=== PATIENT | female | born 1975 | race Caucasian/White ===

== ENCOUNTER 2019-08-14 16:37 | Outpatient (RCR) | payer BC, SELFPAY ==
--- NOTE | 2019-08-20 15:39 | PTOPEVAL ---
Thank you for referring this patient to [facility]. Please review, sign, date and return this plan of care JHONATAN. I agree with and certify that the following plan of care is medically necessary. Referring Physician Date Admitting Provider: Attending Provider: Saul Yost, Referring Provider: *PT Outpatient Evaluation Start: 08/14/19 17:03 Freq: Status: Active Protocol: Document 08/14/19 17:00 [facility] (Rec: 08/14/19 17:23 [facility] [id number]) Therapy Assessment Status Assessment Status Assessment Status Evaluation Evaluation Information Problem Diagnosis L illiopsoas tendinopathy Onset 05/08/19 Subjective Information patient reports she has no Query Text:As Reported By Patient/ injury. she reports around Family thanksgiving of this year she was having pain and instability of the L LE. she reports she did have an MRI of the L hip. she reports she does have a labral tear and a tendonitis of the L hip. she reports she had an injection last monday for the tendonitis . she report no change in symptoms (was worse for a few days). she reports she has increased pain with lifting her LE up into her car and into bed. 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 Prior Level of Function Comments Additional Prior Level of Function prior to thanks, she Comments reports she was without any pain or symptoms of the L LE. she reports no change or increase in activity. Pain Assessment Timing of Pain Assessment Timing of Pain Assessment Assessment Pain Scale Pain Scale Used Numeric (1 - 10) Self Report Pain Assessment Left Hip(s) Reported Pain Level 6 Pain Description Aching,Sharp,Stabbing, Throbbing Current Pain Intensity 6 Lowest Pain Intensity 5 Greatest Pain Intensity 10 Pain Aggravating Factors Lifting,Walking,Weight Bearing /Standing Other Pain Aggravating Factors better in the mornings Pain Score Pain Score 6: Self Report Lower Extremity Range of Motion Hip Range of Motion Left Hip Flexion Range of Motion - Active 100
--- NOTE | 2019-08-22 17:09 | PCPTNOTE ---
08/22/19 - patient called and cancelled therapy visit this date. JTF
--- NOTE | 2019-10-29 11:15 | PCPTNOTE ---
Spoke to patient and she stated she will call us back if she gets an opportunity to come back to therapy. Because of her work schedule she does not have time now. LJ
== END 2019-08-20 08:13 | disposition home or self-care (01) ==
LOC: CHSPT 16:37
PROVIDERS: Visit Provider Orthopaedic Surgery
DX: M76.12 Psoas tendinitis, left hip (principal)
CPT/HCPCS: 97014; 97110; 97161; G0283

== ENCOUNTER 2019-08-28 09:37 | Outpatient (CLI) | payer BC, SELFPAY ==
--- NOTE | ~2019-08-28 | MM_ITS ---
EXAMINATION: MM screening [facility] BI w tunde HISTORY: Screening mammogram TECHNIQUE: Craniocaudal and mediolateral oblique 3-D tomosynthesis images were obtained and synthetic 2-D images were generated. CAD analysis was submitted and interpreted. COMPARISON: 07/10/2018, 07/11/2017, 04/08/2016 BREAST PARENCHYMAL COMPOSITION: The breasts are extremely dense, which lowers the sensitivity of mamm ography. FINDINGS: There are bilateral breast masses which are stable to decreased in size. There is no eviden ce of suspicious mass, calcification, or architectural distortion to suggest malignancy in either elbert ast. There has been no suspicious interval change. IMPRESSION: 1. No mammographic evidence of malignancy. 2. Recommend routine screening mammography in one year. BI-RADS Category 2: Benign finding(s). Reviewed, dictated and finalized at location A.
== END 2019-08-28 09:38 | disposition home or self-care (01) ==
LOC: ANHIMG 09:41
PROVIDERS: Visit Provider Obstetrics & Gynecology
DX: Z12.31 Encounter for screening mammogram for malignant neoplasm of breast (principal)
CPT/HCPCS: 77063; 77067

== ENCOUNTER 2020-10-21 07:44 | Outpatient (CLI) | payer BC, SELFPAY ==
--- NOTE | ~2020-10-21 | MM_ITS ---
EXAMINATION: MM screening [facility] BI w tunde HISTORY: Screening TECHNIQUE: Craniocaudal and mediolateral oblique 3-D tomosynthesis images were obtained and synthetic 2-D images were generated. CAD analysis was submitted and interpreted. COMPARISON: Comparison to multiple prior studies sequentially, with oldest reviewed study dated 03/20. BREAST PARENCHYMAL COMPOSITION: The breasts are extremely dense, which lowers the sensitivity of mamm ography. FINDINGS: There are bilateral breast masses which are obscured by dense fibroglandular tissue in the lower half of the right breast and lower central aspect of the left breast. There are benign right br east calcifications. No architectural distortion. IMPRESSION: 1. Bilateral breast masses. 2. Additional mammographic views and possible breast ultrasound are recommended. BI-RADS CATEGORY 0 - INCOMPLETE STUDY, NEED ADDITIONAL IMAGING EVALUATION. Reviewed, dictated and finalized at location A. IMPRESSION: 1. Bilateral breast masses. 2. Additional mammographic views and possible breast ultrasound are recommended . BI-RADS CATEGORY 0 - INCOMPLETE STUDY, NEED ADDITIONAL IMAGING EVALUATION.
== END 2020-10-21 07:45 | disposition home or self-care (01) ==
LOC: ANHIMG 07:50
PROVIDERS: Visit Provider Obstetrics & Gynecology
DX: Z12.31 Encounter for screening mammogram for malignant neoplasm of breast (principal); R92.8 Other abnormal and inconclusive findings on diagnostic imaging of breast
CPT/HCPCS: 77063; 77067

== ENCOUNTER 2020-10-28 16:44 | Emergency (ER) | payer BC, SELFPAY ==
--- NOTE | ~2020-10-28 | CT_ITS ---
EXAMINATION: CT lumbar spine w con EXAM DATE: 10/28/2020 20:31 INDICATION: Low back pain radiating down legs. Clinical concern for infection. TECHNIQUE: Spiral CT of the lumbar spine was performed following intravenous injection of 100 mL Omni paque 350 solution. Axial, coronal and sagittal images lumbar spine were reviewed. The dose-length product (DLP) for this examination was 732.06 mGy-cm. The exposure was tailored according to patien t size (auto mA exposure control), and iterative reconstruction (ASIR) was used as additional dose re duction technique. There is no prior study for comparison. FINDINGS: No endplate erosive change or evidence of paraspinal fluid collection or inflammation. Ther e are mild disc bulges at L3-4 and L4-5, with mild central canal stenosis at these 2 levels. Number t glynn mild lower lumbar neural foraminal stenosis. Mild to moderate facet arthropathy from L3 down. Sac rum, sacroiliac joints, sacral arcuate lines are intact. There are no acute fractures identified. Th ere are cholecystectomy clips. There are no areas of abnormal enhancement on the post contrast images . The kidneys were also imaged and there is no hydronephrosis or evidence of pyelonephritis. IMPRESSION: 1. No acute lumbar findings. 2. Mild to moderate lower lumbar facet arthropathy. 3. Mild disc disease. Reviewed, dictated and finalized at location A.
[2020-10-28 16:57] VITALS: BP 114/53; PULSE 102; RESP 16; TEMP 36.1; O2SAT 100
[2020-10-28 17:10] LABS: Basophils Percent Auto 0.4 % (0.2-1.2); Eosinophils Absolute Auto 0.1 K/mm3 (0-0.3); Eosinophils Percent Auto 1.6 % (0-4.4); Hematocrit 38.5 % (37.0-47.0); Hemoglobin 12.1 g/dL (12.0-15.0); Immature Granulocyte Absolute 0.05 K/mm3 (0.00-0.031); Immature Granulocyte Percent A 0.6 % (0-0.5); Lymphocytes Absolute Auto 2.83 K/mm3 (0.9-3.2); Lymphocytes Percent Auto 34.1 % (18.3-44.2); Mean Corpuscular HGB Conc 31.4 g/dl (32-36); Mean Corpuscular Hemoglobin 27.6 pg (26-34); Mean Corpuscular Volume 87.7 fl (80-100); Mean Platelet Volume 9.5 fl (7.4-10.4); Monocytes Absolute Auto 0.7 K/mm3 (0.1-0.6); Monocytes Percent Auto 8.3 % (2.6-8.5); Neutrophils Absolute Auto 4.6 K/mm3 (1.3-6.7); Platelet Count Result 261 k/mm3 (150-375); Red Blood Count 4.39 M/mm3 (4.2-5.4); Red Cell Distribution Width 13.2 % (11.5-14.5); White Blood Count 8.3 K/mm3 (4.5-10.0)
[2020-10-28 17:23] LABS: Alanine Aminotransferase 13 U/L (4-35); Albumin Level 4.4 g/dL (3.5-5.1); Alkaline Phosphatase 73 U/L (38-126); Anion Gap 4 mmol/L (8-16); Aspartate Amino Transferase 23 U/L (14-36); Bilirubin,Total < 0.1 mg/dL (0.2-1.3); Blood Urea Nitrogen 11 mg/dL (7-17); CRP 0.7 mg/dL (<1.0); Calcium 9.2 mg/dL (8.4-10.2); Carbon Dioxide 31 mmol/L (22-30); Chloride 104 mmol/L (98-107); Estimated CRCL calculation 92 ml/min; Estimated Glomerular Filt Rate > 60; Glucose 103 mg/dL (65-105); Potassium 3.9 mmol/L (3.4-5.0); Sodium 139 mmol/L (137-145)
[2020-10-28 17:32] LABS: Add Urine Microscopic? NO; Appearance Urine Clear (Clear); Bilirubin Urine Negative (Negative); Blood Urine Negative (Negative); Color Urine Yellow (Yellow); Glucose Urine UA Negative (Negative); Ketones Urine Negative (Negative); Leukocyte Esterase Ur Negative LEU/UL (Negative); Nitrate Urine Negative (Negative); Protein Urine Negative (Negative); Specific Grav Ur 1.012 (1.001-1.035); Urobilinogen Urine Negative mg/dL (<2.0)
[2020-10-28 17:57] LABS: Erythrocyte Sedimentation Rate 9 mm/hr (0-20)
[2020-10-28 18:27] LABS: Amphetamine Screen Urine Negative (Negative); Barbiturate Screen Urine Negative (Negative); Benzodiazepines Screen Urine Negative (Negative); Cannabinoid Screen Urine Negative (Negative); Cocaine Screen Urine Negative (Negative); Methadone Screen Urine Negative (Negative); Opiate Screen Urine Negative (Negative); Phencyclidine Screen Urine Negative (Negative)
--- NOTE | 2020-10-28 19:22 | ED.BACK ---
HPI - Back Pain/Injury General Chief Complaint: Back Pain/Injury Stated Complaint: back pain Time Seen by Provider: 10/28/20 18:49 History of Present Illness HPI Narrative: Patient is a 45-year-old female who presents ER with low back pain and fecal incontinence. Patient reports she has had some intermittent back pain over the last couple months. This is been related to a UTI that required multiple doses of antibiotics for treatment. She has been on 4 rounds of antibiotics most recently completed in last week. She reports her back pain came back yesterday. Its in the very low back and radiates typically into her low but. Now she is occasionally getting some radiation into her lower leg. Worse with walking. Reports she typically has bowel movements every 3 days and she consents her ability to defecate. Reports she woke up last night and had had a diarrhea event in her bed. She then had a second 1 later on. Today while at work she had a third event where she had liquid stool incontinence. Each bowel movement became progressively smaller in volume. She denies having crampy abdominal pain. She reports she continues to have sensation within her perineum. She has no physical weakness to her legs. She has no trauma to her back. No known injury. Related Data Home Medications Medication Instructions Recorded Confirmed bupropion HCl mg PO 10/28/20 famotidine [Pepcid] 20 mg PO PRN 10/28/20 Allergies Allergy/AdvReac Type Severity Reaction Status Date / Time latex Allergy Anaphylaxis Verified 10/28/20 19:00 Review of Systems Review of Systems: All systems reviewed & are unremarkable except as noted in HPI and below Constitutional: Constitutional: Denies chills, Denies fever(s) and Denies weakness Gastrointestinal: Gastrointestinal: Denies abdominal pain, Denies bloating, Reports diarrhea, Denies nausea and Denies vomiting Genitourinary: Genitourinary: Denies nocturia, Denies dysuria, Denies flank pain and Denies urinary incontinence Musculoskeletal: Musculoskeletal: Reports back pain, Denies joint swelling and Denies muscle cramps Neurologic: Denies focal weakness and Denies numbness PMF Past Medical History Medical History (Updated 10/28/20 @ 20:50 by Arpit Small MD) Depression Ulnar tunnel syndrome Surgical History Surgical History (Updated 10/28/20 @ 19:28 by Arpit Small MD) Fusion of toes History of cholecystectomy Social History Social History (Updated 10/28/20 @ 19:28 by Arpit Small MD) Smoking status: Never smoker Exam Narrative: Exam Narrative: GENERAL: Well-appearing, well-nourished, and in no acute distress. HEAD: Normocephalic, atraumatic. ENT: Mucous membranes moist. CHEST: Clear to auscultation. No respiratory distress. HEART: Regular rate and rhythm. Normal peripheral pulses. ABDOMEN: Soft, nontender, nondistended. Back: Mild tenderness bilateral SI region and midline at L5, no swelling/redness/bruising/spam. : Normal sensation around the vagina/perineum/rectum, normal rectal tone on SAMANTHA. EXTREMITIES: BLE with normal strength and sensation. SKIN: Warm, dry, no rash. NEURO: Alert and oriented x3. Course Course Emergency Course: Pain improving with Toradol. Informed results. Feels comfortable with discharge plan. Vital Signs Vital signs: Vital Signs Temperature 97.0 F L 10/28/20 16:57 Pulse Rate 102 H 10/28/20 16:57 Respiratory Rate 16 10/28/20 16:57 Blood Pressure 114/53 L 10/28/20 16:57 Pulse Oximetry 100 10/28/20 16:57 Temperature 97.0 F L 10/28/20 16:57 Pulse Rate 102 H 10/28/20 16:57 Respiratory Rate 16 10/28/20 16:57 Blood Pressure 114/53 L 10/28/20 16:57 Pulse Oximetry 100 10/28/20 16:57 MDM - Back Pain/Injury Lab Data Result diagrams: 10/28/20 17:05 10/28/20 17:05 Labs: Lab Results 10/28/20 10/28/20 10/28/20 Range/Units 17:05 17:05 17:15 WBC 8.3 (4.5-10.0) K/m
[2020-10-28] MEDS: KETOROLAC 30 MG/ML VIAL (*BKC) IV PUSH (20:17)
[2020-10-28 21:57] VITALS: BP 121/62; PULSE 89; RESP 16; O2SAT 99
== END 2020-10-28 21:56 | disposition home or self-care (01) ==
PROVIDERS: Emergency Medicine Emergency Medical Services; Emergency Provider Emergency Medicine
DX: M54.5 Low back pain (principal); F32.9 Major depressive disorder, single episode, unspecified
CPT/HCPCS: 36415; 72132; 80053; 80307; 81003; 81025; 85025; 85652; 86140; 96374; 99284; J1885; Q9967

== ENCOUNTER 2020-11-10 12:17 | Outpatient (CLI) | payer BC, SELFPAY ==
--- NOTE | ~2020-11-10 | MMUS_ITS ---
EXAMINATION: MM diagnostic mammo BI, US breast BI complete HISTORY: Bilateral breast masses reported on 10/21/2020 screening mammogram TECHNIQUE: Additional 3-D tomosynthesis images of both breasts were performed and synthetic 2-D image s were generated. CAD analysis was submitted and interpreted. High resolution bilateral complete saleem st ultrasound was performed. COMPARISON: 10/21/2020 bilateral digital screening mammogram FINDINGS: MAMMOGRAPHIC FINDINGS: Occasional bilateral punctate benign-appearing microcalcifications are noted. Bilateral circumscribed breast masses are suggested, measuring up to 2 cm in the central left breast, with halo sign, suggesting cyst. Given the presence of bilateral masses and the very dense stroma which may obscure masses, bilateral complete breast ultrasound examination was performed. ULTRASOUND: There are multiple bilateral sonolucent lesion with posterior enhancement consistent with simple cyst , measuring up to 2 cm maximal dimension on the right at 12:00 and 2 cm maximal dimension on the left at 12:00 position as well. There is one complicated cyst of the right breast at 2:00, measuring 5.9 x 8.3 x 11.4 mm, without int ernal vascularity, with through transmission. IMPRESSION: 1. Benign findings. Multiple bilateral breast cysts; no mammographic evidence of malignancy 2. Routine mammographic screening is recommended, with ultrasound supplementation as clinically appro priate BI-RADS Category 2: Benign finding(s). Reviewed, dictated and finalized at location A. IMPRESSION: 1. Benign findings. Multiple bilateral breast cysts; no mammographic evidence o f malignancy 2. Routine mammographic screening is recommended, with ultrasound supplementati on as clinically appropriate BI-RADS Category 2: Benign finding(s).
== END 2020-11-10 12:18 | disposition home or self-care (01) ==
PROVIDERS: Visit Provider Obstetrics & Gynecology
DX: N60.11 Diffuse cystic mastopathy of right breast (principal); N60.12 Diffuse cystic mastopathy of left breast
CPT/HCPCS: 76641; 77066

== ENCOUNTER 2021-12-21 07:33 | Outpatient (CLI) | payer OTHER, SELFPAY ==
--- NOTE | ~2021-12-21 | MM_ITS ---
EXAMINATION: MM screening [facility] BI w tunde HISTORY: Screening TECHNIQUE: Craniocaudal and mediolateral oblique 3-D tomosynthesis images were obtained and synthetic 2-D images were generated. CAD analysis was submitted and interpreted. COMPARISON: Comparison to multiple prior studies sequentially, with oldest reviewed study dated 07/11. BREAST PARENCHYMAL COMPOSITION: The breasts are extremely dense, which lowers the sensitivity of mamm ography FINDINGS: There is no evidence of suspicious mass, calcification, or architectural distortion to sugg est malignancy in either breast. There has been no suspicious interval change. IMPRESSION: 1. No mammographic evidence of malignancy. 2. Recommend routine screening mammography in one year. BI-RADS Category 1: Negative Reviewed, dictated and finalized at location A.
== END 2021-12-21 07:34 | disposition home or self-care (01) ==
PROVIDERS: Visit Provider Obstetrics & Gynecology
DX: Z12.31 Encounter for screening mammogram for malignant neoplasm of breast (principal)
CPT/HCPCS: 77063; 77067

== ENCOUNTER 2022-07-11 07:12 | Outpatient (CLI) | payer OTHER, SELFPAY ==
[2022-07-11 07:49] LABS: Hemoglobin A1C 5.4 % (<5.7)
[2022-07-11 08:23] LABS: Alanine Aminotransferase 21 U/L (14-59); Albumin Level 4.3 g/dL (3.4-5.0); Alkaline Phosphatase 103 U/L (46-116); Anion Gap 10 mmol/L (8-16); Aspartate Amino Transferase 17 U/L (15-37); Bilirubin,Total 0.3 mg/dL (0.00-1.00); Blood Urea Nitrogen 17 mg/dL (7-18); Carbon Dioxide 26 mmol/L (21-32); Chloride 105 mmol/L (98-108); Cholesterol 191 mg/dL (0-200); Estimated Glomerular Filt Rate > 60; Glucose 96 mg/dL (70-99); HDL Direct 32 mg/dL (40-60); LDL Cholesterol Calculated 111 mg/dL (<130); Osmolality Calculated 293 mOsm/kg (285-295); Potassium 4.4 mmol/L (3.5-5.1); Sodium 141 mmol/L (136-145); Total Protein 7.5 g/dL (6.4-8.2); Triglycerides 242 mg/dL (0-150)
[2022-07-11 08:25] LABS: Thyroid Stimulating Hormone Reflex 1.29 u/IU/mL (0.36-3.74)
[2022-07-16 20:20] LABS: CRP, High Sensitivity >10.0 mg/L (***)
== END 2022-07-11 07:13 | disposition home or self-care (01) ==
LOC: CHSLAB 07:18
PROVIDERS: PCP Family Medicine
DX: E66.3 Overweight (principal); Z13.1 Encounter for screening for diabetes mellitus; Z13.220 Encounter for screening for lipoid disorders; Z13.29 Encounter for screening for other suspected endocrine disorder
CPT/HCPCS: 36415; 80053; 80061; 83036; 83525; 84443; 86141

== ENCOUNTER 2022-07-25 09:24 | Observation (INO) | payer OTHER, SELFPAY ==
[2022-07-25] VITALS (33 sets, daily range): BP systolic 99–126; BP diastolic 50–86; PULSE 69–114; RESP 11–20; TEMP 35.8–36.6; O2SAT 97–100; BMI 29.2; BMI 31.2
--- NOTE | ~2022-07-25 | MR_ITS ---
EXAMINATION: MR brain/brain stem wo con DATE: 07/26/2022 11:51 INDICATION: Dizziness. Migraine headache. TECHNIQUE: Magnetic resonance imaging (MRI) of the brain and brainstem was performed without intraven ous contrast. COMPARISON: Head CT 07/25/2022 FINDINGS: There is no intracranial hemorrhage, acute infarction, or abnormal intracranial mass lesion . There are a few areas of nonspecific increased T2-weighted signal intensity in the cerebral white m atter, which is within normal limits for the patient's age. The ventricles are normal in size. There is mild mucosal thickening in the ethmoid sinuses. The orbits are normal. The mastoid air cells are n ormal. IMPRESSION: 1. Normal brain. Reviewed, dictated and finalized at location A. IFIED TUMOR REGISTRAR IMPRESSION: 1. Normal brain.
--- NOTE | ~2022-07-25 | CT_ITS ---
EXAMINATION: CTA chest PE protocol DATE: 07/25/2022 14:55 INDICATION: Chest pain. Dyspnea. TECHNIQUE: Computed tomography angiography (CTA) of the chest was performed with 100 mL Omnipaque-350 intravenous contrast timed to evaluate the pulmonary arteries. Coronal maximum intensity projection 3D-reconstructions were created by the technologist. Automated exposure control and iterative reconst ruction technique were employed. The dose-length product was 251.02 mGy-cm. COMPARISON: None. FINDINGS: The lungs demonstrate mild atelectasis. No pleural effusion. The heart size is normal. No p ericardial effusion. There is no pulmonary embolus. There are changes of cholecystectomy. There is mo derate thoracic spondylosis. There is thoracic dextroscoliosis. IMPRESSION: 1. No pulmonary embolus. Reviewed, dictated and finalized at location A. TEGIC PLANNING DIRECTOR IMPRESSION: 1. No pulmonary embolus.
--- NOTE | ~2022-07-25 | XR_ITS ---
Clinical Indication: Chest pain PA and lateral views of the chest: Comparison: None Findings: The lungs are clear, without evidence of focal consolidation or pleural effusion. Cardiome diastinal silhouette is within normal limits. Bones and soft tissues are unremarkable. Impression: Normal chest. Reviewed, dictated and finalized at [facility]. FOREMAN Impression: Normal chest.
--- NOTE | ~2022-07-25 | CT_ITS ---
EXAMINATION: CT brain wo con DATE: 07/25/2022 12:25 INDICATION: Dizziness. TECHNIQUE: Computed tomography (CT) of the head was performed without intravenous contrast. The mA wa s adjusted according to patient size. Iterative reconstruction technique was employed. The dose-lengt h product was 605.33 mGy-cm. COMPARISON: None FINDINGS: There is no intracranial hemorrhage, acute infarction, or abnormal intracranial mass lesion . The ventricles are normal in size. There is mild mucosal thickening in the ethmoid sinuses. The orb its are normal. The mastoid air cells are normal. IMPRESSION: 1. Normal brain. Reviewed, dictated and finalized at location A. AL ASSISTANT IMPRESSION: 1. Normal brain.
--- NOTE | 2022-07-25 09:30 | ECG_ITS ---
Measurements Intervals Cutler Rate: 113 P: 77 NM: 136 QRS: 41 QRSD: 84 T: 72 QT: 303 QTc: 416 Interpretive Statements SINUS TACHYCARDIA NONSPECIFIC ST & T-WAVE ABNORMALITY BORDERLINE ECG NO PREVIOUS ECG AVAILABLE FOR COMPARISON Electronically Signed On 07-25-2022 16:18:00 SAFETY INSTRUCTOR by David Flores M.D.
[2022-07-25 10:03] LABS: Basophils Percent Auto 0.2 % (0.2-1.2); Eosinophils Percent Auto 0.5 % (0-4.4); Hematocrit 46.5 % (37.0-47.0); Hemoglobin 14.9 g/dL (12.0-15.0); Immature Granulocyte Absolute 0.03 K/mm3 (0.00-0.031); Immature Granulocyte Percent A 0.4 % (0-0.5); Lymphocytes Absolute Auto 1.68 K/mm3 (0.9-3.2); Mean Corpuscular Hemoglobin 27.3 pg (26-34); Mean Corpuscular Volume 85.3 fl (80-100); Mean Platelet Volume 9.1 fl (7.4-10.4); Monocytes Absolute Auto 0.5 K/mm3 (0.1-0.6); Monocytes Percent Auto 5.8 % (2.6-8.5); Neutrophils Absolute Auto 6.1 K/mm3 (1.3-6.7); Neutrophils Percent Auto 73.1 % (45.5-73.1); Platelet Count Result 304 k/mm3 (150-375); Red Blood Count 5.45 M/mm3 (4.2-5.4); White Blood Count 8.4 K/mm3 (4.5-10.0)
[2022-07-25 10:15] LABS: Prothrombin Time 13.1 Seconds (11.1-14.7)
[2022-07-25 10:16] LABS: Partial Thromboplastin Time 32.4 SECONDS (22.3-36.8)
[2022-07-25 10:18] LABS: Alanine Aminotransferase 20 U/L (6-35); Albumin Level 4.7 g/dL (3.5-5.1); Alkaline Phosphatase 102 U/L (38-126); Anion Gap 9 mmol/L (8-16); Aspartate Amino Transferase 22 U/L (14-36); Bilirubin,Total 0.7 mg/dL (0.2-1.3); Blood Urea Nitrogen 17 mg/dL (7-17); Calcium 8.3 mg/dL (8.4-10.2); Carbon Dioxide 22 mmol/L (22-30); Chloride 102 mmol/L (98-107); Estimated Glomerular Filt Rate > 60; Glucose 98 mg/dL (65-110); Lipase 80 U/L (23-300); Potassium 3.4 mmol/L (3.4-5.0); Sodium 133 mmol/L (137-145)
[2022-07-25 10:29] LABS: Troponin I < 0.012 ng/mL (0.000-0.034)
--- NOTE | 2022-07-25 12:16 | ED.CHESTPAIN ---
HPI - Chest Pain General Chief Complaint: Chest Pain Stated Complaint: chest pain, sob, nausea, dizziness Time Seen by Provider: 07/25/22 12:03 Source: RN notes reviewed History of Present Illness HPI narrative: Patient presents emergency department from home for chest pain. Patient symptoms began approximately 5 PM last night. Pain is located over the left side of the chest and radiates around into the left shoulder blade as well as up into the left neck the pain is described as a pressure in nature. States that nothing makes his symptoms better or worse states that the pain has been constant since last night states it was initially associated with nausea but denies any nausea at this time but does note shortness of breath she states that she is also been dizzy since that time states dizziness is worse with moving her head as well as sitting upright and improved with laying down flat she denies any numbness or weakness to the extremities she denies any vision changes or any other focal deficits Related Data Home Medications Medication Instructions Recorded Confirmed famotidine 20 mg tablet (Pepcid) 20 mg PO PRN ind 10/28/20 12/29/21 Allergies Allergy/AdvReac Type Severity Reaction Status Date / Time latex Allergy Unknown Unknown Verified 07/25/22 12:02 Review of Systems Review of Systems: Gen.: Denies fevers or chills Eyes: Denies eye pain or visual change ENT: Denies congestion Respiratory: Reports shortness of breath CV: Reports chest pain GI: Reports nausea denies abdominal pain vomiting or diarrhea Musculoskeletal: Denies back pain or muscle pain Neuro: See HPI Skin: Denies rash Except as documented, all other systems reviewed and negative PMFSH Past Medical History Medical History Acid reflux Anemia Anxiety 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 Depression Depression Dyssynergia Migraines Ulnar tunnel syndrome Vaginal delivery Surgical History Surgical History Fusion of toes History of bilateral salpingectomy History of cholecystectomy History of hip replacement History of laparoscopic-assisted vaginal hysterectomy Hx of tonsillectomy Family History Family History Father Diabetes mellitus Family history of hypercholesterolemia Hypertension Malignant neoplasm of prostate Cerebrovascular accident Mother Diabetes mellitus Family history of hypercholesterolemia Hypertension Patient's mother is in good health Cerebrovascular accident Social History Social History Smoking status: Never smoker Alcohol intake: current Exam Narrative: APPEARANCE: No acute distress, nontoxic, resting in bed HEENT: Normocephalic, atraumatic, OMM, TMs clear bilaterally EYES: PERRL, EOMI RESPIRATORY: No respiratory distress, clear to auscultation bilaterally with no rhonchi wheezing or rales CARDIOVASCULAR: RRR s murmur ABDOMINAL: Soft, nontender, nondistended MUSCULOSKELETAL: Moves all extremities. No clubbing, cyanosis or edema. NEURO: A and O ?3, following commands, speech normal, cranial nerves II through XII grossly intact,muscle strength 5 out of 5 bilateral upper and lower extremities no pronator drift SKIN:: Warm, dry. Normal Color PSYCHIATRIC: Normal affect/mood Course Course Emergency Course: Patient continues to have dizziness following Antivert Valium given at that time with no change in dizziness Patient continues to still note chest pain Discussed with DAISY Gandara for Dr. Beth presentation work-up agrees with admission Discussed with patient and family results of workup and diagnosis. Discussed need for admission. Patient and family understand and agree to current treatment plan Vital Signs Vital signs: Vital Signs Temperature 97.1 F L 07/25/22 09:44 Pulse Rate 114 H
[2022-07-25] MEDS: MECLIZINE HCL 25 MG TABLET PO (12:18)
[2022-07-25] MEDS: SODIUM CHLORIDE 0.9% IV 1,000 ML 999 ML IV CONT (12:54)
[2022-07-25 13:04] LABS: Troponin I < 0.012 ng/mL (0.000-0.034)
[2022-07-25 13:29] LABS: D Dimer 0.42 ug/mL (<0.48)
[2022-07-25] MEDS: KETOROLAC 30 MG/ML VIAL (*BKC) IV PUSH (14:02)
[2022-07-25] MEDS: diazePAM (*CRX) 2 MG TABLET PO (15:09)
[2022-07-25 15:50] LABS: Troponin I < 0.012 ng/mL (0.000-0.034)
[2022-07-25 16:34] LABS: Influenza A QL RT-PCR Negative (Negative); Influenza B QL RT-PCR Negative (Negative); SARS-CoV-2 RNA PCR Negative
[2022-07-25] MEDS: SODIUM CHLORIDE 0.9% IV 1,000 ML 75 ML IV CONT (18:06)
--- NOTE | 2022-07-25 18:12 | ADMGEN ---
This patient, Kaykay Collins, was admitted to IMU Room 211-01. Patient/family oriented to hospital policies and general routines including ID bracelet, bed and alarms, visiting hours, pain management, procedures, bathroom and other care routines, personal items, smoking policy, room service/diet, and visiting hours. Information on how to activate the Rapid Response Team has been discussed. Patient/Family are encouraged to report perceived risks to care and to ask questions if they do not understand what they are told or what they should do.
[2022-07-25] MEDS: ACETAMINOPHEN/ASPIRIN/CAFFEINE 250-250-65 MG TABLET 1 TABLET PO (21:28)
--- NOTE | 2022-07-25 22:07 | PM.IMHP ---
H&P: HPI History of Present Illness Date/Time: 07/25/22 22:07 Chief Complaint: Chest pain Narrative: This is a 46-year-old female patient who came to the emergency room for complaints of chest pain. The symptoms started around 5:00 p.m. last night. Is open left-sided chest and radiates into her left shoulder blade and upper left neck. She stated that she is pressure in nature. The patient was complaining of pain that was pretty constant. She also complained some a migraine and feeling dizzy. Her dizziness is more positional but occasionally the room is spinning. She denies any numbness or weakness. She was slightly nauseated. No fever chills or diarrhea. No visual changes or focal weakness. Sodium is 133. Troponin negative x2. Patient is negative for influenza a B and COVID. EKG was read as sinus tachycardia. Heart rate 113. Chest CTA read as no pulmonary embolus. Head CT was read as normal brain. Chest x-ray read as normal chest. The patient was given aspirin, Antivert, IV fluids, Toradol, and Valium. The patient stated that she slept but she was still dizzy when she woke up. The patient is being admitted to observation status on the date of service of 07/25/2022. Review of Systems Review of Systems: See HPI All systems reviewed & are unremarkable except as noted in HPI and below Constitutional: Constitutional: Reports as per HPI and Reports no additional constitutional complaints Eyes: Eyes: Reports as per HPI and Reports no additional eye complaints ENT: Reports system reviewed and no additional complaints, except as documented and Reports Normal hearing present Cardiovascular: Cardiovascular: Reports no additional cardiovascular complaints Respiratory: Respiratory: Reports no additional respiratory complaints and Reports no additional respiratory complaints Gastrointestinal: Gastrointestinal: Reports as per HPI and Reports no additional gastrointestinal complaints Musculoskeletal: Musculoskeletal: Reports no additional musculoskeletal complaints Integumentary/Breasts: Skin/Breast: Reports system reviewed and no additional complaints, except as docu and Reports as per HPI Neurologic: Reports system reviewed and no additional complaints, except as documented, Reports as per HPI and Reports Normal hearing present Psychiatric: Psychiatric: Reports no additional psychiatric complaints and Reports as per HPI Endocrine: Endocrine: Reports no additional endocrine complaints Hematologic/Lymphatic: Hematologic/Lymphatic: Reports no additional hematologic/lymphatic complaints Allergic/Immunologic: Allergic/Immunologic: Reports no additional allergic/immunologic complaints [facility] Past Medical History Medical History Acid reflux Anemia Anxiety 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 Depression Depression Dyssynergia Migraines Ulnar tunnel syndrome Vaginal delivery Surgical History Surgical History Fusion of toes History of bilateral salpingectomy History of cholecystectomy History of hip replacement History of laparoscopic-assisted vaginal hysterectomy Hx of tonsillectomy Family History Family History Father Diabetes mellitus Family history of hypercholesterolemia Hypertension Malignant neoplasm of prostate Cerebrovascular accident Mother Diabetes mellitus Family history of hypercholesterolemia Hypertension Patient's mother is in good health Cerebrovascular accident Social History Social History (Updated 07/25/22 @ 23:39 by Nichol Medina NP) Social History: The patient is and she has 2 children. She occasionally drinks a glass a wine. 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 She occasionally drinks a glass of wine. Her is the power deputy attorney general for healthcare Code status full code Smoking status: Never smoker
[2022-07-26] VITALS (12 sets, daily range): BP systolic 108–123; BP diastolic 55–68; PULSE 70–100; RESP 18–20; TEMP 36.2–36.4; O2SAT 99–100
--- NOTE | 2022-07-26 | ECHO_ITS ---
Patient Info Name: Kaykay Collins Age: 46 years : 1975 Gender: Female Ht: 66 in Wt: 193 lbs BSA: 2.05 m2 HR: 83 bpm BP: 108 / 61 mmHg Heart Rhythm: Sinus Rhythm Exam Date: 07/26/2022 9:16 AM Exam Location: [facility] Pulmonary Patient Status: Inpatient Admit Date: 07/25/2022 Staff Ordering Physician: Nichol Medina NP Stencil Sprayer: Kermit Machado, BARRY, RT Attending Provider: Milli Beth MD Referring Physician: Carol HYMAN; Exam Type: CA echo dop color flow w con Study Info Indications R00.0 - Tachycardia, unspecified R42 - Dizziness and giddiness Complete two-dimensional, color flow and Doppler transthoracic echocardiogram is performed with contrast to opacify the left ventricle and to improve the deliniation of the left ventricle endocardial borders. Summary 1. Left ventricular chamber dimension is normal. 2. Left ventricular systolic function is normal, estimated at 65-70%. 3. The left ventricular diastolic function is normal. 4. Right ventricular systolic function is normal. 5. There is trace mitral valve regurgitation. 6. There is mild tricuspid valve regurgitation. Left Ventricle Left ventricular chamber dimension is normal. Left ventricular systolic function is normal, estimated at 65-70%. There is no increased left ventricular wall thickness. The left ventricular diastolic function is normal. Right Ventricle Right ventricular chamber dimension is normal. Right ventricular systolic function is normal. Left Atria Left atrial chamber dimension is normal. Right Atria Right atrial chamber dimension is normal. Atrial Septum Intact interatrial septum visualized by color flow imaging. Aortic Valve The aortic valve is probable trileaflet. There is no aortic valve stenosis. There is no aortic valve regurgitation. Pulmonic Valve The pulmonic valve is not well visualized. Mitral Valve The mitral valve has normal leaflets. There is no mitral valve stenosis. There is trace mitral valve regurgitation. Tricuspid Valve There is mild tricuspid valve regurgitation. Pericardium/Pleural There is no pericardial effusion. Inferior Vena Cava Normal inferior vena cava with >50% collapse upon inspiration consistent with normal right atrial pressure, 3 mmHg. Aorta The aortic root size at the sinus of Valsalva is normal. Left Ventricular Outflow Tract Name Value Normal LVOT 2D LVOT Diameter 1.96 cm LVOT Doppler LVOT Peak Gradient 4 mmHg LVOT Mean Gradient 2 mmHg LVOT VTI 18.67 cm LVOT VTI/AV VTI Ratio 0.79 LVOT Stroke Volume 56.48 ml LVOT CO 4.88 l/min LVOT CI 2.38 L/min/m2 Mitral Valve Name Value Normal MV Doppler
[2022-07-26] MEDS: ACETAMINOPHEN/ASPIRIN/CAFFEINE 250-250-65 MG TABLET 1 TABLET PO ×2 (03:52→13:22)
[2022-07-26] MEDS: MECLIZINE HCL 12.5 MG TABLET PO ×2 (03:53→13:22)
[2022-07-26 05:16] LABS: Basophils Percent Auto 0.2 % (0.2-1.2); Eosinophils Absolute Auto 0.1 K/mm3 (0-0.3); Hematocrit 38.2 % (37.0-47.0); Hemoglobin 11.8 g/dL (12.0-15.0); Immature Granulocyte Absolute 0.01 K/mm3 (0.00-0.031); Immature Granulocyte Percent A 0.2 % (0-0.5); Lymphocytes Absolute Auto 2.13 K/mm3 (0.9-3.2); Lymphocytes Percent Auto 42.5 % (18.3-44.2); Mean Corpuscular HGB Conc 30.9 g/dl (32-36); Mean Corpuscular Hemoglobin 26.6 pg (26-34); Mean Platelet Volume 9.5 fl (7.4-10.4); Monocytes Absolute Auto 0.5 K/mm3 (0.1-0.6); Monocytes Percent Auto 9.2 % (2.6-8.5); Neutrophils Absolute Auto 2.3 K/mm3 (1.3-6.7); Neutrophils Percent Auto 45.9 % (45.5-73.1); Platelet Count Result 259 k/mm3 (150-375); Red Blood Count 4.44 M/mm3 (4.2-5.4); Red Cell Distribution Width 12.9 % (11.5-14.5)
[2022-07-26 05:30] LABS: Magnesium 2.1 mg/dL (1.6-2.3)
[2022-07-26 05:32] LABS: Alanine Aminotransferase 17 U/L (6-35); Albumin Level 3.5 g/dL (3.5-5.1); Alkaline Phosphatase 82 U/L (38-126); Anion Gap 4 mmol/L (8-16); Aspartate Amino Transferase 25 U/L (14-36); Bilirubin,Total 0.4 mg/dL (0.2-1.3); Blood Urea Nitrogen 12 mg/dL (7-17); Calcium 7.6 mg/dL (8.4-10.2); Carbon Dioxide 25 mmol/L (22-30); Chloride 107 mmol/L (98-107); Estimated CRCL calculation 109 ml/min; Estimated Glomerular Filt Rate > 60; Glucose 98 mg/dL (65-110); Potassium 3.5 mmol/L (3.4-5.0); Sodium 136 mmol/L (137-145)
[2022-07-26] MEDS: SODIUM CHLORIDE 0.9% IV 1,000 ML 75 ML IV CONT (08:01)
[2022-07-26] MEDS: ENOXAPARIN 40 MG/0.4 ML SYRINGE SUB-Q (08:29)
[2022-07-26] MEDS: FAMOTIDINE 20 MG/2 ML VIAL IV PUSH (08:29)
[2022-07-26] MEDS: PERFLUTREN LIPID MICROSPHERES 1.5 ML VIAL DILUTED TO 10 ML TOTAL VOLUME IV PUSH (09:32)
--- NOTE | 2022-07-26 09:33 | IVDEFINITY ---
Prior to administration of IV Definity the patient was educated on the risks and benefits of the imaging enhancing agent including potential adverse side effects. The patient verbalized understanding. Allergies were verified. No exclusion criteria were identified and at least one of the following inclusion criteria were met: 1) physician request, 2) patient technically difficult to image (per the [place] [employer] guidelines of two or more segments not discernable within the apical view), or 3) questionable left ventricular function. ?
--- NOTE | 2022-07-26 11:25 | PC.NURSE ---
Pt to MRI via wheelchair. IV fluids paused. Family at bedside
--- NOTE | 2022-07-26 11:58 | PC.NURSE ---
Pt returned from MRI. IV fluids resumed
--- NOTE | 2022-07-26 14:17 | PM.DS ---
DS: Admitting Diagnosis Discharge Date 07/26/22 Admitting Diagnosis Dizziness and chest pain DS: Discharge Diagnosis Discharge Diagnosis (1) Chest pain: Code(s): R07.9 - Chest pain, unspecified Status: Acute (2) Dizziness: Code(s): R42 - Dizziness and giddiness Status: Acute (3) Headache: Code(s): R51.9 - Headache, unspecified Status: Acute DS: Summary Hospital Course Reason for hospitalization: 46yo female with chronic neck pain and migraines here for dizziness and chest pain. Please see H&P for details. Hospital Course: Patient presents with complaints of dizziness and chest pain. Chest pain was constant with severity increasing and decreasing. Pain was in the left upper chest occasionally radiated to the neck. Was also occasionally associated with shortness of breath and nausea. She also developed dizziness it was severe enough that she had difficulty standing. The dizziness was initially room spinning sensation specially when she was recumbent but when she was standing felt more lightheaded. She is on a keto diet the past week. No diarrhea. No vomiting. She also has neck pain that she thinks this is causing her posterior headache. The neck pain is chronic. She also has chronic headaches. Symptoms started about 2 days ago and did improve on the day of admission. She had a negative stress test that was 4-5 years ago. On presentation to the emergency room, her pulse rate was 114 otherwise her vital signs were normal. Pulse rate improved on recheck. She was not hypoxic. EKG showed sinus tachycardia at a rate of [address]-T wave changes. Echocardiogram showed normal LV size and function with EF of 65-70% and mild valvular disease. Chest x-ray was clear. Head CT showed no acute findings. CTA of the chest showed no pulmonary emboli or infiltrative lung process. MRI of the brain was normal. CBC, PT/PTT and d-dimer were normal. CMP normal. Trop negative x3. COVID and influenza negative as well. Chest pain resolved. She continued to have headache but felt this was more chronic. Patient felt comfortable with plan for discharge home. Patient overall did well and was able be discharged home on 07/26/2022. Status at Discharge Cognitive/behavioral status at discharge: Stable Time Spent with Patient Time attestation: Total time spent providing and/or coordinating discharge services: 32 minutes Time spent: Greater than 30 minutes Exam Narrative: AF 123/58 82 18 100% ra Gen - NARD Chest - CTA bilaterally, nml RR CV - RRR S1/S2. Telemetry showing no significant dysrhythmias. Abd - Soft, NT/ND, Positive BS Ext - No pedal edema Neuro - Alert and oriented. Nonfocal exam. Psych - Nml mood and affect Skin - Warm and dry DS: Data Data Completed and Pending Labs on day of discharge: Labs from last 24 hours 07/26/22 07/26/22 07/26/22 04:59 04:59 04:59 WBC RBC Hgb Hct MCV MCH MCHC RDW Plt Count MPV Immature Gran % (Auto) Neut % (Auto) Lymph % (Auto) Darke % (Auto) Eos % (Auto) Baso % (Auto) Lymph # (Auto) Darke # (Auto) Eos # (Auto) Baso # (Auto) Abs Immat Gran (auto) Absolute Neuts (auto) Absolute Nucleated RBC Nucleated RBC % Sodium 136 L Potassium 3.5 Chloride 107 Carbon Dioxide 25 Anion Gap 4 L BUN 12 D Creatinine 0.60 L Estim Creat Clear Calc 109 Estimated GFR > 60 Glucose 98 Calcium 7.6 L Magnesium 2.1 Total Bilirubin 0.4 AST 25 ALT 17 Alkaline Phosphatase 82 Troponin I Total Protein 6.0 L Albumin 3.5 TSH (Reflex) 2.550 Influenza A (RT-PCR) Influenza B (RT-PCR) SARS-CoV-2 RNA (RT-PCR) 07/26/22 07/25/22 07/25/22 04:59 15:55 15:21 WBC 5.0 RBC 4.44 Hgb 11.8 L D Hct 38.2 MCV 86.0 MCH 26.6 MCHC 30.9 L RDW 12.9 Plt Count 259 MPV 9.5
== END 2022-07-26 15:15 | disposition home or self-care (01) ==
LOC: ANHED 12:21 → ANHIMU 17:20
PROVIDERS: General Practice; Nurse Practitioner; Admitting Provider Family Medicine; Emergency Provider Emergency Medicine; PCP Family Medicine; Visit Provider Internal Medicine
DX: R07.9 Chest pain, unspecified (principal); R42 Dizziness and giddiness; R51.9 Headache, unspecified; G89.29 Other chronic pain; M54.2 Cervicalgia; R06.02 Shortness of breath; I07.1 Rheumatic tricuspid insufficiency; K21.9 Gastro-esophageal reflux disease without esophagitis; R00.0 Tachycardia, unspecified; R11.0 Nausea; Z20.822 Contact with and (suspected) exposure to COVID-19; D64.9 Anemia, unspecified; R41.9 Unspecified symptoms and signs involving cognitive functions and awareness; F32.A Depression, unspecified; F10.90 Alcohol use, unspecified, uncomplicated; Z79.899 Other long term (current) drug therapy
CPT/HCPCS: 36415; 70450; 70551; 71046; 71275; 80053; 83690; 83735; 84443; 84484; 85025; 85380; 85610; 85730; 87636; 93005; 93306; 96361; 96372; 96374; 96375; 99285; A9270; C8929; G0378; J1650; J1885; J7030; Q9957; Q9967

== ENCOUNTER 2023-01-26 16:59 | Outpatient (RCR) | payer OTHER, SELFPAY ==
--- NOTE | 2023-01-26 17:50 | PTOPEVAL1 ---
Assessment and note entered by Thais Camacho, PT Evaluation Information Assessment Status Evaluation Diagnosis R shoulder pain Subjective Information Kaykay Collins reports in July 2018 she had a pop in her right shoulder that started intermittent pain. She had an injection and PT following the original injury which did help symptoms. She has had flare ups in pain over the years and usually rest helps it go away. She started have pain again about 1.5 months ago and it is not improving. She went to an printing specialist on 01/23/23 and underwent a x-ray that was normal. She is scheduled to have a MRI on 02/03. She was referred to PT as well. She is having pain from the right side of the neck that radiates to the shoulder blade and then down to the elbow. She is noting worse pain after typing all day, reaching her right arm out, washing her back, pulling on her shoes, and vacuuming. Reported Pain Level Pain Score 5: Self Report Assessment PT Clinical Summary Kaykay Collins presents with right shoulder pain. 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 She objectively demonstrates decreased and painful right shoulder flexion AROM, decreased right shoulder strength, and positive special tests consistent with impingement and rotator cuff tendon irritation. She will benefit from skilled PT to address these limitations. Plan of Care Interventions Electrical Stimulation,Hot Pack/Cold Pack,Manual Therapy,Neuro Re-education,Patient/Caregiver Educati,Therapeutic Activities,Therapeutic Exercise PT Services Indicated Yes Treatment Frequency and 2 times a week for 12 visits Duration These treatments will address the objective and functional deficits as defined above. The patient will be advanced safely and appropriately in order for the patient to progress towards his/her prior level of function. Additional exercises will be introduced and as well as a comprehensive home exercise program upon discharge, if needed, ?to ensure carryover of functional gains achieved in the clinic. This treatment plan has been reviewed and agreement upon by the patient.
--- NOTE | 2023-01-26 17:50 | OPREHPOC ---
Outpatient Therapy Plan of Care This is a Multidisciplinary Plan of Care that may contain components documented by all disciplines (PT, OT, and ST.) PT Problem 1 PT Problem #1 Knowledge Deficit PT Goal 1 Goal The patient will be independent in a home exercise program to continue after discharge from formal PT. Target Visit 12 PT Problem 2 PT Problem #2 Pain PT Goal 1 Goal The patient will report no greater than 1/10 right shoulder pain with work and household activities. Target Visit 12 PT Problem 3 PT Problem #3 Impaired Range of Motion PT Goal 1 Goal The patient will demonstrate improved right shoulder flexion AROM to 150 degrees to improve overhead reaching. Target Visit 12 PT Problem 4 PT Problem #4 Impaired Strength PT Goal 1 Goal The patient will demonstrate at least 4+/5 strength in the right shoulder flexors, internal rotators, and external rotators to improve lifting and pulling ability. Target Visit 12 PT Problem 5 PT Problem #5 Impaired Functional Mobil PT Goal 1 Goal The patient will score <20% self perceived disability per the Quick DASH questionnaire. Target Visit 12
--- NOTE | 2023-03-20 09:47 | PTOPREEVAL ---
Assessment and note entered by Agatha Vickers DPT Evaluation Information Assessment Status Re-evaluation Diagnosis R shoulder pain Onset 03/14/23 Subjective Information Patient reports shoulder injury in 2019. She was able to manage pain with cortisone and exercises until December 2022 when she started a leaf blower and felt a pop. She underwent surgery on 03/14/23 for R RTC and labral repair. She is in a abduction sling and returns to MD on 03/31/23. She reports difficulty with sleeping, dressing and bathing at this time. 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 Reported Pain Level Pain Score 4: Self Report Assessment PT Clinical Summary Patient presents this date with R shoulder pain s/ p R RTC repair on 03/14/23. Patient demonstrates decreased R shoulder ROM, decreased R shoulder strength and increased R shouder pain impairing her ability to dress, bathe, perform house hold tasks and type for work duties. Patient would benefit from skilled PT to address impairments and return to PLOF. Plan of Care Interventions Electrical Stimulation,Hot Pack/Cold Pack,Manual Therapy,Neuro Re-education,Patient/Caregiver Educati,Therapeutic Activities,Therapeutic Exercise PT Services Indicated Yes Treatment Frequency and 3 times a week for 12 visits Duration These treatments will address the objective and functional deficits as defined above. The patient will be advanced safely and appropriately in order for the patient to progress towards his/her prior level of function. Additional exercises will be introduced and as well as a comprehensive home exercise program upon discharge, if needed, ?to ensure carryover of functional gains achieved in the clinic. This treatment plan has been reviewed and agreement upon by the patient.
[2023-03-30 16:50] VITALS: BP_SYST 80
--- NOTE | 2023-03-30 17:29 | OPREHPOC ---
Outpatient Therapy Plan of Care This is a Multidisciplinary Plan of Care that may contain components documented by all disciplines (PT, OT, and ST.) PT Problem 1 PT Problem #1 Knowledge Deficit PT Goal 1 Goal The patient will be independent in a home exercise program to continue after discharge from formal PT. Target Visit 12 Progress Met PT Problem 2 PT Problem #2 Pain PT Goal 1 Goal The patient will report no greater than 1/10 right shoulder pain with work and household activities. Target Visit 12 PT Problem 3 PT Problem #3 Impaired Range of Motion PT Goal 1 Goal The patient will demonstrate improved right shoulder flexion AROM to 150 degrees to improve overhead reaching. Target Visit 12 PT Problem 4 PT Problem #4 Impaired Strength PT Goal 1 Goal The patient will demonstrate at least 4+/5 strength in the right shoulder flexors, internal rotators, and external rotators to improve lifting and pulling ability. Target Visit 12 PT Problem 5 PT Problem #5 Impaired Functional Mobil PT Goal 1 Goal The patient will score <20% self perceived disability per the Quick DASH questionnaire. Target Visit 12
--- NOTE | 2023-03-30 17:30 | PTOPPROGNS ---
Assessment and note entered by JT File, PT Evaluation Information Assessment Status Progress Diagnosis R shoulder pain Onset 03/14/23 Subjective Information patient reports hse feels good today. she reports she is still not comfortably sleeping due to having to sleep in a recliner, but reports the shoulder seems to be getting better every day. she follows up with the surgeon on 03/31/23. 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 lee presents to skilled PT for her 6th skilled therapy visit since surgery. she has met all rom goals for post op weeks 1-6 without pain. she will continue to focus on maintaining rom until week 6 when she is allowed to progress per her post operative protocol. Plan of Care Interventions Electrical Stimulation,Hot Pack/Cold Pack,Manual Therapy,Neuro Re-education,Patient/Caregiver Educati,Therapeutic Activities,Therapeutic Exercise PT Services Indicated Yes Treatment Frequency and continue skilled PT 3x weekly for 6 more visits Duration per her last re-evaluation. These treatments will address the objective and functional deficits as defined above. The patient will be advanced safely and appropriately in order for the patient to progress towards his/her prior level of function. Additional exercises will be introduced and as well as a comprehensive home exercise program upon discharge, if needed, ?to ensure carryover of functional gains achieved in the clinic. This treatment plan has been reviewed and agreement upon by the patient.
[2023-04-25 15:30] VITALS: BP_SYST 120
--- NOTE | 2023-04-25 17:21 | OPREHPOC ---
Outpatient Therapy Plan of Care This is a Multidisciplinary Plan of Care that may contain components documented by all disciplines (PT, OT, and ST.) PT Problem 1 PT Problem #1 Knowledge Deficit PT Goal 1 Goal The patient will be independent in a home exercise program to continue after discharge from formal PT. Target Visit 24 Progress Met Comment met to date, continue to progress PT Problem 2 PT Problem #2 Pain PT Goal 1 Goal The patient will report no greater than 1/10 right shoulder pain with work and household activities. Target Visit 36 Progress Not Met Comment continue PT Problem 3 PT Problem #3 Impaired Range of Motion PT Goal 1 Goal The patient will demonstrate improved right shoulder flexion AROM to 150 degrees to improve overhead reaching. Target Visit 36 Progress Not Met Comment continue PT Problem 4 PT Problem #4 Impaired Strength PT Goal 1 Goal The patient will demonstrate at least 4+/5 strength in the right shoulder flexors, internal rotators, and external rotators to improve lifting and pulling ability. Target Visit 36 Progress Not Met Comment continue PT Problem 5 PT Problem #5 Impaired Functional Mobil PT Goal 1 Goal The patient will score <20% self perceived disability per the Quick DASH questionnaire. Target Visit 36 Progress Not Met Comment continue
--- NOTE | 2023-04-25 17:21 | PTOPPROG ---
Assessment and note entered by Thais Camacho, PT Evaluation Information Assessment Status Progress Diagnosis s/p R RCR Onset 03/14/23 Subjective Information Kaykay Collins reports she started having an increase in right shoulder pain on 04/22/23. She denies an incident that led to increased pain but did ride in a car for a few hours for the first time since surgery to visit her daughter at [facility] . She also was up and doing more while visiting her daughter. She has noted more difficulty sleeping since the increase in pain the last few days. She describes the pain as achy and throbbing . She is still on antibiotics for the recent cellulitis she had in the right upper arm. She will have her white blood cell count taken again on 04/28/23 and will hopefully be able to discharge the antibiotics. Assessment PT Clinical Summary Kaykay Collins is 6 weeks s/p R rotator cuff repair performed on 03/14/23. She is reporting a recent increase in pain and difficulty sleeping after taking a long car ride to and from [facility] to visit her daughter. She objectively demonstrates steady progress in right shoulder PROM. She has not been receiving moist heat or soft tissue massage due the cellulitis infection she has been fighting. She has been PROM only for therapeutic exercise thus far but was progresssed to AAROM this date. She continues to demonstrate decreased right shoulder passive and active ROM as well as decreased right shoulder and scapular strength. She will continue to benefit from skilled PT to address these limitations within her post op protocol. Plan of Care Interventions Hot Pack/Cold Pack,Patient/Caregiver Educati, Therapeutic Exercise PT Services Indicated Yes Treatment Frequency and continue 3 times a week for 12 visits Duration These treatments will address the objective and functional deficits as defined above. The patient will be advanced safely and appropriately in order for the patient to progress towards his/her prior level of function. Additional exercises will be introduced and as well as a comprehensive home exercise program upon discharge, if needed, ?to ensure carryover of functional gains achieved in the clinic. This treatment plan has been reviewed and agreement upon by the patient.
--- NOTE | 2023-08-30 09:16 | PCPTNOTE ---
08/30/23: Called patient to follow up and see how she is doing. She reports she had an irrigation and debridement of her right shoulder on 07/24/23 and the surgeon removed all of her previous anchors and sutures. He collected 5 samples during this and had the cultured. The cultures all came back negative. She has not had any cellulitis since have the procedure on 07/24/23. She will have a revision of her right RCR with a shoulder specialist from [facility] on 09/18/23 and will not be able to have PT, even PROM, for 6 weeks.
== END 2023-06-06 20:00 | disposition home or self-care (01) ==
LOC: CHSPT 16:59
PROVIDERS: Visit Provider Orthopaedic Surgery
DX: M25.511 Pain in right shoulder (principal); G89.29 Other chronic pain; M75.21 Bicipital tendinitis, right shoulder; M25.311 Other instability, right shoulder; M62.838 Other muscle spasm; M89.8X1 Other specified disorders of bone, shoulder
CPT/HCPCS: 97014; 97110; 97140; 97150; 97161; 97164; G0283

== ENCOUNTER 2023-02-06 06:44 | Outpatient (CLI) | payer OTHER, SELFPAY ==
--- NOTE | ~2023-02-06 | MR_ITS ---
EXAMINATION: MR shoulder RT wo con DATE: 02/06/2023 07:34 INDICATION: Chronic right shoulder pain. TECHNIQUE: Magnetic resonance imaging (MRI) of the right shoulder was performed without intravenous c ontrast. Sequences included axial PD-weighted FS FSE, coronal oblique PD-weighted FS FSE and T2-weigh tessa FS FSE, and sagittal oblique T2-weighted FS FSE and T1-weighted FSE. COMPARISON: None. FINDINGS: Coracoacromial arch: The acromion undersurface is flat in morphology (type I). There is mild acromioclavicular joint osteo arthritis. There is mild subacromial/subdeltoid bursitis. Rotator cuff: There is a bursal-sided, partial-thickness tear of supraspinatus tendon at its distal attachment juan uring 5 mm anterior to posterior by 3 mm proximal to distal by 70% tendon thickness. There is moderat e supraspinatus tendinopathy and mild infraspinatus tendinopathy. Teres minor tendon is normal. Subsc apularis tendon is normal. There is no fatty atrophy of the rotator cuff muscle bellies. Biceps tendon and glenoid labrum: Biceps tendon is in bicipital groove. Intra-articular biceps tendon is normal. The glenoid labrum is normal. Fluid: There is no glenohumeral joint effusion. Bones/cartilage: Glenoid cartilage is normal. Humeral head cartilage is normal. IMPRESSION: 1. Bursal-sided, partial-thickness tear of supraspinatus tendon. Reviewed, dictated and finalized at location A.
[2023-02-06 08:04] LABS: Basophils Percent Auto 0.4 % (0.2-1.2); Eosinophils Absolute Auto 0.1 K/mm3 (0-0.3); Eosinophils Percent Auto 1.3 % (0-4.4); Hematocrit 43.1 % (37.0-47.0); Hemoglobin 13.5 g/dL (12.0-15.0); Immature Granulocyte Absolute 0.02 K/mm3 (0.00-0.031); Immature Granulocyte Percent A 0.3 % (0-0.5); Lymphocytes Absolute Auto 2.89 K/mm3 (0.9-3.2); Lymphocytes Percent Auto 40.9 % (18.3-44.2); Mean Corpuscular HGB Conc 31.3 g/dl (32-36); Mean Corpuscular Hemoglobin 26.3 pg (26-34); Mean Platelet Volume 9.6 fl (7.4-10.4); Monocytes Absolute Auto 0.6 K/mm3 (0.1-0.6); Monocytes Percent Auto 8.1 % (2.6-8.5); Neutrophils Absolute Auto 3.5 K/mm3 (1.3-6.7); Platelet Count Result 302 k/mm3 (150-375); Red Blood Count 5.13 M/mm3 (4.2-5.4); Red Cell Distribution Width 13.2 % (11.5-14.5); White Blood Count 7.1 K/mm3 (4.5-10.0)
[2023-02-06 08:12] LABS: Alanine Aminotransferase 22 U/L (6-35); Albumin Level 4.6 g/dL (3.5-5.1); Alkaline Phosphatase 76 U/L (38-126); Anion Gap 10 mmol/L (8-16); Aspartate Amino Transferase 27 U/L (14-36); Bilirubin,Total 0.8 mg/dL (0.2-1.3); Blood Urea Nitrogen 15 mg/dL (7-17); Carbon Dioxide 25 mmol/L (22-30); Chloride 105 mmol/L (98-107); Estimated Glomerular Filt Rate > 60; Glucose 98 mg/dL (65-110); Potassium 3.8 mmol/L (3.4-5.0); Sodium 140 mmol/L (137-145)
[2023-02-06 08:13] LABS: Rheumatoid Factor < 12.0 IU/ML (<12)
[2023-02-06 09:09] LABS: Erythrocyte Sedimentation Rate 1 mm/hr (0-20)
== END 2023-02-06 06:45 | disposition home or self-care (01) ==
PROVIDERS: PCP Nurse Practitioner Family; Referring Provider Nurse Practitioner Family; Visit Provider Physician Assistant
DX: G89.29 Other chronic pain (principal); M25.50 Pain in unspecified joint; M75.101 Unspecified rotator cuff tear or rupture of right shoulder, not specified as traumatic
CPT/HCPCS: 36415; 73221; 80053; 85025; 85652; 86038; 86430

== ENCOUNTER 2023-02-09 07:14 | Outpatient (CLI) | payer OTHER, SELFPAY ==
--- NOTE | ~2023-02-09 | MM_ITS ---
EXAMINATION: MM screening danyel BI w tunde HISTORY: Screening mammogram TECHNIQUE: Craniocaudal and mediolateral oblique 3-D tomosynthesis images were obtained and synthetic 2-D images were generated. CAD analysis was submitted and interpreted. COMPARISON: 12/21/2021 bilateral screening mammogram 11/10/2020 bilateral diagnostic mammogram and bilateral complete breast ultrasound examination 10/21/2020 bilateral screening mammogram 08/28/2019 bilateral screening mammogram BREAST PARENCHYMAL COMPOSITION: The breasts are extremely dense, which lowers the sensitivity of mamm ography. FINDINGS: Occasional bilateral punctate benign-appearing microcalcifications. Approximately 1.3 cm circumscribed low-density mass is noted in the posterior central right breast (C C Tomosynthesis image 28/59), with halo sign, consistent with benign process, most likely a benign cy st. Multiple bilateral breast cysts were documented on previous bilateral ultrasound examination of . There is no evidence of suspicious mass, calcification, or architectural distortion to suggest malign ghada in either breast. There has been no suspicious interval change. IMPRESSION: 1. No mammographic evidence of malignancy. 2. Recommend routine screening mammography in one year. BI-RADS Category 2: Benign Reviewed, dictated and finalized at location A.
== END 2023-02-09 07:15 | disposition home or self-care (01) ==
LOC: CHSIMG 07:15
PROVIDERS: PCP Nurse Practitioner Family; Visit Provider Obstetrics & Gynecology
DX: Z12.31 Encounter for screening mammogram for malignant neoplasm of breast (principal)
CPT/HCPCS: 77063; 77067

== ENCOUNTER 2023-03-09 09:34 | Outpatient (CLI) | payer OTHER, SELFPAY ==
--- NOTE | ~2023-03-09 | XR_ITS ---
Clinical Indication: Preprocedural evaluation/clearance PA and lateral views of the chest: Comparison: 07/25/2022 Findings: The lungs are clear, without evidence of focal consolidation or pleural effusion. Cardiome diastinal silhouette is within normal limits. Bones and soft tissues are unremarkable. Impression: Normal chest. Reviewed, dictated and finalized at [facility]. Impression: Normal chest.
[2023-03-09 09:48] LABS: Basophils Absolute Auto 0.04 K/mm3 (0.00-0.10); Basophils Percent Auto 0.5 % (0.0-1.0); Eosinophils Absolute Auto 0.07 K/mm3 (0.02-0.50); Eosinophils Percent Auto 0.9 % (1.0-6.0); Hematocrit 45.4 % (35.0-49.0); Hemoglobin 14.3 g/dL (12.0-15.0); Immature Granulocyte Absolute 0.02 K/mm3 (0.00-0.00); Immature Granulocyte Percent A 0.3 % (0.0-0.0); Lymphocytes Absolute Auto 2.77 K/mm3 (1.10-4.50); Lymphocytes Percent Auto 36.4 % (18.0-42.0); Mean Corpuscular HGB Conc 31.5 g/dL (32.0-36.0); Mean Corpuscular Hemoglobin 26.7 pg (27.0-31.0); Mean Corpuscular Volume 84.9 fL (78.0-102.0); Mean Platelet Volume 9.4 fl (9.2-11.8); Monocytes Absolute Auto 0.46 K/mm3 (0.10-0.90); Neutrophils Absolute Auto 4.3 K/mm3 (1.7-7.2); Neutrophils Percent Auto 55.9 % (50.0-70.0); Platelet Count Result 337 K/mm3 (150-420); Red Blood Count 5.35 M/mm3 (4.20-5.40); White Blood Count 7.6 K/mm3 (4.8-10.8)
--- NOTE | 2023-03-09 09:49 | ECG_ITS ---
Measurements Intervals [place] Rate: 94 P: 68 [place]: 147 QRS: 64 QRSD: 80 T: 63 QT: 328 QTc: 412 Interpretive Statements SINUS RHYTHM BORDERLINE ST ABNORMALITY- INF/LAT LEADS BASELINE ARTIFACT- V4 BORDERLINE ECG COMPARED TO ECG 07/25/2022 09:36:[address] PRESENT [address] (T WAVE) DEVIATION NOW PRESENT Electronically Signed On 03-09-2023 10:16:46 CDT by Lauri Enriquez D.O.
[2023-03-09 09:51] LABS: Appearance Urine Clear (Clear); Bilirubin Urine Negative (Negative); Blood Urine 2+ (Negative); Color Urine Light Yellow (Yellow); Glucose Urine UA Negative (Negative); Ketones Urine Negative (Negative); Leukocyte Esterase Ur Negative LEU/UL (Negative); Nitrate Urine Negative (Negative); Protein Urine Negative (Negative); Specific Grav Ur 1.015 (1.010-1.020)
[2023-03-09 09:57] LABS: Add Urine Microscopic? YES; Bacteria Urine 2+ /hpf; Squamous Epithelial Cell Urine Moderate /hpf (Few); WBC Urine None seen /hpf (0-3)
[2023-03-09 10:18] LABS: Alanine Aminotransferase 20 U/L (14-59); Albumin Level 4.6 g/dL (3.4-5.0); Alkaline Phosphatase 91 U/L (46-116); Anion Gap 11 mmol/L (8-16); Aspartate Amino Transferase 10 U/L (15-37); Bilirubin,Total 0.4 mg/dL (0.00-1.00); Blood Urea Nitrogen 16 mg/dL (7-18); Calcium 9.7 mg/dL (8.5-10.1); Carbon Dioxide 27 mmol/L (21-32); Chloride 104 mmol/L (98-108); Estimated Glomerular Filt Rate > 60; Glucose 91 mg/dL (70-99); Osmolality Calculated 295 mOsm/kg (285-295); Potassium 4.2 mmol/L (3.5-5.1); Sodium 142 mmol/L (136-145); Total Protein 7.4 g/dL (6.4-8.2)
== END 2023-03-09 09:35 | disposition home or self-care (01) ==
LOC: CHSLAB 09:35
PROVIDERS: PCP Nurse Practitioner Family; Visit Provider Nurse Practitioner Family
DX: Z01.818 Encounter for other preprocedural examination (principal)
CPT/HCPCS: 36415; 71046; 80053; 81001; 85025; 93005

== ENCOUNTER 2023-03-31 11:33 | Outpatient (CLI) | payer OTHER, SELFPAY ==
[2023-03-31 12:00] LABS: Add Urine Microscopic? NO; Appearance Urine Clear (Clear); Bilirubin Urine Negative (Negative); Blood Urine Negative (Negative); Color Urine Light Yellow (Yellow); Glucose Urine UA Negative (Negative); Ketones Urine Negative (Negative); Leukocyte Esterase Ur Negative LEU/UL (Negative); Nitrate Urine Negative (Negative); Protein Urine Negative (Negative); Urobilinogen Urine 0.2 mg/dL (0.2-1.0); pH Urine 5.5 (5.0-8.0)
== END 2023-03-31 11:34 | disposition home or self-care (01) ==
LOC: CHSLAB 11:34
PROVIDERS: PCP Nurse Practitioner Family; Visit Provider Nurse Practitioner Family
DX: R31.9 Hematuria, unspecified (principal)
CPT/HCPCS: 81003

== ENCOUNTER 2023-04-04 16:27 | Outpatient (CLI) | payer OTHER, SELFPAY ==
[2023-04-04 16:45] LABS: Basophils Absolute Auto 0.08 K/mm3 (0.00-0.10); Basophils Percent Auto 0.7 % (0.0-1.0); Eosinophils Absolute Auto 0.06 K/mm3 (0.02-0.50); Eosinophils Percent Auto 0.5 % (1.0-6.0); Hematocrit 44.9 % (35.0-49.0); Hemoglobin 14.2 g/dL (12.0-15.0); Immature Granulocyte Absolute 0.06 K/mm3 (0.00-0.00); Immature Granulocyte Percent A 0.5 % (0.0-0.0); Lymphocytes Absolute Auto 4.28 K/mm3 (1.10-4.50); Lymphocytes Percent Auto 36.9 % (18.0-42.0); Mean Corpuscular HGB Conc 31.6 g/dL (32.0-36.0); Mean Corpuscular Hemoglobin 26.9 pg (27.0-31.0); Mean Platelet Volume 9.2 fl (9.2-11.8); Monocytes Absolute Auto 0.92 K/mm3 (0.10-0.90); Monocytes Percent Auto 7.9 % (2.0-11.0); Neutrophils Absolute Auto 6.2 K/mm3 (1.7-7.2); Neutrophils Percent Auto 53.5 % (50.0-70.0); Platelet Count Result 414 K/mm3 (150-420); Red Blood Count 5.28 M/mm3 (4.20-5.40); Red Cell Distribution Width 13.5 % (11.6-14.4); White Blood Count 11.6 K/mm3 (4.8-10.8)
[2023-04-04 17:20] LABS: Alanine Aminotransferase 18 U/L (14-59); Albumin Level 4.4 g/dL (3.4-5.0); Alkaline Phosphatase 96 U/L (46-116); Anion Gap 13 mmol/L (8-16); Aspartate Amino Transferase 18 U/L (15-37); Bilirubin,Total 0.4 mg/dL (0.00-1.00); Blood Urea Nitrogen 18 mg/dL (7-18); Calcium 9.5 mg/dL (8.5-10.1); Carbon Dioxide 27 mmol/L (21-32); Chloride 102 mmol/L (98-108); Estimated Glomerular Filt Rate > 60; Glucose 91 mg/dL (70-99); Osmolality Calculated 295 mOsm/kg (285-295); Sodium 142 mmol/L (136-145); Total Protein 7.2 g/dL (6.4-8.2)
[2023-04-04 17:44] LABS: Erythrocyte Sedimentation Rate 4 mm/hr (0-15)
[2023-04-05 11:22] LABS: CRP < 0.5 mg/dL (0.0-0.9)
== END 2023-04-04 16:28 | disposition home or self-care (01) ==
LOC: CHSLAB 16:32
PROVIDERS: PCP Nurse Practitioner Family; Visit Provider Physician Assistant
DX: Z47.89 Encounter for other orthopedic aftercare (principal); Z98.890 Other specified postprocedural states
CPT/HCPCS: 36415; 80053; 85025; 85652; 86140

== ENCOUNTER 2023-04-18 09:36 | Outpatient (CLI) | payer OTHER, SELFPAY ==
--- NOTE | ~2023-04-18 | XR_ITS ---
EXAMINATION: XR abdomen/kub 1V DATE: 04/18/2023 10:06 INDICATION: Low pelvic pain. TECHNIQUE: A supine view of the abdomen on 2 radiographs was obtained. COMPARISON: None. FINDINGS: There is a large volume of stool in the colon with mild distention of the transverse and de scending colon. The small bowel is normal in caliber. Surgical clips in the right upper quadrant are likely from cholecystectomy. There is a total left hip arthroplasty. IMPRESSION: 1. Large volume of stool in the colon with mild distention of the transverse and descending colon. Reviewed, dictated and finalized at location E. IMPRESSION: 1. Large volume of stool in the colon with mild distention of the transverse an d descending colon.
== END 2023-04-18 09:37 | disposition home or self-care (01) ==
LOC: CHSIMG 09:37
PROVIDERS: PCP Nurse Practitioner Family; Visit Provider Nurse Practitioner Family
DX: R10.84 Generalized abdominal pain (principal)
CPT/HCPCS: 74018

== ENCOUNTER 2023-04-27 16:30 | Outpatient (RCR) | payer OTHER, SELFPAY ==
[2023-05-09 13:00] VITALS: BP_SYST 106
--- NOTE | 2023-05-09 13:52 | OPREHPOC ---
Outpatient Therapy Plan of Care This is a Multidisciplinary Plan of Care that may contain components documented by all disciplines (PT, OT, and ST.)
--- NOTE | 2023-05-09 13:52 | PTOPPROG ---
Assessment and note entered by JT File, PT Evaluation Information Assessment Status Progress Diagnosis R RTC repair Onset 03/14/23 Subjective Information patient reports she continues to have redness and pain around the shoulder. she reports she has not been able to see infectious disease yet due to still being on antibiotics. she reports they have done and MRI and found an infection in a muscle around the shoulder. she reports she has a follow up with the surgeon tomorrow. she is anxious to get back to rehab progression and get back to work [employer]. she reports she has been doing exercises at home when she is able, but at times the pain from infection is too high. 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 she presents with only mild tightening of the R shoulder flexion and abduction after not being in skilled PT for a week. however, she is most limited today by pain and end feel of the shoulder still feels empty/soft. she would benefit from continued skilled PT with progression in rom and strength as allowed per her post operative protocol. she was educated in light shoulder isometrics and supine/semi-reclined/sitting active shoulder flexion today. Plan of Care Interventions Manual Therapy,Neuro Re-education,Patient/ Caregiver Educati,Therapeutic Activities, Therapeutic Exercise PT Services Indicated Yes Treatment Frequency and continue skilled PT 3x weekly for 9 more visits Duration per current POC. These treatments will address the objective and functional deficits as defined above. The patient will be advanced safely and appropriately in order for the patient to progress towards his/her prior level of function. Additional exercises will be introduced and as well as a comprehensive home exercise program upon discharge, if needed, ?to ensure carryover of functional gains achieved in the clinic. This treatment plan has been reviewed and agreement upon by the patient.
--- NOTE | 2023-06-06 16:15 | OPREHPOC ---
Outpatient Therapy Plan of Care This is a Multidisciplinary Plan of Care that may contain components documented by all disciplines (PT, OT, and ST.)
--- NOTE | 2023-06-06 16:15 | PTOPREEVAL ---
Assessment and note entered by JT File, PT Evaluation Information Assessment Status Re-evaluation Diagnosis R RTC repair Onset 03/14/23 Subjective Information patient reports aside from the possible allergic reactions to the anchors, her shoulder feels good. she reports she is ready to return to work, and hopeful to get cleared to return next week. Reported Pain Level Pain Score 3: Self Report Assessment PT Clinical Summary mrs. lee presents to skilled PT for her 24th skilled PT visit after R RTC repair. she has been complicated by issues with possible allergic reaction to the anchors used in surgery, but overall has made great progress in shoulder rom/ strength. she has full R shoulder flexion and ER rom today, and good strength of the R shoulder to continue exercise progression on her own. she will hold therapy at this time to await instruction on plan of care regarding her possible allergy to the anchors. Plan of Care Interventions Manual Therapy,Neuro Re-education,Patient/ Caregiver Educati,Therapeutic Activities, Therapeutic Exercise PT Services Indicated Yes Treatment Frequency and hold therapy at this time. follow up with MD and Duration report back with plans for possible allergy to anchors. These treatments will address the objective and functional deficits as defined above. The patient will be advanced safely and appropriately in order for the patient to progress towards his/her prior level of function. Additional exercises will be introduced and as well as a comprehensive home exercise program upon discharge, if needed, ?to ensure carryover of functional gains achieved in the clinic. This treatment plan has been reviewed and agreement upon by the patient.
== END 2023-07-26 23:59 | disposition home or self-care (01) ==
LOC: CHSPT 16:30
PROVIDERS: Visit Provider Physician Assistant
DX: M25.511 Pain in right shoulder (principal)
CPT/HCPCS: 97110

== ENCOUNTER 2023-05-09 09:34 | Outpatient (CLI) | payer OTHER, SELFPAY ==
--- NOTE | ~2023-05-09 | MMUS_ITS ---
EXAMINATION: MM diagnostic danyel RT w tunde, US breast RT complete HISTORY: Reported incidental right breast finding on outside MRI shoulder examination TECHNIQUE: Full field and spot ML, MLO and CC 3-D tomosynthesis images of the right breast were perfo rmed and synthetic 2-D images were generated. CAD analysis was submitted and interpreted. High resolu tion complete right breast ultrasound examination including all 4 quadrants and subareolar area was p erformed. COMPARISON: 02/05/2023, 12/21/2021 bilateral screening mammogram BREAST PARENCHYMAL COMPOSITION: The right breast is extremely dense, which lowers the sensitivity of mammography. FINDINGS: MAMMOGRAPHIC FINDINGS: Circumscribed rounded 9 mm opacity is noted in the inner mid to upper right breast posteriorly (MLO T omosynthesis image 58/77). Additional masses may be obscured by the extremely dense stroma. For this reason, complete breast ultrasound examination was performed. No suspicious mass, architectural distortion, malignant calcification, skin thickening or retraction is evident. ULTRASOUND: Multiple simple and complicated cysts are noted, circumscribed, with through transmission posterior e nhancement, the largest measuring up to 14.6 mm, situated at 1:00 7 cm from the nipple. No suspicious mass or shadowing of the right breast is detected. IMPRESSION: 1. Multiple benign cysts; no mammographic or sonographic evidence of malignancy 2. Routine annual mammographic screening is recommended, with supplemental ultrasound as clinically a ppropriate BI-RADS Category 2: Benign finding(s). Reviewed, dictated and finalized at location A. ADMINISTRATIVE ASSISTANT IMPRESSION: 1. Multiple benign cysts; no mammographic or sonographic evidence of malignancy 2. Routine annual mammographic screening is recommended, with supplemental ultr asound as clinically appropriate BI-RADS Category 2: Benign finding(s).
== END 2023-05-09 09:35 | disposition home or self-care (01) ==
LOC: CHSIMG 09:35
PROVIDERS: PCP Nurse Practitioner Family; Visit Provider Obstetrics & Gynecology
DX: N64.9 Disorder of breast, unspecified (principal); R92.8 Other abnormal and inconclusive findings on diagnostic imaging of breast
CPT/HCPCS: 76641; 77061; 77065; G0279

== ENCOUNTER 2023-06-22 10:12 | Outpatient (NON) | payer OTHER, SELFPAY ==
[2023-06-22 10:19] LABS: Bilirubin Urine 1+ (Negative); Blood Urine Trace-Intact (Negative); Glucose Urine UA 1+ (Negative); Ketones Urine Negative (Negative); Leukocyte Esterase Ur 2+ LEU/UL (Negative); Nitrate Urine Positive (Negative); Protein Urine 1+ (Negative); Specific Grav Ur 1.015 (1.010-1.020); Urobilinogen Urine >=8.0 mg/dL (0.2-1.0)
[2023-06-22 10:24] LABS: Add Urine Microscopic? YES; Color Urine Dark Orange (Yellow)
[2023-06-22 10:25] LABS: Appearance Urine Slightly Cloudy (Clear); Bacteria Urine 1+ /hpf; RBC Urine 0-2 /hpf (0-2); Squamous Epithelial Cell Urine Few /hpf (Few); WBC Urine 21-30 /hpf (0-3)
== END 2023-06-22 10:13 | disposition home or self-care (01) ==
LOC: CHSLAB 10:13
PROVIDERS: Visit Provider Nurse Practitioner Family
DX: R31.9 Hematuria, unspecified (principal)
CPT/HCPCS: 81001; 87077; 87086; 87088; 87186

== ENCOUNTER 2023-08-10 09:56 | Outpatient (CLI) | payer OTHER, SELFPAY ==
[2023-08-10 10:16] LABS: Basophils Absolute Auto 0.07 K/mm3 (0.00-0.10); Basophils Percent Auto 0.7 % (0.0-1.0); Eosinophils Absolute Auto 0.21 K/mm3 (0.02-0.50); Eosinophils Percent Auto 2.1 % (1.0-6.0); Hematocrit 44.7 % (35.0-49.0); Hemoglobin 14.3 g/dL (12.0-15.0); Immature Granulocyte Absolute 0.03 K/mm3 (0.00-0.00); Immature Granulocyte Percent A 0.3 % (0.0-0.0); Lymphocytes Absolute Auto 3.43 K/mm3 (1.10-4.50); Lymphocytes Percent Auto 34.1 % (18.0-42.0); Mean Corpuscular Hemoglobin 26.1 pg (27.0-31.0); Mean Corpuscular Volume 81.6 fL (78.0-102.0); Mean Platelet Volume 9.2 fl (9.2-11.8); Monocytes Absolute Auto 0.61 K/mm3 (0.10-0.90); Monocytes Percent Auto 6.1 % (2.0-11.0); Neutrophils Absolute Auto 5.7 K/mm3 (1.7-7.2); Neutrophils Percent Auto 56.7 % (50.0-70.0); Platelet Count Result 349 K/mm3 (150-420); Red Blood Count 5.48 M/mm3 (4.20-5.40); Red Cell Distribution Width 12.5 % (11.6-14.4); White Blood Count 10.1 K/mm3 (4.8-10.8)
[2023-08-10 11:22] LABS: Alanine Aminotransferase 25 U/L (14-59); Albumin Level 4.5 g/dL (3.4-5.0); Alkaline Phosphatase 87 U/L (46-116); Amylase 24 U/L (25-115); Anion Gap 13 mmol/L (8-16); Aspartate Amino Transferase 16 U/L (15-37); Bilirubin,Total 0.6 mg/dL (0.00-1.00); Blood Urea Nitrogen 12 mg/dL (7-18); Carbon Dioxide 25 mmol/L (21-32); Chloride 102 mmol/L (98-108); Estimated Glomerular Filt Rate > 60; Glucose 82 mg/dL (70-99); Lipase 31 U/L (16-77); Osmolality Calculated 288 mOsm/kg (285-295); Potassium 4.2 mmol/L (3.5-5.1); Sodium 140 mmol/L (136-145); Total Protein 7.4 g/dL (6.4-8.2)
== END 2023-08-10 09:57 | disposition home or self-care (01) ==
LOC: CHSLAB 09:58
PROVIDERS: PCP Nurse Practitioner Family; Visit Provider Nurse Practitioner Family
DX: R11.2 Nausea with vomiting, unspecified (principal)
CPT/HCPCS: 36415; 80053; 82150; 83690; 85025

== ENCOUNTER 2023-08-11 10:20 | Outpatient (CLI) | payer OTHER, SELFPAY ==
[2023-08-11 15:30] LABS: Toxigenic C. Diff NEGATIVE (NEGATIVE)
[2023-08-18 22:18] LABS: Calprotectin, Stool 234 mcg/g; Pancreatic Elastase, Stool >500 mcg/g
== END 2023-08-11 10:21 | disposition home or self-care (01) ==
LOC: CHSLAB 10:22
PROVIDERS: PCP Nurse Practitioner Family; Visit Provider Nurse Practitioner Family
DX: R11.2 Nausea with vomiting, unspecified (principal)
CPT/HCPCS: 82653; 83993; 87045; 87177; 87209; 87269; 87427; 87449; 87493

== ENCOUNTER 2023-09-06 09:35 | Outpatient (CLI) | payer OTHER, SELFPAY ==
[2023-09-06 09:48] LABS: Appearance Urine Clear (Clear); Bilirubin Urine Negative (Negative); Blood Urine Negative (Negative); Glucose Urine UA Negative (Negative); Ketones Urine Negative (Negative); Leukocyte Esterase Ur Negative LEU/UL (Negative); Nitrate Urine Negative (Negative); Protein Urine Negative (Negative); pH Urine 6.5 (5.0-8.0)
[2023-09-06 10:03] LABS: Add Urine Microscopic? NO; Color Urine Dark Yellow (Yellow)
== END 2023-09-06 09:36 | disposition home or self-care (01) ==
LOC: CHSLAB 09:36
PROVIDERS: PCP Nurse Practitioner Family; Visit Provider Nurse Practitioner Family
DX: R31.9 Hematuria, unspecified (principal)
CPT/HCPCS: 81003

== ENCOUNTER 2023-10-02 11:20 | Outpatient (CLI) | payer OTHER, SELFPAY ==
--- NOTE | ~2023-10-02 | XR_ITS ---
XR abdomen/kub 1V 10/02/2023 11:30 INDICATION: Constipation TECHNIQUE: KUB COMPARISON: None FINDINGS: Bowel gas pattern is normal. There is no evidence of free air, mass, organomegaly, ascites or obstruction. No abnormal calculi are seen. The bones appear intact. There is a left total hip a rthroplasty. There are cholecystectomy clips. IMPRESSION: 1: No acute abdominal abnormality identified. Reviewed, dictated and finalized at location B.
== END 2023-10-02 11:21 | disposition home or self-care (01) ==
LOC: ANHIMG 11:22
PROVIDERS: PCP Nurse Practitioner Family; Visit Provider Nurse Practitioner
DX: K59.00 Constipation, unspecified (principal); R39.198 Other difficulties with micturition
CPT/HCPCS: 74018

== ENCOUNTER 2023-10-25 07:09 | Day surgery (SDC) | payer OTHER, SELFPAY ==
[2023-10-12 09:51] VITALS: BMI 24.5
[2023-10-12 13:47] VITALS: BMI 23.8
--- NOTE | 2023-10-25 08:19 | WPDANESEPPF ---
Anes - Initial Pre Proc Eval Procedure: Operation Date: 10/25/23 09:30 Proposed Procedures p Esophagogastroduodenoscopy - Braydon Sequeira MD s Diagnostic Colonoscopy - Braydon Sequeira MD Date/Time: 10/25/23 08:19 Surgeon: Braydon Sequeira MD Pre Op Diagnosis: Nausea, ABN Weight Loss, ABD Pain Patient Data Age: 48 Gender: F Height: 1.68 m Weight: 67 kg Allergies Allergy/AdvReac Type Severity Reaction Status Date / Time latex Allergy Unknown Dyspnea / Verified 10/25/23 08:18 SOB Home Medications Medication Instructions Recorded Confirmed Type famotidine 40 mg tablet 40 mg PO QHS 04/10/23 10/25/23 History ondansetron 4 mg disintegrating 4 mg PO Q8H PRN nausea and 08/10/23 10/25/23 Rx tablet vomiting #14 tabs hyoscyamine sulfate 0.125 mg tablet 0.125 mg PO QID PRN dyspepsia #60 09/21/23 10/25/23 Rx tabs pantoprazole 40 mg tablet,delayed 40 mg PO BID #30 tabs 10/02/23 10/25/23 Rx release atomoxetine 25 mg capsule 25 mg PO DAILY 10/12/23 10/25/23 History cyclobenzaprine 10 mg tablet 10 mg PO TID PRN muscle spasms 10/12/23 10/25/23 History quetiapine 25 mg tablet 25 mg PO HS PRN Insomnia 10/12/23 10/25/23 History Patient hx anesthesia problems: none Family hx anesthesia problems: none Results Review: All pre-operative results and documents have been reviewed as part of the pre-operative evaluation. 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 Depression Depression Dyssynergia Generalized abdominal pain Migraines Ulnar tunnel syndrome Vaginal delivery Surgical History Surgical History Fusion of toes History of bilateral salpingectomy History of cholecystectomy History of hip replacement History of laparoscopic-assisted vaginal hysterectomy Hx of tonsillectomy Family History Family History Father Diabetes mellitus Family history of hypercholesterolemia Hypertension Malignant neoplasm of prostate Cerebrovascular accident Mother Diabetes mellitus Family history of hypercholesterolemia Hypertension Patient's mother is in good health Cerebrovascular accident Social History Social History Social History: The patient is and she has 2 children. She occasionally drinks a glass a wine. 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 She occasionally drinks a glass of wine. Her is the power family law attorney for healthcare Code status full code Smoking status: Never smoker Alcohol intake: current Alcohol use details: rarely Substance use: never Substance use type: does not use Lack of Transportation: No Lack of Food: Never True Current Housing: I Have Housing Concerned About Future Housing: No Difficulty Paying Gas/Electric Bills: No Difficulty Paying for Meds: No Currently Unemployed: No Education: Associate Degree Difficulty w/ Childcare or Family Care: No Living arrangements: with family Occupation/Education: occupation Gender identity (if verbalized by the patient): Female Sexual Orientation (if Verbalized by the Patient): Straight or Heterosexual Spiritual care concerns: No Anes - Eval Final PreProcedure Day of Procedure 10/25/23 08:19 Patient weight: normal Heart: regular rate and rhythm Lungs: clear to auscultation Airway: Mallampati scale class II Neurological: alert and oriented Last oral intake: >/= 8 hours ASA classification: II Emergent: no Anesthetic plan: proceed Anesthesia type and monitoring: general GIVS and standard monitoring Results Review: All pre-operative results and documents have been reviewed as part of the pre-operative evaluation. Informed Consent: The patient's anesthetic plan and its attendant risk
[2023-10-25 08:23] VITALS: BMI 24.3
[2023-10-25 08:34] VITALS: BP 111/63; PULSE 95; RESP 18; TEMP 36.7; O2SAT 100
--- NOTE | 2023-10-25 08:42 | WPDHPUPDATE1 ---
History and Physical Update Update Date/Time: 10/25/23 08:42 History and Physical has been reviewed, including an updated exam of the patient. There are NO changes in the patient's condition. Risks, benefits, and alternatives have been discussed and questions answered. Patient agrees to proceed with procedure.
[2023-10-25] MEDS: LACTATED RINGERS 1,000 ML 150 ML IV CONT (09:01)
[2023-10-25 10:02] VITALS: BP 99/71; PULSE 90; RESP 16; O2SAT 100
[2023-10-25 10:12] VITALS: BP 100/56; PULSE 87; RESP 16; O2SAT 100
--- NOTE | 2023-10-25 10:16 | WPDANESPN ---
Anes - Prog Note Post-Op Date/Time: 10/25/23 10:16 Cardiovascular status: normal Respiratory status: normal Airway patency: baseline Mental status: baseline Post-Op hydration status: normal Vital Signs: Last Vital Signs Temp 36.7 C 10/25/23 08:34 Pulse 87 10/25/23 10:12 Resp 16 10/25/23 10:12 BP 100/56 L 10/25/23 10:12 Pulse Ox 100 10/25/23 10:12 O2 Del Method Room Air 10/25/23 10:12 Pain Score (VAS): 0/10 I/O: Intake & Output 10/24/23 10/25/23 10/25/23 23:59 07:59 15:59 Intake Total 750 Balance 750 Patient Feedback: Patient satisfied with anesthetic care.
[2023-10-25 10:21] VITALS: BP 100/70; PULSE 73; RESP 16; O2SAT 100
== END 2023-10-25 10:34 | disposition home or self-care (01) ==
PROVIDERS: PCP Nurse Practitioner Family; Visit Provider Internal Medicine Gastroenterology
PROC: 0DJ08ZZ Inspection of Upper Intestinal Tract, Via Natural or Artificial Opening Endoscopic (ICD-10-PCS; CPT 43235; principal; 2023-10-25 09:30)
PROC: 0DJD8ZZ Inspection of Lower Intestinal Tract, Via Natural or Artificial Opening Endoscopic (ICD-10-PCS; CPT 45378; 2023-10-25 09:30)
DX: Z12.11 Encounter for screening for malignant neoplasm of colon (principal); K64.8 Other hemorrhoids; R11.0 Nausea; R63.4 Abnormal weight loss
CPT/HCPCS: 45378; 43239

== ENCOUNTER 2023-11-06 16:35 | Outpatient (RCR) | payer OTHER, SELFPAY ==
--- NOTE | 2023-11-06 17:16 | PTOPEVAL1 ---
Assessment and note entered by Payam Mayo Evaluation Information Assessment Status Evaluation Diagnosis s/p right rotator cuff revision Onset 09/18/23 Subjective Information Pt. reports she underwent right rotator cuff revision on 09/18/23. She reports that she had an anchor that became loose and developed an infection. She reports she was in a sling until last week. She is not to lift anything bigger than a soda can and no reaching overhead. Pt. reports that is minimal, and it does come and go. She reports she seems to be improving everyday. She states that her goal is to regain normal strength and mobility. Reported Pain Level Pain Score 3: Self Report Assessment PT Clinical Summary Pt. is a 48 year old female who enters the clinic s/p right rotator cuff revision. She is currently limited to passive and active assisted movements of the right shoulder joint. She currently presents with right shoulder weakness and impaired ROM. Continued skilled PT is indicated in order to improve these areas to allow the pt. to be able to complete all IADL's without limitation at the right shoulder. Plan of Care Interventions Electrical Stimulation,Hot Pack/Cold Pack,Manual Therapy,Neuro Re-education,Patient/Caregiver Educati,Therapeutic Activities,Therapeutic Exercise PT Services Indicated Yes Treatment Frequency and 2x/week x 10 visits Duration These treatments will address the objective and functional deficits as defined above. The patient will be advanced safely and appropriately in order for the patient to progress towards his/her prior level of function. Additional exercises will be introduced and as well as a comprehensive home exercise program upon discharge, if needed, ?to ensure carryover of functional gains achieved in the clinic. This treatment plan has been reviewed and agreement upon by the patient.
--- NOTE | 2023-11-06 17:19 | OPREHPOC ---
Outpatient Therapy Plan of Care This is a Multidisciplinary Plan of Care that may contain components documented by all disciplines (PT, OT, and ST.) PT Problem 1 PT Problem #1 Knowledge Deficit PT Goal 1 Goal Pt. will be independent with a HEP addressing mobility per protocol. Target Visit 2 PT Problem 2 PT Problem #2 Impaired Range of Motion PT Goal 1 Goal -Pt. will achieve 160 degrees passive right shoulder flexion and 90 degrees passive right shoulder ER -Pt. will be appropriate to advance to active ROM activities above shoulder height. Target Visit 10
--- NOTE | 2023-11-27 17:21 | PCPTNOTE ---
On 11/27/23, the student, JOE Marie, provided care and completed [facility] documentation on this patient. I have reviewed the student's documentation and agree with the findings. Payam Mayo, MPT
[2023-12-14 07:30] VITALS: BP_SYST 170
--- NOTE | 2023-12-14 08:48 | OPREHPOC ---
Outpatient Therapy Plan of Care This is a Multidisciplinary Plan of Care that may contain components documented by all disciplines (PT, OT, and ST.) PT Problem 1 PT Problem #1 Knowledge Deficit PT Goal 1 Goal Pt. will be independent with a HEP addressing mobility per protocol. Target Visit 2 Progress Met PT Goal 2 Goal New Goal: Patient will be independent in a HEP for right shoulder strength. Target Visit 12 PT Problem 2 PT Problem #2 Impaired Range of Motion PT Goal 1 Goal -Pt. will achieve 160 degrees passive right shoulder flexion and 90 degrees passive right shoulder ER -met for flexion, not met for ER -Pt. will be appropriate to advance to active ROM activities above shoulder height. -met Target Visit 12 Progress Partially Met Comment Continue PT Goal 2 Goal New Goal: 1. Pt to demonstrate 160 degrees active right shoulder flexion to improve overhead reaching. 2. Pt to demonstrate functional ER to T1 to improve bathing/grooming ability. 3. Pt to demonstrate functional IR to T12 to improve bathing/dressing ability. Target Visit 18 PT Problem 3 PT Problem #3 Impaired Strength PT Goal 1 Goal The patient will demonstrate at least 4/5 right shoulder strength to improve ability to lift and carry for daily tasks. Target Visit 24 PT Problem 4 PT Problem #4 Impaired Functional Mobil PT Goal 1 Goal 1. The patient will demonstrate 25% or less self perceived disability per the Quick DASH questionnaire. 2. Patient will be able to lift 5# overhead for 10 repetitions to return to putting away dishes in overhead cabinets. Target Visit 24
--- NOTE | 2023-12-14 08:48 | PTOPPROG ---
Assessment and note entered by Thais Camacho, PT Evaluation Information Assessment Status Evaluation Diagnosis s/p right rotator cuff revision Onset 09/18/23 Subjective Information Kaykay Collins reports overall her right shoulder is progressing and it feels much better than it did after her first surgery. She is still having pain at rest and increased with more activity like typing and writing. She is still sleeping in a recliner due to difficulty getting comfortable. She saw her surgeon on 12/13/23 and was released to start light strengthening working up to 5lbs over the next 8 weeks. She notes she has been using her right arm to wash her hair and brush her teeth but has not been lifting any weight with it. She reports she feels weak in the right arm. Assessment PT Clinical Summary Kaykay Colilns has completed 9 skilled PT visits since undergoing a right rotator cuff revision on 09/18/23. She is reporting her right shoulder is getting better overall but she continues to have pain at rest and increased with use. She has difficulty getting comfortable at night as well. She went to her surgeon on 12/13/23 and was released to begin strengthening with a limit of 5# . She objectively demonstrates improved right shoulder passive and active ROM. She continues to demonstrate decreased right shoulder AROM, decreased right shoulder strength, and decreased functional abilities. She will continue to benefit from skilled PT to further address these ongoing limitations and improve her function. Plan of Care Interventions Electrical Stimulation,Hot Pack/Cold Pack,Manual Therapy,Neuro Re-education,Patient/Caregiver Educati,Therapeutic Activities,Therapeutic Exercise PT Services Indicated Yes Treatment Frequency and 2 times a week for 16 visits Duration These treatments will address the objective and functional deficits as defined above. The patient will be advanced safely and appropriately in order for the patient to progress towards his/her prior level of function. Additional exercises will be introduced and as well as a comprehensive home exercise program upon discharge, if needed, ?to ensure carryover of functional gains achieved in the clinic. This treatment plan has been reviewed and agreement upon by the patient.
--- NOTE | 2024-01-05 15:36 | PCPTNOTE ---
Patient called & cancelled scheduled appointment this date due to [having to work ]
--- NOTE | 2024-01-08 07:23 | PCPTNOTE ---
Patient called & cancelled scheduled appointment this date due to [having to work ]
--- NOTE | 2024-01-15 17:23 | PCPTNOTE ---
I reviewed the License Pending Therapist's documentation and agree with the findings.
--- NOTE | 2024-01-19 14:45 | PCPTNOTE ---
On 01/19/24, the license pending PARTS RUNNER, [Brandee Worthy], provided care and completed [facility] documentation on this patient. I have reviewed the license pending PARTS RUNNER's documentation and agree with the findings.
--- NOTE | 2024-01-22 17:47 | PCPTNOTE ---
I reviewed the License Pending Therapist's documentation and agree with the findings.
--- NOTE | 2024-02-02 16:31 | PCPTNOTE ---
Patient called & cancelled scheduled appointment this date due to [having to work ]
== END 2024-01-29 13:42 | disposition still patient (30) ==
LOC: CHSPT 16:35
DX: M75.101 Unspecified rotator cuff tear or rupture of right shoulder, not specified as traumatic (principal)
CPT/HCPCS: 97014; 97110; 97150; 97161; G0283

== ENCOUNTER 2024-02-05 13:45 | Outpatient (RCR) | payer OTHER, SELFPAY ==
[2024-02-05 13:43] VITALS: BP_SYST 170
--- NOTE | 2024-02-05 14:29 | PTOPPROG ---
Assessment and note entered by Payam Mayo Evaluation Information Assessment Status Progress Diagnosis s/p right rotator cuff revision Onset 09/18/23 Subjective Information Pt. reports that she has been progressing well as of recently. She states that she still has pain following treatment, but it is less intense. Her biggest complication is remaining weakness with described overhead movement and ER. She reports she is still restricted to lifting 5# and has not returned to her normal household activities, such as house cleaning. She reports that her goal remains to improve her strength and return to all normal activities that she did prior to injury. Assessment PT Clinical Summary Pt. continues to demonstrate improving strength and mobility in the right shoulder. She has not active or passive restrictions in regards to right shoulder ROM. 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 At this time continued treatment is indicated further progressing patient strength to assist her in being able to return to all normal IADL's without limitation. Plan of Care Interventions Electrical Stimulation,Hot Pack/Cold Pack,Manual Therapy,Neuro Re-education,Patient/Caregiver Educati,Therapeutic Activities,Therapeutic Exercise PT Services Indicated Yes Treatment Frequency and 1x/week x 4 visits Duration These treatments will address the objective and functional deficits as defined above. The patient will be advanced safely and appropriately in order for the patient to progress towards his/her prior level of function. Additional exercises will be introduced and as well as a comprehensive home exercise program upon discharge, if needed, ?to ensure carryover of functional gains achieved in the clinic. This treatment plan has been reviewed and agreement upon by the patient.
--- NOTE | 2024-02-23 16:26 | PCPTNOTE ---
Patient called & cancelled scheduled appointment this date due to [illness ]
--- NOTE | 2024-03-29 09:57 | PCPTNOTE ---
Cancelled session. Busy at work and can't make it in.
== END 2024-03-18 09:12 | disposition home or self-care (01) ==
LOC: CHSPT 13:45
DX: M75.101 Unspecified rotator cuff tear or rupture of right shoulder, not specified as traumatic (principal)
CPT/HCPCS: 97110

== ENCOUNTER 2024-02-20 12:58 | Outpatient (CLI) | payer OTHER, SELFPAY ==
[2024-02-22 06:08] LABS: FSH 29.5 mIU/mL
[2024-02-24 17:32] LABS: Estrogen 414 pg/mL
[2024-02-24 22:18] LABS: Testosterone Free 1.4 pg/mL (0.1-6.4); Testosterone Total 14 ng/dL (2-45)
== END 2024-02-20 12:59 | disposition home or self-care (01) ==
PROVIDERS: PCP Nurse Practitioner Family; Visit Provider Obstetrics & Gynecology
DX: N95.1 Menopausal and female climacteric states (principal)
CPT/HCPCS: 36415; 82672; 83001; 84402; 84403

== ENCOUNTER 2024-02-26 07:48 | Outpatient (CLI) | payer OTHER, SELFPAY ==
--- NOTE | ~2024-02-26 | MM_ITS ---
EXAMINATION: MM screening danyel BI w tunde HISTORY: Screening mammogram TECHNIQUE: Craniocaudal and mediolateral oblique 3-D tomosynthesis images were obtained and synthetic 2-D images were generated. CAD analysis was submitted and interpreted. COMPARISON: 05/09/2023, 02/09/2023, 12/21/2021, 10/21/2020 BREAST PARENCHYMAL COMPOSITION:Dense: The breasts are extremely dense, which lowers the sensitivity o f mammography. FINDINGS: No suspicious mass, calcification, or architectural distortion are identified in either elbert ast to suggest malignancy. There has been no suspicious interval change. IMPRESSION: No mammographic evidence of malignancy. Recommend routine screening mammography in one year. BI-RADS Category 1: Negative Reviewed, dictated and finalized at location .
== END 2024-02-26 07:49 | disposition home or self-care (01) ==
LOC: CHSIMG 07:49
PROVIDERS: PCP Nurse Practitioner Family; Visit Provider Obstetrics & Gynecology
DX: Z12.31 Encounter for screening mammogram for malignant neoplasm of breast (principal)
CPT/HCPCS: 77063; 77067

== ENCOUNTER 2024-08-08 14:45 | Outpatient (CLI) | payer OTHER, SELFPAY ==
--- NOTE | ~2024-08-08 | CT_ITS ---
EXAMINATION: CT abdomen pelvis w con DATE: 08/08/2024 15:20 INDICATION: Right mid abdominal pain. Nausea. Diarrhea. TECHNIQUE: Computed tomography (CT) of the abdomen and pelvis was performed with 100 mL Omnipaque 350 intravenous contrast. Automated exposure control and iterative reconstruction technique were employe d. The dose-length product was 567.81 mGy-cm. COMPARISON: None. FINDINGS: The visualized portions of the lung bases are clear without pneumonia or pleural effusion. There are small bilateral posterior diaphragmatic hernias containing fat. The heart size is normal. N o pericardial effusion. The liver is normal. There are changes of cholecystectomy. The spleen, pancre as, adrenal glands, and left kidney are normal. There are cysts in right kidney measuring up to 6 mm. There are no dilated loops of bowel. The appendix is normal. There are no pathologically enlarged ly mph nodes. There is no free intraperitoneal fluid. There is a total left hip arthroplasty. There is s evere lower lumbar spondylosis. IMPRESSION: 1. No etiology for the patient's symptoms. Reviewed, dictated and finalized at location A. MAKER
--- OUTSIDE RECORDS SUMMARY | 2024-08-08 14:50 | XMS_ITS | Clinical Summary ---
Author Organization [facility] Physician Office Building [address] [place] [address] Care Team Providers Care Cementing Machine Operator Name Role Phone Joanie Hinton Unavailable [phone] Sarita Gage NP Primary Care Provider [phone] Miguel Saucedo Unavailable [phone] Abraham Steinberg MD Unavailable [phone] Allergies Active Allergy Reactions Criticality Noted Date Comments Hydrocodone-Acetaminophen Itching,Nausea & Vomiting Medium 06/23/2004 Latex Anaphylaxis,Swelling ,Palpit ations,Rash High 01/17/2006 Zolpidem Anxiety,Mental statu s changes,Palpitations Low 01/22/2020 Medications famotidine (PEPCID) 20 mg tablet Take 2 tablets (40 mg total) by mouth nightly as needed for heartburn 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 8 Active cyclobenzaprine (FLEXERIL) 10 mg tablet Take 1 tablet (10 mg total) by mouth 2 (two) times a day as needed for muscle spasms 1 Active atomoxetine (STRATTERA) 25 mg capsuleIndications :Attention-Deficit Hyperactivity Disorder Take 1 capsule (25 mg total) by mouth every morning 3 Active QUEtiapine (SEROquel) 25 mg tabletIndications: sleep Take 1 tablet (25 mg total) by mouth nightly 3 Active ibuprofen 200 mg tab/capIndications :Anti-inflammatory Take 2 tablet/capsul e (400 mg total) by mouth every 6 (six) hours as needed for pain Active pantoprazole DR (PROTONIX) 40 mg EC tabletIndications: Treatment of Non-Bleeding Gastric Disorder Take 1 tablet (40 mg total) by mouth every morning Active acetaminophen (TYLENOL) 500 mg tablet Take 2 tablets (1,000 mg total) by mouth every 6 (six) hours 60 tablet 1 4 Active ondansetron ODT (ZOFRAN-ODT) 4 mg disintegrating tabletIndications: Prevention of Post-Operative Nausea and Vomiting Take 1 tablet (4 mg total) by mouth every 8 (eight) hours as needed for nausea or vomiting 20 tablet 4 Active Active Problems Problem Noted Date Diagnosed Date S/P right rotator cuff repair 06/29/2023 Pyogenic arthritis of right shoulder region 06/19 Cellulitis of right upper extremity 04/05/2023 Arthritis of right acromioclavicular joint 03/01 Biceps tendinitis on right 03/01/2023 Tear of right rotator cuff 03/01/2023 Impingement syndrome of right shoulder 3 Lumbar radiculopathy 03/08/2022 Insomnia secondary to chronic pain 03/08/2022 Sacroiliitis 03/08/2022 DDD (degenerative disc disease), lumbar 03/05/20 Degenerative lumbar spinal stenosis 03/05/2022 Trochanteric bursitis, left hip 08/11/2020 Aftercare following left hip joint replacement s urgery 08/10/2020 Non-intractable vomiting 04/12/2019 Overview (04/12/2019): Added automatically from request for surgery [id number] Other constipation 04/11/2019 Non-intractable vomiting with nausea 04/11/2019 Gastroesophageal reflux disease without esophagi tis 04/11/2019 Resolved Problems Problem Noted Date Diagnosed Date Resolved Date Primary osteoarthritis of left hip 04/12/2020 08/10/2020 Overview (04/12/2020): Added automatically from request for surgery [id number] Surgical History Surgery Date Site/Laterality Comments CHOLECYSTECTOMY 06/19/2004 - 06/18/2005 HYSTERECTOMY 06/19/2017 - 06/18/2018 partial TONSILLECTOMY 06/19/2002 - 06/18/2003 TOE FUSION 06/19/2012 - 06/18/2013 Left Left great toe fusion ULNAR NERVE TRANSPOSITION 06/19/2008 - 06/18/2009 Left FL FLUORO GUIDED INJECTION HIP LEFT 01/27/2020 Left TOTAL HIP ARTHROPLASTY 04/29/2020 Left ESOPHAGOGASTRODUODENOSCOPY 04/17/2019 ROTATOR CUFF REPAIR 03/14/2023 Right SHOULDER SURGERY 07/24/2023 Right debridement COLONOSCOPY Medical History Medical History Date Comments Constipation 02/22/2019 [facility] rect Admit 02/22/19-02/24/19 Anxiety Fatigue Headache Mood swing GERD (gastroesophageal reflux disease) Anemia 1976 Arthritis 2009 Brain concussion 1989 Dysmenorrhea 2017 Migraines 2011 Non-intractable vomiting with nausea 04/11/2019 Family History Medical History Relation Name Comments Alcohol abuse Brother Niranjan Depression Daughter Olya Alcohol abuse Father Uri COPD Father Uri Cancer Father Uri Depression Father Uri Diabetes Father Uri Heart attack Father Uri Heart disease Father Uri Hyperlipidemia Father Uri Hypertension Father Uri Prostate cancer Father Uri Stroke Father Uri Cancer Maternal Grandfather Juan Ramon Lung cancer Maternal Grandfather Juan Ramon Heart attack Maternal Grandmother Levels Heart disease Maternal Grandmother Levels Alcohol abuse Mother Marshal Sies Depression Mother Marshal Sies Diabetes Mother Marshal Sies Heart attack Mother Marshal Sies Heart disease Mother Marshal Sies Hyperlipidemia Mother Marshal Sies Hypertension Mother Marshal Sies Stroke Mother Marshal Sies Alcohol abuse Mother's Sister Merna Diabetes Paternal Grandmother [place] Depression Sister Pradeep Anesthesia problems Neg Hx Relation Name Status Comments Brother Niranjan Daughter Olya Father Uri Maternal Grandfather Juan Ramon Maternal Grandmother Levels Mother Marshal Sies Alive Mother's Sister Merna Paternal Grandmother [place] Sister Pradeep Social History Tobacco Use Types Packs/Day Years Used Date Smoking Tobacco: Never Smokeless Tobacco: Never Alcohol Use Standard Drinks/Week Comments Yes 0 (1 standard drink = 0.6 oz pur e alcohol) occasional C Utilities Answer Date Recorded In the past 12 months has th e electric, gas, oil, or water company threatened to shut off services in your home? No 04/06/2023 Humiliation, Afraid, Rape, and Kick questionnair e Answer Date Recorded Within the last year, have y ou been afraid of your partner or ex-partner? No 04/06/2023 Within the last year, have y ou been humiliated or emotionally abused in other ways by your partner or ex-partner? No Within the last year, have y ou been kicked, hit, slapped, or otherwise physically hurt by your partner or ex-partner? No 04/06/2023 Within the last year, have y ou been raped or forced to have any kind of sexual activity by your partner or ex-partner? No 04/06/2023 Social Connection and Isolat ion Panel [NHANES] Answer Date Recorded In a typical week, how many times do you talk on the phone with family, friends, or neighbors? More than three times a week 04/06/2023 How often do you get togethe r with friends or relatives? Once a week 04/06/2023 How often do you attend chur ch or baptist services? Never 04/06/2023 Do you belong to any clubs o r organizations such as mu-ism groups, unions, fraternal or athletic groups, or school groups? No 04/06/2023 How often do you attend meet ings of the clubs or organizations you belong to? Never 04/06/2023 Are you , , di vorced, , never , or living with a partner? 04/06/2023 AUDIT-C Answer Date Recorded Q1: How often do you have a drink containing alc ohol? Monthly or less 09/18/2023 Q2: How many drinks containi ng alcohol do you have on a typical day when you are drinking? 1 or 2 09/18/2023 Q3: How often do you have si x or more drinks on one occasion? Never 09/18/2023 Overall Financial Resource Strain (CARDIA) Answe r Date Recorded How hard is it for you to pa y for the very basics like food, housing, medical care, and heating? Not hard at all 04/06/2023 PHQ-2 Answer Date Recorded PHQ-2 Total Score (If total score is 3 or more points, staff should administer the PHQ-9) 3 04/06/2023 [facility] Occupational Stress Questionnaire Answer Date Recorded Do you feel stress - tense, restless, nervous, or anxious, or unable to sleep at night because your mind is troubled all the time - these days? Rather much 04/06/2023 Exercise Vital Sign Answer Date Recorde d On average, how many days pe r week do you engage in moderate to strenuous exercise (like a brisk walk)? 7 days 04/06/2023 On average, how many minutes do you engage in exercise at this level? 30 min 04/06/2023 Hunger Vital Sign Answer Date Recorded Within the past 12 months, y ou worried that your food would run out before you got the money to buy more. Never true 04/06/20 23 Within the past 12 months, t he food you bought just didn't last and you didn't have money to get more. Never true 04/06/2023 PRAPARE - Transportation Answer Date Re corded In the past 12 months, has l ack of transportation kept you from medical appointments or from getting medications? No 03/19 In the past 12 months, has l ack of transportation kept you from meetings, work, or from getting things needed for daily living? No 04/06/2023 Housing Stability Vital Sign Answer Pedro Luis e Recorded In the last 12 months, was t here a time when you were not able to pay the mortgage or rent on time? No 04/06/2023 In the last 12 months, how many places have you lived? 1 04/06/2023 In the last 12 months, was t here a time when you did not have a steady place to sleep or slept in a detention (including now)? No 04/06/2023 Personal Safety Answer Date Recorded Have you ever been in or are you currently in a harmful physical or emotional relationship or is someone making you feel afraid or unsafe? 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 Gender Identity Female 01/21/2020 9:55 AM CDT Sexual Orientation Straight 04/10/2019 9: 33 AM CDT Obstetrics History Last Filed Vital Signs Vital Sign Reading Time Taken Comments Blood Pressure 111/54 09/18/2023 1:21 PM CDT Pulse 84 09/18/2023 1:21 PM CDT Temperature 36.3 C (97.3 F) 09/18/2023 12:45 PM CDT Respiratory Rate 23 09/18/2023 1:21 PM CDT Oxygen Saturation 100% 09/18/2023 1:21 PM CDT Inhaled Oxygen Concentration - - Weight 71.7 kg (158 lb) 08/21/2023 3:55 PM STOCKROOM WORKER Height 167.6 cm (5' 6 ) 08/21/2023 3:55 PM STOCKROOM WORKER Body Mass Index 25.5 08/21/2023 3:55 PM STOCKROOM WORKER Plan of Treatment Health Maintenance Due Date Last Done Comments Breast Cancer Screening-Mammogram 1973 Colon Cancer Screening-Colonoscopy 1973 Hepatitis C Screening 1973 DTaP/Tdap/Td Vaccine (1 - Tdap) 1984 Hepatitis B Screening 09/14/1991 Regular Well Visit/Exam 18-64 09/14/1991 Zoster Vaccine (1 of 2) 09/14/2023 Influenza Vaccine (#1) 2024 03/28/2016, 2013 Depression Screening 04/06/2024 04/06/2023, 03/08/2022, 03/08/2022, Additional history exists Pneumococcal vaccine <65 Aged Out No longer eligible based on patient's age to complete this topic Medical Devices Implanted Type Area Cross Country/Track And Field Coach Device Identifier Shelf Expiration Date Model / Serial / Lot Depuy [employer] [id number] [place] 54mm 36mm Hip Neutral Liner Acetabular Altrx Sterile Latex Free - [id number] Implanted:Qty: 1 on 04/29/2020 by Juan Ramon Barriga MD at [facility] Left: Hip [employer] 01/16/2025 [id number] / / [id number] [employer] [id number] [place] 54mm Sector Hip Shell Acetabular Gription Sterile Latex Free - [id number] Implanted:Qty: 1 on 04/29/2020 by Juan Ramon Barriga MD at [facility] Left: Hip [employer] 03/18/2030 [id number] / / [id number] Depuy [employer] [id number] Actis 99mm Collar Hip 2 06/01 High Offset Taper Stem Femoral - [id number] Implanted:Qty: 1 on 04/29/2020 by Juan Ramon Barriga MD at [facility] Left: Hip [employer] 12/16/2029 [id number] / / [id number] [employer] [id number] Articul/[place] 36mm Cementless Hip +5mm 12/14 Taper Head Femoral Latex Free - [id number] Implanted:Qty: 1 on 04/29/2020 by Juan Ramon Barriga MD at [facility] Left: Hip [employer] 01/16/2025 [id number] / / [id number] [employer] Suture [place] Fiberwire Biocomp Fibertak 1.3x1.7mm Lf Ar-3652tsp - [id number] Implanted:Qty: 1 on 03/14/2023 by Marcelino Ernandez MD at [facility] Right: Shoulder [employer] 12/17/2027 AR-3652TSP / / [id number] [employer] Suture [place] Fiberwire Knotless Biocomp Fibertak Lf Ar-3652sp - [id number] Implanted:Qty: 1 on 03/14/2023 by Marcelino Ernandez MD at [facility] Right: Shoulder [employer] 12/17/2027 AR-3652SP / / [id number] [employer] Swivelock C 4.75mm 19.1mm Closed Eyelet Vent [place] Suture Ar-2324bcc - [id number] Implanted:Qty: 1 on 03/14/2023 by Marcelino Ernandez MD at [facility] Right: Shoulder [employer] 11/16/2026 AR-2324BCC / / [id number] [employer] Swivelock C 4.75mm 19.1mm Closed Eyelet Vent [place] Suture Ar-2324bcc - [id number] Implanted:Qty: 1 on 03/14/2023 by Marcelino Ernandez MD at [facility] Right: Shoulder [employer] 11/16/2026 AR-2324BCC / / [id number] [employer] Suture [place] Double Loaded Knotless Fibertak 2.6mm Ar-3632sp - [id number] Implanted:Qty: 1 on 09/18/2023 by Javan Villalobos MD at [facility] Right: Shoulder [employer] [id number] 03/18/2028 AR-3632SP / / [id number] [employer] Swivelock C 4.75mm 19.1mm Closed Eyelet Vent [place] Suture Ar-2324bcc - [id number] Implanted:Qty: 1 on 09/18/2023 by Javan Villalobos MD at [facility] Right: Shoulder [employer] [id number] 06/18/2027 AR-2324BCC / / [id number] [employer] Swivelock C 4.75mm 19.1mm Closed Eyelet Vent [place] Suture Ar-2324bcc - [id number] Implanted:Qty: 1 on 09/18/2023 by Javan Villalobos MD at [facility] Right: Shoulder [employer] [id number] 06/18/2027 AR-2324BCC / / [id number] [employer] Corkscrew Suturetape 5.5mm 14.7mm Bioabsorbable Full Thread 1.3mm Ar-1927bct - [id number] Implanted:Qty: 1 on 09/18/2023 by Javan Villalobos MD at [facility] Right: Shoulder [employer] [id number] 01/16/2025 AR-1927BCT / / [id number] [employer] Suture [place] Double Loaded Knotless Fibertak 2.6mm Ar-3632sp - [id number] Implanted:Qty: 1 on 09/18/2023 by Javan Villalobos MD at [facility] Right: Shoulder [employer] [id number] 03/18/2028 AR-3632SP / / [id number] Insurance [facility] CHOICE PLUS [facility] CHOICE PLUS [facility] CHOICE PLUS [place] [id number] Advance Directives For more information, please contact: [phone] * Full Code (Latest Code Status on File) Date Activated Date Inactivated Comments 04/05/2023 7:38 PM 04/08/2023 3:43 PM * Full Code Date Activated Date Inactivated Comments 04/29/2020 11:33 AM 04/30/2020 10:01 PM Care Teams Cementing Machine Operator Relationship Specialty Start Date End Date Sarita Gage NP [address] [place] [address] PCP - General Nurse Practitioner 02/24/23 Joanie Hinton PA Orthopedic Surgery 04/30/20 Miguel Saucedo PA [address] [place] [address] [address] [place] [address] Physician Information Coder Orthopedic Surgery 03/14/23 Abraham Steinberg MD [address] [place] [address] [address] [place] [address] Consulting Physician Infectious Diseases 04/08/23
--- OUTSIDE RECORDS SUMMARY | 2024-08-08 14:50 | XMS_ITS | Encounter Summary ---
Author Organization [facility] Healthcare Address [address] [place] [address] Care Team Providers Care Cargo Mate Name Role Phone Gutierrez Hernández MD Primary Care Provider [phone] Joanie Hinton Unavailable [phone] Sarita Gage NP Primary Care Provider [phone] Miguel Saucedo Unavailable [phone] Abraham Steinberg MD Unavailable [phone]- [phone] Encounter Details Date Type Department Care Team (Late st Contact Info) Description 01/24/2020 Telephone [facility] [address] [place] [id number] [address] Caban, [place] Social History Tobacco Use Types Packs/Day Years Used Date Smoking Tobacco: Never Smokeless Tobacco: Never Alcohol Use Standard Drinks/Week Comments Yes 0 (1 standard drink = 0.6 oz pur e alcohol) occasional PHQ-2 Answer Date Recorded PHQ-2 Score 0 04/11/2019 Comments Unknown Sex and Gender Information Value Date Recorded Sex Assigned at Not on file 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 Gender Identity Female 01/21/2020 9:55 AM CDT Sexual Orientation Straight 04/10/2019 9: 33 AM CDT documented as of this encounter Plan of Treatment Not on file documented as of this encounter Visit Diagnoses Not on filedocumented in this encounter Care Teams Cargo Mate Relationship Specialty Start Date End Date Gutierrez Hernández MD [address] [place] [address] PCP - General Family Medicine 03/18/19 02/23/23 Sarita Gage MANAGER SQL [address] [place] [address] PCP - General Nurse Practitioner 02/24/23 Jonaie Hinton PA [address] [place] [address] Orthopedic Surgery 04/30/20 Miguel Saucedo PA [address] [facility] [facility] [facility] [address] [place] [address] Physician Treasury Accountant Orthopedic Surgery 03/14/23 Abraham Steinberg MD [address] [facility] [facility] [place] [address] Consulting Physician Infectious Diseases 04/08/23 documented as of this encounter
--- OUTSIDE RECORDS SUMMARY | 2024-08-08 14:50 | XMS_ITS | Patient Health Summary ---
Author Organization [facility] Address [address] [place] [address] Care Team Providers Care Wrapper Sizer Name Role Phone Sarita Gage APRN-SECURITY SITE SUPERVISOR Primary Care Provid er Note from [facility],non-owned Affiliates and Associated Physician Practices is amultiple site organization consisting of ambulatory clinics and hospital sitesin [place], [place], [place] and [place]. This disclosure is being madepursuant to the Care Everywhere program and may not contain all information available regarding this patient. Last updated 18.[facility] Allergies * Ambien Cr(Nausea and/or Vomiting,Palpitations,Other) -Medium Criticality * Hydrocodone-Acetaminophen(Rash,Itching,Nausea and/or Vomiting,Swelling,Unknown ) -Medium Criticality * Latex(Anaphylaxis,Swelling,Palpitations,Unknown) -High Criticality * Zolpidem(Other,Psychiatric,Palpitations) -Medium Criticality Medications * Be aware that medications may not be up to date on this document. Alwaysverify current medications with the patient. * traMADol (Ultram) 50 MG tablet(Started 06/23/2023) Take 1 (one) tablet by mouth every 4 hours as needed * QUEtiapine (SEROquel) 25 MG tablet(Started 06/01/2023) Take 1 (one) tablet by mouth at bedtime * phenazopyridine (Pyridium) 200 MG tablet(Started 06/22/2023) Take 3 (three) tablets by mouth once daily * omeprazole (PriLOSEC) 20 MG capsule Take 2 (two) capsules by mouth once daily * naloxone HCl (Narcan) 4 MG/0.1ML nasal spray(Started 03/14/2023) * doxycycline hyclate (Vibramycin) 100 MG capsule(Started 06/11/2023) Take 1 (one) capsule by mouth 2 times daily * cyclobenzaprine (Flexeril) 10 MG tablet(Started 06/01/2023) Take 1 (one) tablet by mouth 3 times daily * Bacillus Coagulans-Inulin (Probiotic) 1-250 BILLION-MG CAPS Take 1 capsule by mouth once daily * atomoxetine (Strattera) 25 MG capsule(Started 06/01/2023) Take 1 (one) capsule by mouth once daily Active Problems Problem Noted Date Diagnosed Date Anxiety 06/26/2023 06/26/2023 Arthritis of right acromioclavicular joint 03/0106/26/2023 Biceps tendinitis on right 03/01/202306/26 Lumbar radiculopathy 03/08/2022 06/26/2023 DDD (degenerative disc disease), lumbar 03/05/2006/26/2023 Gastroesophageal reflux disease without esophagi tis 04/11/2019 06/26/2023 Social History Tobacco Use Types Packs/Day Years Used Date Smoking Tobacco: Never Smokeless Tobacco: Never Alcohol Use Standard Drinks/Week Comments Yes 0 (1 standard drink = 0.6 oz pur e alcohol) Sex and Gender Information Value Date Recorded Sex Assigned at Not on file Gender Identity Not on file Sexual Orientation Not on file Last Filed Vital Signs Vital Sign Reading Time Taken Comments Blood Pressure 124/64 06/26/2023 10:27 AM PATTERNMAKER Pulse 99 06/26/2023 10:27 AM PATTERNMAKER Temperature 36.1 C (97 F) 06/26/2023 10:27 AM PATTERNMAKER Respiratory Rate - - Oxygen Saturation 96% 06/26/2023 10:27 AM PATTERNMAKER Inhaled Oxygen Concentration - - Weight 81.8 kg (180 lb 6.4 oz) 06/26/2023 10:27 AM PATTERNMAKER Height 167.6 cm (5' 6 ) 06/26/2023 10:27 AM PATTERNMAKER Body Mass Index 29.12 06/26/2023 10:27 AM PATTERNMAKER Procedures * RHEUMATOID FACTOR BLOOD QUANTITATIVE(Performed 06/26/2023) Performed for Polyarthralgia * CYCLIC CITRULLINATED PEPTIDE(CCP) AB IGG(Performed 06/26/2023) Performed for Polyarthralgia * XR WRIST LEFT 3VW OR MORE(Performed 06/26/2023) Performed for Polyarthralgia * XR HAND RIGHT 3VW OR MORE(Performed 06/26/2023) Performed for Polyarthralgia * XR HAND LEFT 3VW OR MORE(Performed 06/26/2023) Performed for Polyarthralgia * XR WRIST RIGHT 3VW OR MORE(Performed 06/26/2023) Performed for Polyarthralgia Results * RHEUMATOID FACTOR BLOOD QUANTITATIVE (06/26/2023 11:51 AM PATTERNMAKER) Rheumatoid Factor <15 <30 IU/mL 06/26/2023 12:28 PM PATTERNMAKER [facility] Rheumatoid Factor Screen Negative Negative 06/26/2023 12:28 PM PATTERNMAKER [facility] Blood BLOOD SPECIMEN / Unknown Lab Venipuncture / Unknown 06/26/2023 11:51 AM PATTERNMAKER 06/26/2023 12:01 PM PATTERNMAKER Bhavya Horvath MD LAB - CHEMISTRY [facility] [address] [address], [facility] [phone] * CYCLIC CITRULLINATED PEPTIDE(CCP) AB IGG (06/26/2023 11:51 AM PATTERNMAKER) Pathologist [facility] CCP Antibody IgG 0.5 <5.0 U/mL 06/26/2023 12:59 PM PATTERNMAKER [facility] Blood BLOOD SPECIMEN / Unknown Lab Venipuncture / Unknown 06/26/2023 11:51 AM PATTERNMAKER 06/26/2023 12:01 PM PATTERNMAKER Bhavya Horvath MD LAB - CHEMISTRY [facility] [address] [address], [facility] [phone] * XR HAND RIGHT 3VW OR MORE (06/26/2023 11:24 AM PATTERNMAKER) Anatomical Region Laterality Modality Wrist / Hand Radiographic Roshni ging 06/26/2023 11:2 9 AM PATTERNMAKER Impressions 06/26/2023 11:30 AM PATTERNMAKER IMPRESSION: No significant arthritis. > Interpreting Provider: Ab Tapia MD on 06/26/2023 11:30 AM Narrative 06/26/2023 11:30 AM PATTERNMAKER PROCEDURE: XR HAND RIGHT 3VW OR MORE, XR WRIST LEFT 3VW OR MORE, XR HAND LEFT 3VW OR MORE, XR WRIST RIGHT 3VW OR MORE DATE/TIME OF EXAM: 06/26/2023 11:25 AM CLINICAL INFORMATION: None relevant/not provided if blank. Indication: M25.50: Polyarthralgia Additional History: COMPARISON: None. FINDINGS: Right hand: No fracture or dislocation is present. The joint spaces are normal. No erosions are seen. Bone density is normal. The soft tissues are normal. Left hand: No fracture or dislocation is present. The joint spaces are normal. A small subchondral cyst at the second metacarpophalangeal joint. No erosions are seen. Bone density is normal. The soft tissues are normal. Right wrist: No fracture or dislocation is present. The joint spaces are normal. No erosions are seen. Bone density is normal. The soft tissues are normal. Left wrist: No fracture or dislocation is present. The joint spaces are normal. No erosions are seen. Bone density is normal. The soft tissues are normal. Procedure Note Ab Tapia MD - 06/26/2023 PROCEDURE: XR HAND RIGHT 3VW OR MORE, XR WRIST LEFT 3VW OR MORE, XRHAND LEFT 3VW OR MORE, XR WRIST RIGHT 3VW OR MORE DATE/TIME OF EXAM: 06/26/2023 11:25 AM CLINICAL INFORMATION: None relevant/not provided if blank. Indication: M25.50: Polyarthralgia Additional History: COMPARISON: None. FINDINGS: Right hand: No fracture or dislocation is present. The joint spaces are normal. No erosions are seen. Bone density is normal. The soft tissues arenormal. Left hand: No fracture or dislocation is present. The joint spaces are normal. Asmall subchondral cyst at the second metacarpophalangeal joint. No erosionsare seen. Bone density is normal. The soft tissues are normal. Right wrist: No fracture or dislocation is present. The joint spaces are normal. No erosions are seen. Bone density is normal. The soft tissues arenormal. Left wrist: No fracture or dislocation is present. The joint spaces are normal. No erosions are seen. Bone density is normal. The soft tissues arenormal. IMPRESSION: No significant arthritis. > Interpreting Provider: Ab Tapia MD on 06/26/2023 11:30 AM Bhavya Horvath MD DIAGNOSTIC IMAGING O RDERABLES * XR HAND LEFT 3VW OR MORE (06/26/2023 11:24 AM PATTERNMAKER) Anatomical Region Laterality Modality Wrist / Hand Radiographic Roshni ging 06/26/2023 11:2 9 AM PATTERNMAKER Impressions 06/26/2023 11:30 AM PATTERNMAKER IMPRESSION: No significant arthritis. > Interpreting Provider: Ab Tapia MD on 06/26/2023 11:30 AM Narrative 06/26/2023 11:30 AM PATTERNMAKER PROCEDURE: XR HAND RIGHT 3VW OR MORE, XR WRIST LEFT 3VW OR MORE, XR HAND LEFT 3VW OR MORE, XR WRIST RIGHT 3VW OR MORE DATE/TIME OF EXAM: 06/26/2023 11:25 AM CLINICAL INFORMATION: None relevant/not provided if blank. Indication: M25.50: Polyarthralgia Additional History: COMPARISON: None. FINDINGS: Right hand: No fracture or dislocation is present. The joint spaces are normal. No erosions are seen. Bone density is normal. The soft tissues are normal. Left hand: No fracture or dislocation is present. The joint spaces are normal. A small subchondral cyst at the second metacarpophalangeal joint. No erosions are seen. Bone density is normal. The soft tissues are normal. Right wrist: No fracture or dislocation is present. The joint spaces are normal. No erosions are seen. Bone density is normal. The soft tissues are normal. Left wrist: No fracture or dislocation is present. The joint spaces are normal. No erosions are seen. Bone density is normal. The soft tissues are normal. Procedure Note Ab Tapia MD - 06/26/2023 PROCEDURE: XR HAND RIGHT 3VW OR MORE, XR WRIST LEFT 3VW OR MORE, XRHAND LEFT 3VW OR MORE, XR WRIST RIGHT 3VW OR MORE DATE/TIME OF EXAM: 06/26/2023 11:25 AM CLINICAL INFORMATION: None relevant/not provided if blank. Indication: M25.50: Polyarthralgia Additional History: COMPARISON: None. FINDINGS: Right hand: No fracture or dislocation is present. The joint spaces are normal. No erosions are seen. Bone density is normal. The soft tissues arenormal. Left hand: No fracture or dislocation is present. The joint spaces are normal. Asmall subchondral cyst at the second metacarpophalangeal joint. No erosionsare seen. Bone density is normal. The soft tissues are normal. Right wrist: No fracture or dislocation is present. The joint spaces are normal. No erosions are seen. Bone density is normal. The soft tissues arenormal. Left wrist: No fracture or dislocation is present. The joint spaces are normal. No erosions are seen. Bone density is normal. The soft tissues arenormal. IMPRESSION: No significant arthritis. > Interpreting Provider: Ab Tapia MD on 06/26/2023 11:30 AM Bhavya Horvath MD DIAGNOSTIC IMAGING O RDERABLES * XR WRIST RIGHT 3VW OR MORE (06/26/2023 11:24 AM PATTERNMAKER) Anatomical Region Laterality Modality Wrist / Hand Radiographic Roshni ging 06/26/2023 11:2 9 AM PATTERNMAKER Impressions 06/26/2023 11:30 AM PATTERNMAKER IMPRESSION: No significant arthritis. > Interpreting Provider: Ab Tapia MD on 06/26/2023 11:30 AM Narrative 06/26/2023 11:30 AM PATTERNMAKER PROCEDURE: XR HAND RIGHT 3VW OR MORE, XR WRIST LEFT 3VW OR MORE, XR HAND LEFT 3VW OR MORE, XR WRIST RIGHT 3VW OR MORE DATE/TIME OF EXAM: 06/26/2023 11:25 AM CLINICAL INFORMATION: None relevant/not provided if blank. Indication: M25.50: Polyarthralgia Additional History: COMPARISON: None. FINDINGS: Right hand: No fracture or dislocation is present. The joint spaces are normal. No erosions are seen. Bone density is normal. The soft tissues are normal. Left hand: No fracture or dislocation is present. The joint spaces are normal. A small subchondral cyst at the second metacarpophalangeal joint. No erosions are seen. Bone density is normal. The soft tissues are normal. Right wrist: No fracture or dislocation is present. The joint spaces are normal. No erosions are seen. Bone density is normal. The soft tissues are normal. Left wrist: No fracture or dislocation is present. The joint spaces are normal. No erosions are seen. Bone density is normal. The soft tissues are normal. Procedure Note Ab Tapia MD - 06/26/2023 PROCEDURE: XR HAND RIGHT 3VW OR MORE, XR WRIST LEFT 3VW OR MORE, XRHAND LEFT 3VW OR MORE, XR WRIST RIGHT 3VW OR MORE DATE/TIME OF EXAM: 06/26/2023 11:25 AM CLINICAL INFORMATION: None relevant/not provided if blank. Indication: M25.50: Polyarthralgia Additional History: COMPARISON: None. FINDINGS: Right hand: No fracture or dislocation is present. The joint spaces are normal. No erosions are seen. Bone density is normal. The soft tissues arenormal. Left hand: No fracture or dislocation is present. The joint spaces are normal. Asmall subchondral cyst at the second metacarpophalangeal joint. No erosionsare seen. Bone density is normal. The soft tissues are normal. Right wrist: No fracture or dislocation is present. The joint spaces are normal. No erosions are seen. Bone density is normal. The soft tissues arenormal. Left wrist: No fracture or dislocation is present. The joint spaces are normal. No erosions are seen. Bone density is normal. The soft tissues arenormal. IMPRESSION: No significant arthritis. > Interpreting Provider: Ab Tapia MD on 06/26/2023 11:30 AM Bhavya Horvath MD DIAGNOSTIC IMAGING O RDERABLES * XR WRIST LEFT 3VW OR MORE (06/26/2023 11:24 AM PATTERNMAKER) Anatomical Region Laterality Modality Wrist / Hand Radiographic Roshni ging 06/26/2023 11:2 9 AM PATTERNMAKER Impressions 06/26/2023 11:30 AM PATTERNMAKER IMPRESSION: No significant arthritis. > Interpreting Provider: Ab Tapia MD on 06/26/2023 11:30 AM Narrative 06/26/2023 11:30 AM PATTERNMAKER PROCEDURE: XR HAND RIGHT 3VW OR MORE, XR WRIST LEFT 3VW OR MORE, XR HAND LEFT 3VW OR MORE, XR WRIST RIGHT 3VW OR MORE DATE/TIME OF EXAM: 06/26/2023 11:25 AM CLINICAL INFORMATION: None relevant/not provided if blank. Indication: M25.50: Polyarthralgia Additional History: COMPARISON: None. FINDINGS: Right hand: No fracture or dislocation is present. The joint spaces are normal. No erosions are seen. Bone density is normal. The soft tissues are normal. Left hand: No fracture or dislocation is present. The joint spaces are normal. A small subchondral cyst at the second metacarpophalangeal joint. No erosions are seen. Bone density is normal. The soft tissues are normal. Right wrist: No fracture or dislocation is present. The joint spaces are normal. No erosions are seen. Bone density is normal. The soft tissues are normal. Left wrist: No fracture or dislocation is present. The joint spaces are normal. No erosions are seen. Bone density is normal. The soft tissues are normal. Procedure Note Ab Tapia MD - 06/26/2023 PROCEDURE: XR HAND RIGHT 3VW OR MORE, XR WRIST LEFT 3VW OR MORE, XRHAND LEFT 3VW OR MORE, XR WRIST RIGHT 3VW OR MORE DATE/TIME OF EXAM: 06/26/2023 11:25 AM CLINICAL INFORMATION: None relevant/not provided if blank. Indication: M25.50: Polyarthralgia Additional History: COMPARISON: None. FINDINGS: Right hand: No fracture or dislocation is present. The joint spaces are normal. No erosions are seen. Bone density is normal. The soft tissues arenormal. Left hand: No fracture or dislocation is present. The joint spaces are normal. Asmall subchondral cyst at the second metacarpophalangeal joint. No erosionsare seen. Bone density is normal. The soft tissues are normal. Right wrist: No fracture or dislocation is present. The joint spaces are normal. No erosions are seen. Bone density is normal. The soft tissues arenormal. Left wrist: No fracture or dislocation is present. The joint spaces are normal. No erosions are seen. Bone density is normal. The soft tissues arenormal. IMPRESSION: No significant arthritis. > Interpreting Provider: Ab Tapia MD on 06/26/2023 11:30 AM Bhavya Horvath MD DIAGNOSTIC IMAGING [facility] Care Teams Wrapper Sizer Relationship Specialty Start Date End Date Sarita Gage, CREATIVE INTERN-SECURITY SITE SUPERVISOR [address] [place] [address] PCP - General Nurse Practitioner Family 06/26/23
--- OUTSIDE RECORDS SUMMARY | 2024-08-08 14:50 | XMS_ITS | Clinical Summary ---
Author Organization [facility] Address [address] [place] [address] Care Team Providers Care Certified Pesticide Applicator Name Role Phone Sarita Gage APRN-VIDEOGAME DESIGNER Primary Care Provid er Source Comments [facility],non-owned Affiliates and Associated Physician Practices is amultiple site organization consisting of ambulatory clinics and hospital sitesin [place], [place], [place] and [place]. This disclosure is being madepursuant to the Care Everywhere program and may not contain all information available regarding this patient. Last updated 18.[facility] [employer] Allergies Active Allergy Reactions Criticality Noted Date Comments Ambien Cr Nausea and/or Vomiting,Palpitations,Othe r Medium 06/26/2023 Anxiety Hydrocodone-Acetaminophen Rash,Itching,N ausea and/or Vomiting,Swelling,Unknown Medium 06/23/2004 Latex Anaphylaxis,Swelling ,Palpi tations,Unknown High 01/17/2006 Zolpidem Other,Psychiatric,Pa lpitat ions Medium 01/22/2020 Medications * Be aware that medications may not be up to date on this document. Alwaysverify current medications with the patient. Medication Sig Dispensed Refills Start Date End Date Status traMADol (Ultram) 50 MG tablet Take 1 (one) tablet by mouth every 4 hours as needed 06/23/2023 Active QUEtiapine (SEROquel) 25 MG tablet Take 1 (one) tablet by mouth at bedtime 06/01/2023 Active phenazopyridine (Pyridium) 200 MG tablet Take 3 (three) tablets by mouth once daily 06/22/2023 Active omeprazole (PriLOSEC) 20 MG capsule Take 2 (two) capsules by mouth once daily Active naloxone HCl (Narcan) 4 MG/0.1ML nasal spray 03/14/2023 Active doxycycline hyclate (Vibramycin) 100 MG capsule Take 1 (one) capsule by mouth 2 times daily 06/11/2023 Active cyclobenzaprine (Flexeril) 10 MG tablet Take 1 (one) tablet by mouth 3 times daily 06/01/2023 Active Bacillus Coagulans-Inulin (Probiotic) 1-250 BILLION-MG CAPS Take 1 capsule by mouth once daily Active atomoxetine (Strattera) 25 MG capsule Take 1 (one) capsule by mouth once daily 06/01/2023 Active Active Problems Problem Noted Date Diagnosed Date Anxiety 06/26/2023 06/26/2023 Arthritis of right acromioclavicular joint 03/0106/26/2023 Biceps tendinitis on right 03/01/202306/26 Lumbar radiculopathy 03/08/2022 06/26/2023 DDD (degenerative disc disease), lumbar 03/05/20 22 06/26/2023 Gastroesophageal reflux disease without esophagi tis 04/11/2019 06/26/2023 Family History Medical History Relation Name Comments Diabetes - Type 2 Father Diabetes - Type 2 Mother Relation Name Status Comments Father Mother Social History Tobacco Use Types Packs/Day Years [...] Comments Blood Pressure 124/64 06/26/2023 10:27 AM RUBBER STAMP MAKER Pulse 99 06/26/2023 10:27 AM RUBBER STAMP MAKER Temperature 36.1 C (97 F) 06/26/2023 10:27 AM RUBBER STAMP MAKER Respiratory Rate - - Oxygen Saturation 96% 06/26/2023 10:27 AM RUBBER STAMP MAKER Inhaled Oxygen Concentration - - Weight 81.8 kg (180 lb 6.4 oz) 06/26/2023 10:27 AM RUBBER STAMP MAKER Height 167.6 cm (5' 6 ) 06/26/2023 10:27 AM RUBBER STAMP MAKER Body Mass Index 29.12 06/26/2023 10:27 AM RUBBER STAMP MAKER Plan of Treatment Health Maintenance Due Date Last Done Comments COLOGUARD (AGES 45-75) - COL ON CA SCREENING 1973 COLON MONITORING 1973 COLONOSCOPY - COLON CA SCREENING 1973 CT COLONOGRAPHY - COLON CA SCREENING 1973 Colorectal Cancer Screening 1973 FIT - COLON CA SCREENING 1973 FLEX SIG - COLON CA SCREENING 1973 LIPID TESTING 1973 MAMMOGRAM 1973 PAP SMEAR 1973 HIV SCREENING 1988 HEPATITIS C SCREENING 09/09/1991 DTAP/TDAP/TD VACCINES (1 - Tdap) 1992 HEPATITIS B VACCINE (1 of 3 - 19+ 3-dose series) 1992 SCREENING FOR DIABETES 06/26/2023 PNEUMOCOCCAL VACCINE 50+ (1 of 1 - PCV) 09/14/2023 ZOSTER VACCINE (1 of 2) 09/14/2023 COVID-19 VACCINE (1 - 2023-2 5 season) 2024 INFLUENZA VACCINE (#1) 2024 DEPRESSION SCREENING 06/19/2024 HIB VACCINE Aged Out No longer eligi ble based on patient's age to complete this topic HPV VACCINE Aged Out No longer eligi ble based on patient's age to complete this topic MENINGOCOCCAL (Group B) VACCINE Aged Out No longer eligible based on patient's age to complete this topic MENINGOCOCCAL VACCINE Aged Out No ari clayton eligible based on patient's age to complete this topic PNEUMOCOCCAL VACCINE Aged Out No long er eligible based on patient's age to complete this topic Care Teams Certified Pesticide Applicator Relationship Specialty Start Date End Date Sarita Gage, MICROBIOLOGY COORDINATOR-VIDEOGAME DESIGNER [address] [place] [address] PCP - General Nurse Practitioner Family 06/26/23
--- OUTSIDE RECORDS SUMMARY | 2024-08-08 14:50 | XMS_ITS | Referral Summary ---
Author Organization [facility] Address [address] [place] [address] Care Team Providers Care Turner In Name Role Phone Sarita Gage APRN-HOOKER LASTER Primary Care Provid er Source Comments [facility],non-owned Affiliates and Associated Physician Practices is amultiple site organization consisting of ambulatory clinics and hospital sitesin [place], [place], [place] and [place]. This disclosure is being madepursuant to the Care Everywhere program and may not contain all information available regarding this patient. Last updated 18.[facility] [employer] Allergies Active Allergy Reactions Criticality Noted Date [...] Comments Blood Pressure 124/64 06/26/2023 10:27 AM COOK HELPER FRUIT Pulse 99 06/26/2023 10:27 AM COOK HELPER FRUIT Temperature 36.1 C (97 F) 06/26/2023 10:27 AM COOK HELPER FRUIT Respiratory Rate - - Oxygen Saturation 96% 06/26/2023 10:27 AM COOK HELPER FRUIT Inhaled Oxygen Concentration - - Weight 81.8 kg (180 lb 6.4 oz) 06/26/2023 10:27 AM COOK HELPER FRUIT Height 167.6 cm (5' 6 ) 06/26/2023 10:27 AM COOK HELPER FRUIT Body Mass Index 29.12 06/26/2023 10:27 AM COOK HELPER FRUIT Plan of Treatment Not on file Care Teams Turner In Relationship Specialty Start Date End Date Sarita Gage, SVP [employer]-HOOKER LASTER [address] [place] [address] PCP - General Nurse Practitioner Family 06/26/23
--- OUTSIDE RECORDS SUMMARY | 2024-08-08 14:50 | XMS_ITS | Referral Summary ---
Author Organization [facility] Physician Office Building [address] [place] [address] Care Team Providers Care Soubrette Name Role Phone Joanie Hinton Unavailable [phone] Sarita Gage NP Primary Care Provider [phone] Miguel Saucedo Unavailable [phone] Abraham Steinberg MD Unavailable [phone] Allergies Active Allergy Reactions Criticality Noted Date Comments Hydrocodone-Acetaminophen Itching,Nausea & Vomiting Medium 06/23/2004 Latex Anaphylaxis,Swelling ,Palpit ations,Rash High 01/17/2006 Zolpidem Anxiety,Mental statu s changes,Palpitations Low 01/22/2020 Medications famotidine (PEPCID) 20 mg tablet Take 2 tablets (40 mg total) by mouth nightly as needed for heartburn 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/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 8 Active cyclobenzaprine (FLEXERIL) 10 mg tablet [...] (04/12/2019): Added automatically from request for surgery [id number] Other constipation 04/11/2019 Non-intractable vomiting with nausea 04/11/2019 Gastroesophageal reflux disease without esophagi tis 04/11/2019 Resolved Problems Problem Noted Date Diagnosed Date Resolved Date Primary osteoarthritis of left hip 04/12/2020 08/10/2020 Overview (04/12/2020): Added automatically from request for surgery [id number] Social History Tobacco Use Types Packs/Day Years Used Date Smoking Tobacco: Never Smokeless Tobacco: Never Alcohol Use Standard Drinks/Week Comments Yes 0 (1 standard drink = 0.6 oz pur e alcohol) occasional [facility] Utilities Answer Date Recorded In the past [...] often do you attend chur ch or quaker services? Never 04/06/2023 Do you belong to any clubs o r organizations such as orthodoxy groups, unions, fraternal or athletic groups, or [...] staff should administer the PHQ-9) 3 04/06/2023 [facility] - Occupational Stress Questionnaire Answer Date [...] place to sleep or slept in a assisted (including now)? No 04/06/2023 Personal Safety Answer Date Recorded Have you ever been in or are you currently in a harmful physical or emotional relationship or is someone making you feel afraid or unsafe? Denies 09/18/2023 Comments No Sex and Gender Information Value Date Recorded Sex Assigned at Not on file Legal Sex Female 3:58 AM .NET ARCHITECT Gender Identity Female 01/21/2020 9:55 AM CDT Sexual Orientation Straight 04/10/2019 9: 33 AM CDT Last Filed Vital Signs Vital Sign Reading Time Taken Comments Blood Pressure 111/54 09/18/2023 1:21 PM CDT Pulse 84 09/18/2023 1:21 PM CDT Temperature 36.3 C (97.3 F) 09/18/2023 12:45 PM CDT Respiratory Rate 23 09/18/2023 1:21 PM CDT Oxygen Saturation 100% 09/18/2023 1:21 PM CDT Inhaled Oxygen Concentration - - Weight 71.7 kg (158 lb) 08/21/2023 3:55 PM .NET ARCHITECT Height 167.6 cm (5' 6 ) 08/21/2023 3:55 PM .NET ARCHITECT Body Mass Index 25.5 08/21/2023 3:55 PM .NET ARCHITECT Plan of Treatment Not on file Medical Devices Implanted Type Area Healthcare Prof Device Identifier Shelf Expiration Date Model / Serial / Lot Depuy Orthopaedics Inc [id number] Stout 54mm 36mm Hip Neutral Liner Acetabular Altrx Sterile Latex Free - [id number] Implanted:Qty: 1 on 04/29/2020 by Juan Ramon Barriga MD at [facility] Left: Hip Depuy Orthopaedics Inc 01/16/2025 [id number] / / [id number] Depuy Orthopaedics Inc [id number] Stout 54mm Sector Hip Shell Acetabular Gription Sterile Latex Free - [id number] Implanted:Qty: 1 on 04/29/2020 by Juan Ramon Barriga MD at [facility] Left: Hip Depuy Orthopaed[employer] Inc 03/18/2030 [id number] / / [id number] Depuy Orthopaedics Inc [id number] Actis 99mm Collar Hip 2 12/14 High Offset Taper Stem Femoral - [id number] Implanted:Qty: 1 on 04/29/2020 by Juan Ramon Barriga MD at [facility] Left: Hip Depuy Orthopaed[employer] Inc 12/16/2029 [id number] / / [id number] Depuy Orthopaedics Inc [id number] Articul/[place] 36mm Cementless Hip +5mm 12/14 Taper Head Femoral Latex Free - [id number] Implanted:Qty: 1 on 04/29/2020 by Juan Ramon Barriga MD at [facility] Left: Hip Depuy Orthopaedics Inc 01/16/2025 [id number] / / [id number] Ar[employer]rex Inc Suture [place] Fiberwire Biocomp Fibertak 1.3x1.7mm Lf Ar-3652tsp - [id number] Implanted:Qty: 1 on 03/14/2023 by Marcelino Ernandez MD at [facility] Right: Shoulder [employer] 12/17/2027 AR-3652TSP / / [id number] Ar[employer] Suture [place] Fiberwire Knotless Biocomp Fibertak Lf Ar-3652sp - [id number] Implanted:Qty: 1 on 03/14/2023 by Marcelino Ernandez MD at [facility] Right: Shoulder [employer] 12/17/2027 AR-3652SP / / [id number] Ar[employer] Inc Swivelock C 4.75mm 19.1mm Closed Eyelet Vent [place] Suture Ar-2324bcc - [id number] Implanted:Qty: 1 on 03/14/2023 by Marcelino Ernandez MD at [facility] Right: Shoulder [employer] 11/16/2026 AR-2324BCC / / [id number] Ar[employer] Swivelock C 4.75mm 19.1mm Closed Eyelet Vent [place] Suture Ar-2324bcc - [id number] Implanted:Qty: 1 on 03/14/2023 by Marcelino Ernandez MD at [facility] Right: Shoulder [employer] 11/16/2026 AR-2324BCC / / [id number] [employer] Suture [place] Double Loaded Knotless Fibertak 2.6mm Ar-3632sp - [id number] Implanted:Qty: 1 on 09/18/2023 by Javan Villalobos MD at [facility][1] Right: Shoulder [employer] [id number] 03/18/2028 AR-3632SP / / [id number] Ar[employer] Inc Swivelock C 4.75mm 19.1mm Closed Eyelet Vent [place] Suture Ar-2324bcc - [id number] Implanted:Qty: 1 on 09/18/2023 by Javan Villalobos MD at [facility][1] Right: Shoulder [employer] [id number] 06/18/2027 AR-2324BCC / / [id number] Ar[employer] Inc Swivelock C 4.75mm 19.1mm Closed Eyelet Vent [place] Suture Ar-2324bcc - [id number] Implanted:Qty: 1 on 09/18/2023 by Javan Villalobos MD at [facility][1] Right: Shoulder [employer] [id number] 06/18/2027 AR-2324BCC / / [id number] Ar[employer] Inc Corkscrew Suturetape 5.5mm 14.7mm Bioabsorbable Full Thread 1.3mm Ar-1927bct - [id number] Implanted:Qty: 1 on 09/18/2023 by Javan Villalobos MD at [facility][1] Right: Shoulder [employer] [id number] 01/16/2025 AR-1927BCT / / [id number] [employer] Suture [place] Double Loaded Knotless Fibertak 2.6mm Ar-3632sp - [id number] Implanted:Qty: 1 on 09/18/2023 by Javan Villalobos MD at [facility][1] Right: Shoulder [employer] [id number] 03/18/2028 AR-3632SP / / [id number] Insurance [facility] CHOICE PLUS [facility] CHOICE PLUS [facility] CHOICE PLUS [place] [id number] Advance Directives For more information, please contact: [phone] * Full Code (Latest Code Status on File) Date Activated Date Inactivated Comments 04/05/2023 7:38 PM 04/08/2023 3:43 PM * Full Code Date Activated Date Inactivated Comments 04/29/2020 11:33 AM 04/30/2020 10:01 PM Care Teams Soubrette Relationship Specialty Start Date End Date Sarita Gage, DRESS DRAPER [address] [place] [address] PCP - General Nurse Practitioner 02/24/23 Joanie Hinton PA Orthopedic Surgery 04/30/20 Miguel Saucedo PA [address] [facility] [place] [address] Physician Combination Saw Operator Orthopedic Surgery 03/14/23 Abraham Steinberg MD [address] [facility] [facility] [address] [place] [address] Consulting Physician Infectious Diseases 04/08/23
[2024-08-08 14:59] LABS: Basophils Absolute Auto 0.03 K/mm3 (0.00-0.10); Basophils Percent Auto 0.5 % (0.0-1.0); Eosinophils Absolute Auto 0.07 K/mm3 (0.02-0.50); Eosinophils Percent Auto 1.1 % (1.0-6.0); Hematocrit 45.1 % (35.0-49.0); Hemoglobin 14.2 g/dL (12.0-15.0); Immature Granulocyte Absolute 0.01 K/mm3 (0.00-0.00); Immature Granulocyte Percent A 0.2 % (0.0-0.0); Lymphocytes Percent Auto 45.5 % (18.0-42.0); Mean Corpuscular HGB Conc 31.5 g/dL (32-36); Mean Corpuscular Hemoglobin 27.5 pg (27.0-31.0); Mean Corpuscular Volume 87.4 fL (78.0-102.0); Mean Platelet Volume 8.9 fl (9.2-11.8); Monocytes Absolute Auto 0.49 K/mm3 (0.10-0.90); Neutrophils Absolute Auto 2.75 K/mm3 (1.70-7.20); Neutrophils Percent Auto 44.7 % (50.0-70.0); Platelet Count Result 296 K/mm3 (150-420); Red Blood Count 5.16 M/mm3 (4.20-5.40); Red Cell Distribution Width 12.6 % (11.6-14.4); White Blood Count 6.2 K/mm3 (4.8-10.8)
[2024-08-08 16:40] LABS: Alanine Aminotransferase 29 U/L (14-59); Albumin Level 4.6 g/dL (3.4-5.0); Alkaline Phosphatase 78 U/L (46-116); Anion Gap 11 mmol/L (4-12); Aspartate Amino Transferase 15 U/L (15-37); Bilirubin,Total 0.6 mg/dL (0.00-1.00); Blood Urea Nitrogen 16 mg/dL (7-18); CRP < 0.5 mg/dL (0.0-0.9); Carbon Dioxide 28 mmol/L (21-32); Chloride 103 mmol/L (98-108); Estimated Glomerular Filt Rate > 60; Glucose 86 mg/dL (70-99); Lipase 33 U/L (16-77); Osmolality Calculated 294 mOsm/kg (285-295); Potassium 4.3 mmol/L (3.5-5.1); Sodium 142 mmol/L (136-145); Total Protein 7.4 g/dL (6.4-8.2)
== END 2024-08-08 14:46 | disposition home or self-care (01) ==
PROVIDERS: PCP Family Medicine; Visit Provider Family Medicine
DX: R10.9 Unspecified abdominal pain (principal)
CPT/HCPCS: 36415; 74177; 80053; 83690; 85025; 86140; Q9967

== ENCOUNTER 2024-10-15 16:47 | Outpatient (CLI) | payer OTHER, SELFPAY ==
--- NOTE | ~2024-10-15 | XR_ITS ---
EXAMINATION: XR chest 2V 10/15/2024 17:03 INDICATION: Shortness of breath and cough PROCEDURE: 2 view chest COMPARISON: 03/09/2023 FINDINGS: The lungs are clear. The cardiomediastinal silhouette is within normal limits. There are no pleural effusions. There is no pneumothorax suspected. IMPRESSION: 1: NO ACUTE CARDIOPULMONARY DISEASE. Reviewed, dictated and finalized at location A.
--- OUTSIDE RECORDS SUMMARY | 2024-10-15 17:37 | XMS_ITS | Encounter Summary ---
Author Organization [facility] Healthcare Address [address] [place] [address] Care Team Providers Care Portfolio Architect Name Role Phone Gutierrez Hernández MD Primary Care Provider [phone] Joanie Hinton Unavailable [phone] Sarita Gage NP Primary Care Provider [phone] Miguel Saucedo Unavailable [phone] Abraham Steinberg MD Unavailable [phone]- [phone] Encounter Details Date Type Department Care Team (Late st Contact Info) Description 01/24/2020 Telephone [facility] [address] [place] [id number] Destiny Caban, RT Social History Tobacco Use Types Packs/Day Years Used Date Smoking Tobacco: Never Smokeless Tobacco: Never Alcohol Use Standard Drinks/Week Comments Yes 0 (1 standard drink = 0.6 oz pur e alcohol) occasional PHQ-2 Answer Date Recorded PHQ-2 Score 0 04/11/2019 Comments Unknown Sex and Gender Information Value Date Recorded Sex Assigned at Not on file Legal Sex Female 3:58 AM GRADUATE RECRUITER Gender Identity Female 01/21/2020 9:55 AM CDT Sexual Orientation Straight 04/10/2019 9: 33 AM CDT documented as of this encounter Plan of Treatment Not on file documented as of this encounter Visit Diagnoses Not on filedocumented in this encounter Care Teams Portfolio Architect Relationship Specialty Start Date End Date Gutierrez Hernández MD [address] [place] [address] PCP - General Family Medicine 03/18/19 02/23/23 Sarita Gage RETAIL ADVERTISING EXECUTIVE [address] [place] [address] PCP - General Nurse Practitioner 02/24/23 Joanie Hinton PA [address] [facility] [place] [address] Orthopedic Surgery 04/30/20 Miguel Saucedo PA [address] [facility] [address] [place] [address] Physician Park Interpretive Specialist Orthopedic Surgery 03/14/23 Abraham Steinberg MD [address] [facility] [address] [place] [address] Consulting Physician Infectious Diseases 04/08/23 documented as of this encounter
--- OUTSIDE RECORDS SUMMARY | 2024-10-15 17:37 | XMS_ITS | Clinical Summary ---
Author Organization [facility] Physician Office Building [address] [place] [address] Care Team Providers Care Head Stock Transfer Clerk Name Role Phone Joanie Hinton Unavailable [phone] Sarita Gage NP Primary Care Provider [phone] Miguel Saucedo Unavailable [phone] Abraham Steinberg MD Unavailable [phone] Allergies Active Allergy Reactions Criticality Noted Date Comments Hydrocodone-Acetaminophen Itching,Nausea & Vomiting Medium 06/23/2004 Latex Anaphylaxis,Swelling ,Palpit ations,Rash High 01/17/2006 Zolpidem Anxiety,Mental statu s changes,Palpitations Low 01/22/2020 Medications famotidine (PEPCID) 20 mg tablet Take 2 tablets (40 mg total) by mouth nightly as needed for heartburn 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 8 Active cyclobenzaprine (FLEXERIL) 10 mg tablet [...] (04/12/2019): Added automatically from request for surgery [id number] Other constipation 04/11/2019 Non-intractable vomiting with nausea 04/11/2019 Gastroesophageal reflux disease without esophagi tis 04/11/2019 Resolved Problems Problem Noted Date Diagnosed Date Resolved Date Primary osteoarthritis of left hip 04/12/2020 08/10/2020 Overview (04/12/2020): Added automatically from request for surgery [id number] Surgical History Surgery Date Site/Laterality Comments CHOLECYSTECTOMY [...] Grandfather Juan Ramon Heart attack Maternal Grandmother [place] Heart disease Maternal Grandmother [place] Alcohol abuse Mother Marshal Sies Depression Mother Marshal Sies Diabetes Mother Marshal Sies Heart attack Mother Marshal Sies Heart disease Mother Marshal Sies Hyperlipidemia Mother Marshal Sies Hypertension Mother Marshal Sies Stroke Mother Marshal Sies Alcohol abuse Mother's Sister Merna Diabetes Paternal Grandmother [place] Depression Sister Pradeep Anesthesia problems Neg Hx Relation Name Status Comments Brother Niranjan Daughter Olya Father Uri Maternal Grandfather Juan Ramon Maternal Grandmother [place] Mother Marshal Sies Alive Mother's Sister Merna Paternal Grandmother [place] Sister Pradeep Social History Tobacco Use Types [...] often do you attend chur ch or confucianism services? Never 04/06/2023 Do you belong to any clubs o r organizations such as congregational groups, unions, fraternal or athletic groups, or [...] staff should administer the PHQ-9) 3 04/06/2023 [facility] Questionnaire Answer Date [...] place to sleep or slept in a longterm (including now)? No 04/06/2023 Personal Safety Answer Date Recorded Have you ever been in or are you currently in a harmful physical or emotional relationship or is someone making you feel afraid or unsafe? Denies 09/18/2023 Comments No Sex and Gender Information Value Date Recorded Sex Assigned at Not on file Legal Sex Female 3:58 AM SENIOR DENTIST Gender Identity Female 01/21/2020 9:55 AM CDT [...] 71.7 kg (158 lb) 08/21/2023 3:55 PM SENIOR DENTIST Height 167.6 cm (5' 6 ) 08/21/2023 3:55 PM SENIOR DENTIST Body Mass Index 25.5 08/21/2023 3:55 PM SENIOR DENTIST Plan of Treatment Health Maintenance Due Date Last Done Comments Breast Cancer Screening-Mammogram 1973 Colon Cancer Screening-Colonoscopy 1973 Hepatitis C Screening 1973 DTaP/Tdap/Td Vaccine (1 - Tdap) 1984 Hepatitis B Screening 09/14/1991 Regular Well Visit/Exam 18-64 09/14/1991 Zoster Vaccine (1 of 2) 09/14/2023 Depression Screening 04/06/2024 04/06/2023, 03/08/2022, 03/08/2022, Additional history exists Influenza Vaccine (Season Ended) 2025 03/28/2016, 04/01/2014 Pneumococcal vaccine <65 Aged Out No longer eligible based on patient's age to complete this topic Medical Devices Implanted Type Area Industrial Controls Technician Device Identifier Shelf Expiration Date Model / Serial / Lot Depuy Orthopaedics Inc [id number] [place] 54mm 36mm Hip Neutral Liner Acetabular Altrx Sterile Latex Free - [id number] Implanted:Qty: 1 on 04/29/2020 by Juan Ramon Barriga MD at [facility] Left: Hip Depuy Orth[employer]ed[employer] Inc 01/16/2025 [id number] / / [id number] Depuy Orthopaedics Inc [id number] [place] 54mm Sector Hip Shell Acetabular Gription Sterile Latex Free - [id number] Implanted:Qty: 1 on 04/29/2020 by Juan Ramon Barriga MD at [facility] Left: Hip Depuy Orthopaed[employer] Inc 03/18/2030 [id number] / / [id number] Depuy Orthopaedics Inc [id number] Actis 99mm Collar Hip 2 06/01 High Offset Taper Stem Femoral - [id number] Implanted:Qty: 1 on 04/29/2020 by Juan Ramon Barriga MD at [facility] Left: Hip Depuy Orthopaed[employer] Inc 12/16/2029 [id number] / / [id number] Depuy Orthopaedics Inc [id number] Articul/Rayshawn 36mm Cementless Hip +5mm 12/14 Taper Head Femoral Latex Free - [id number] Implanted:Qty: 1 on 04/29/2020 by Juan Ramon Barriga MD at [facility] Left: Hip Depuy Orthopaed[employer] Inc 01/16/2025 [id number] / / [id number] Ar[employer]rex Inc Suture [place] Fiberwire Biocomp Fibertak 1.3x1.7mm Lf Ar-3652tsp - [id number] Implanted:Qty: 1 on 03/14/2023 by Marcelino Ernandez MD at [facility] Right: Shoulder [employer] Inc 12/17/2027 AR-3652TSP / / [id number] Ar[employer] Suture [place] Fiberwire Knotless Biocomp Fibertak Lf Ar-3652sp - [id number] Implanted:Qty: 1 on 03/14/2023 by Marcelino Ernandez MD at [facility] Right: Shoulder [employer] 12/17/2027 AR-3652SP / / [id number] [employer] Swivelock C 4.75mm 19.1mm Closed Eyelet Vent [place] Suture Ar-2324bcc - [id number] Implanted:Qty: 1 on 03/14/2023 by Marcelino Ernandez MD at [facility] Right: Shoulder [employer] 11/16/2026 AR-2324BCC / / [id number] Ar[employer] Swivelock C 4.75mm 19.1mm Closed Eyelet Vent [place] Suture Ar-2324bcc - [id number] Implanted:Qty: 1 on 03/14/2023 by Marcelino Ernandez MD at [facility] Right: Shoulder [employer] 11/16/2026 AR-2324BCC / / [id number] Ar[employer] Suture [place] Double Loaded Knotless Fibertak 2.6mm Ar-3632sp - [id number] Implanted:Qty: 1 on 09/18/2023 by Javan Villalobos MD at [facility] Right: Shoulder [employer] [id number] 03/18/2028 AR-3632SP / / [id number] Ar[employer] Swivelock C 4.75mm 19.1mm Closed Eyelet Vent [place] Suture Ar-2324bcc - [id number] Implanted:Qty: 1 on 09/18/2023 by Javan Villalobos MD at [facility] Right: Shoulder [employer] [id number] 06/18/2027 AR-2324BCC / / [id number] Ar[employer] Swivelock C 4.75mm 19.1mm Closed Eyelet Vent [place] Suture Ar-2324bcc - [id number] Implanted:Qty: 1 on 09/18/2023 by Javan Villalobos MD at [facility] Right: Shoulder [employer] Inc [id number] 06/18/2027 AR-2324BCC / / [id number] Ar[employer] Inc Corkscrew Suturetape 5.5mm 14.7mm Bioabsorbable Full Thread 1.3mm Ar-1927bct - [id number] Implanted:Qty: 1 on 09/18/2023 by Javan Villalobos MD at [facility] Right: Shoulder [employer] [id number] 01/16/2025 AR-1927BCT / / [id number] Ar[employer] Inc Suture [place] Double Loaded Knotless Fibertak 2.6mm Ar-3632sp - [id number] Implanted:Qty: 1 on 09/18/2023 by Javan Villalobos MD at [facility] Right: Shoulder [employer] [id number] 03/18/2028 AR-3632SP / / [id number] Insurance [facility] CHOICE PLUS [facility] CHOICE PLUS [facility] CHOICE PLUS [place] [id number] Advance Directives For more information, please contact: [phone] * Full Code (Latest Code Status on File) Date Activated Date Inactivated Comments 04/05/2023 7:38 PM 04/08/2023 3:43 PM * Full Code Date Activated Date Inactivated Comments 04/29/2020 11:33 AM 04/30/2020 10:01 PM Care Teams Head Stock Transfer Clerk Relationship Specialty Start Date End Date Sarita Gage NP [address] [place] [address] PCP - General Nurse Practitioner 02/24/23 Joanie Hinton PA Orthopedic Surgery 04/30/20 Miguel Saucedo PA [address] [place] [address] [address] [place] [address] Physician Kardex Clerk Orthopedic Surgery 03/14/23 Abraham Steinberg MD [address] [place] [address] [address] [place] [address] Consulting Physician Infectious Diseases 04/08/23
--- OUTSIDE RECORDS SUMMARY | 2024-10-15 17:37 | XMS_ITS | Referral Summary ---
Author Organization [facility] Building [address] [place] [id number] Care Team Providers Care Radio Performer Name Role Phone Joanie Hinton Unavailable [phone] Sarita Gage NP Primary Care Provider [phone] Miguel Saucedo Unavailable [phone] Abraham Steinberg MD Unavailable [phone] Allergies Active Allergy Reactions Criticality Noted Date Comments Hydrocodone-Acetaminophen Itching,Nausea & Vomiting Medium 06/23/2004 Latex Anaphylaxis,Swelling ,Palpit ations,Rash High 01/17/2006 Zolpidem Anxiety,Mental statu s changes,Palpitations Low 01/22/2020 Medications famotidine (PEPCID) 20 mg tablet Take 2 tablets (40 mg total) by mouth nightly as needed for heartburn 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 8 Active cyclobenzaprine (FLEXERIL) 10 mg tablet [...] (04/12/2019): Added automatically from request for surgery [id number] Other constipation 04/11/2019 Non-intractable vomiting with nausea 04/11/2019 Gastroesophageal reflux disease without esophagi tis 04/11/2019 Resolved Problems Problem Noted Date Diagnosed Date Resolved Date Primary osteoarthritis of left hip 04/12/2020 08/10/2020 Overview (04/12/2020): Added automatically from request for surgery [id number] Social History Tobacco Use Types Packs/Day Years Used Date Smoking Tobacco: Never Smokeless Tobacco: Never Alcohol Use Standard Drinks/Week Comments Yes 0 (1 standard drink = 0.6 oz pur e alcohol) occasional [facility] Utilities Answer Date Recorded In the past [...] any clubs o r organizations such as buddhism groups, unions, fraternal or athletic groups, or [...] staff should administer the PHQ-9) 3 04/06/2023 [facility] - Occupational [...] place to sleep or slept in a fdc (including now)? No 04/06/2023 Personal Safety Answer Date Recorded Have you ever been in or are you currently in a harmful physical or emotional relationship or is someone making you feel afraid or unsafe? Denies 09/18/2023 Comments No Sex and Gender Information Value Date Recorded Sex Assigned at Not on file Legal Sex Female 3:58 AM DENTAL LABORATORY TECHNOLOGY TEACHER Gender Identity Female 01/21/2020 9:55 AM CDT [...] 71.7 kg (158 lb) 08/21/2023 3:55 PM DENTAL LABORATORY TECHNOLOGY TEACHER Height 167.6 cm (5' 6 ) 08/21/2023 3:55 PM DENTAL LABORATORY TECHNOLOGY TEACHER Body Mass Index 25.5 08/21/2023 3:55 PM DENTAL LABORATORY TECHNOLOGY TEACHER Plan of Treatment Not on file Medical Devices Implanted Type Area Director Video Device Identifier Shelf Expiration Date Model / Serial / Lot Depuy [employer] [id number] Dunnegan 54mm 36mm Hip Neutral Liner Acetabular Altrx Sterile Latex Free - [id number] Implanted:Qty: 1 on 04/29/2020 by Juan Ramon Barriga MD at [facility] Left: Hip [employer]uy [employer] 01/16/2025 [id number] / / [id number] Dep[employer] [id number] Dun[place]gan 54mm Sector Hip Shell Acetabular Gription Sterile Latex Free - [id number] Implanted:Qty: 1 on 04/29/2020 by Juan Ramon Barriga MD at [facility] Left: Hip [employer] 03/18/2030 [id number] / / [id number] Depuy [employer] [id number] Actis 99mm Collar Hip 2 12/14 High Offset Taper Stem Femoral - [id number] Implanted:Qty: 1 on 04/29/2020 by Juan Ramon Barriga MD at [facility] Left: Hip [employer] 12/16/2029 [id number] / / [id number] Depuy [employer] [id number] Articul/Rayshawn 36mm Cementless Hip +5mm 12/14 Taper Head Femoral Latex Free - [id number] Implanted:Qty: 1 on 04/29/2020 by Juan Ramon Barriga MD at [facility] Left: Hip [employer] 01/16/2025 [id number] / / [id number] [employer] Suture [place]ond[place] Fiberwire Biocomp Fibertak 1.3x1.7mm Lf Ar-3652tsp - [id number] Implanted:Qty: 1 on 03/14/2023 by Marcelino Ernandez MD at [facility] Right: Shoulder [employer] 12/17/2027 AR-3652TSP / / [id number] [employer] Suture [place] Fiberwire Knotless Biocomp Fibertak Lf Ar-3652sp - [id number] Implanted:Qty: 1 on 03/14/2023 by Marcelino Ernandez MD at [facility] Right: Shoulder [employer] 12/17/2027 AR-3652SP / / [id number] [employer] Swivelock C 4.75mm 19.1mm Closed Eyelet Vent Klondike Suture Ar-2324bcc - [id number] Implanted:Qty: 1 on 03/14/2023 by Marcelino Ernandez MD at [facility] Right: Shoulder [employer] 11/16/2026 AR-2324BCC / / [id number] [employer] Swivelock C 4.75mm 19.1mm Closed Eyelet Vent Klondike Suture Ar-2324bcc - [id number] Implanted:Qty: 1 on 03/14/2023 by Marcelino Ernandez MD at [facility] Right: Shoulder [employer] 11/16/2026 AR-2324BCC / / [id number] [employer] Suture [place]ond[place] Double Loaded Knotless Fibertak 2.6mm Ar-3632sp - [id number] Implanted:Qty: 1 on 09/18/2023 by Javan Villalobos MD at [facility] Right: Shoulder [employer] [id number] 03/18/2028 AR-3632SP / / [id number] [employer] Swivelock C 4.75mm 19.1mm Closed Eyelet Vent Klondike Suture Ar-2324bcc - [id number] Implanted:Qty: 1 on 09/18/2023 by Javan Villalobos MD at [facility] Right: Shoulder [employer] [id number] 06/18/2027 AR-2324BCC / / [id number] [employer] Swivelock C 4.75mm 19.1mm Closed Eyelet Vent Klondike Suture Ar-2324bcc - [id number] Implanted:Qty: 1 on 09/18/2023 by Javan Villalobos MD at [facility] Right: Shoulder [employer] [id number] 06/18/2027 AR-2324BCC / / [id number] [employer] Corkscrew Suturetape 5.5mm 14.7mm Bioabsorbable Full Thread 1.3mm Ar-1927bct - [id number] Implanted:Qty: 1 on 09/18/2023 by Javan Villalobos MD at [facility] Right: Shoulder [employer] [id number] 01/16/2025 AR-1927BCT / / [id number] [employer] Suture [place] Double Loaded Knotless Fibertak 2.6mm Ar-3632sp - [id number] Implanted:Qty: 1 on 09/18/2023 by Javan Villalobos MD at [facility] Right: Shoulder [employer] [id number] 03/18/2028 AR-3632SP / / [id number] Insurance [facility] PL[facility] PLUS [facility] PLUS [place] [id number] Advance Directives For more information, please contact: [phone] * Full Code (Latest Code Status on File) Date Activated Date Inactivated Comments 04/05/2023 7:38 PM 04/08/2023 3:43 PM * Full Code Date Activated Date Inactivated Comments 04/29/2020 11:33 AM 04/30/2020 10:01 PM Care Teams Radio Performer Relationship Specialty Start Date End Date Sarita Gage, COMPUTER SYSTEMS ENGINEER [address] [place] [address] PCP - General Nurse Practitioner 02/24/23 Joanie Hinton PA Orthopedic Surgery 04/30/20 Miguel Saucedo PA [address] [facility] [place] [address] Physician Systems Development Consultant Orthopedic Surgery 03/14/23 Abraham Steinberg MD [address] [facility] [address] [place] [address] Consulting Physician Infectious Diseases 04/08/23
--- OUTSIDE RECORDS SUMMARY | 2024-10-15 17:37 | XMS_ITS | Clinical Summary ---
Author Organization [facility] Address [address] [place] [address] Care Team Providers Care Fryer Line Helper Name Role Phone Sarita Gage APRN-RELIEF PHARMACIST Primary Care Provid er Source Comments [facility],non-owned Affiliates and Associated Physician Practices is amultiple site organization consisting of ambulatory clinics and hospital sitesin [place], [place], [place] and [place]. This disclosure is being madepursuant to the Care Everywhere program and may not contain all information available regarding this patient. Last updated 18.[facility] [employer] Allergies Active Allergy Reactions Criticality Noted Date Comments Ambien Cr Nausea and/or Vomiting,Palpitations,Othe r Medium 06/26/2023 Anxiety Hydrocodone-Acetaminophen Rash,Itching,N ausea and/or Vomiting,Swelling,Unknown Medium 06/23/2004 Latex Anaphylaxis,Swelling ,Palpi tations,Unknown High 01/17/2006 Zolpidem Other,Psychiatric,Pa lpitat ions Medium 01/22/2020 Medications * Be aware that medications may not be up to date on this document. Alwaysverify current medications with the patient. traMADol (Ultram) 50 MG tablet Take 1 [...] mouth 3 times daily 06/01/2023 Active Bacillus Coagulans-Inuli n (Probiotic) 1-250 BILLION-MG CAPS Take 1 capsule [...] drink = 0.6 oz pur e alcohol) Comments No Sex and Gender Information Value Date Recorded Sex Assigned at Not on file Legal Sex Female 12:48 PM CDT Gender Identity Not on file Sexual Orientation Not on file Last Filed Vital Signs Vital Sign Reading Time Taken Comments Blood Pressure 124/64 06/26/2023 10:27 AM CASE MANAGEMENT COORDINATOR Pulse 99 06/26/2023 10:27 AM CASE MANAGEMENT COORDINATOR Temperature 36.1 C (97 F) 06/26/2023 10:27 AM CASE MANAGEMENT COORDINATOR Respiratory Rate - - Oxygen Saturation 96% 06/26/2023 10:27 AM CASE MANAGEMENT COORDINATOR Inhaled Oxygen Concentration - - Weight 81.8 kg (180 lb 6.4 oz) 06/26/2023 10:27 AM CASE MANAGEMENT COORDINATOR Height 167.6 cm (5' 6 ) 06/26/2023 10:27 AM CASE MANAGEMENT COORDINATOR Body Mass Index 29.12 06/26/2023 10:27 AM CASE MANAGEMENT COORDINATOR Plan of Treatment Health Maintenance Due Date [...] VACCINE (1 - 2023-2 5 season) 2024 DEPRESSION SCREENING 06/19/2024 INFLUENZA VACCINE (Season Ended) 2025 HIB VACCINE Aged Out No longer eligi ble based on patient's age to complete this topic HPV VACCINE Aged Out No longer eligi ble based on patient's age to complete this topic MENINGOCOCCAL (Group B) VACC INE SHARED DECISION-MAKING Aged Out No longer eligibl e based on patient's age to complete this topic MENINGOCOCCAL GROUPS A/C/Y/W VACCINE Aged Out No longer eligible b ased on patient's age to complete this topic Insurance [facility] Care Teams Fryer Line Helper Relationship Specialty Start Date End Date Sarita Gage, SCREW MACHINE OPERATOR-RELIEF PHARMACIST [address] [place] [address] PCP - General Nurse Practitioner Family 06/26/23
[2024-10-16 03:49] LABS: Progesterone <0.5 ng/mL
== END 2024-10-15 16:48 | disposition home or self-care (01) ==
LOC: CHSLAB 16:48
PROVIDERS: PCP Nurse Practitioner Family; Visit Provider Obstetrics & Gynecology
DX: R06.02 Shortness of breath (principal); Z78.0 Asymptomatic menopausal state
CPT/HCPCS: 36415; 71046; 82672; 84144; 84403

== ENCOUNTER 2025-01-07 10:50 | Outpatient (CLI) | payer OTHER, SELFPAY ==
[2025-01-07 11:18] LABS: Hematocrit 47.1 % (35.0-49.0); Hemoglobin 15.0 g/dL (12.0-15.0); Immature Granulocyte Percent A 0.3 % (0.0-0.0); Lymphocytes Absolute Auto 3.26 K/mm3 (1.10-4.50); Mean Corpuscular HGB Conc 31.8 g/dL (32-36); Mean Corpuscular Hemoglobin 27.7 pg (27.0-31.0); Mean Corpuscular Volume 87.1 fL (78.0-102.0); Nucleated Red Blood Cells Absolute Auto 0.00 K/mm3 (0.00-0.00); Nucleated Red Blood Cells Perc 0.0 % (0-0.0); Platelet Count Result 310 K/mm3 (150-420); Red Blood Count 5.41 M/mm3 (4.20-5.40); White Blood Count 7.1 K/mm3 (4.8-10.8)
[2025-01-07 11:44] LABS: Iron 206 ug/dL (37-170)
[2025-01-07 11:47] LABS: Alanine Aminotransferase 32 U/L (6-35); Albumin Level 5.0 g/dL (3.5-5.1); Alkaline Phosphatase 82 U/L (38-126); Anion Gap 8 mmol/L (4-12); Aspartate Amino Transferase 31 U/L (14-36); Bilirubin,Total 0.7 mg/dL (0.2-1.3); Blood Urea Nitrogen 17 mg/dL (7-17); Calcium 9.1 mg/dL (8.4-10.2); Carbon Dioxide 26 mmol/L (22-30); Chloride 107 mmol/L (98-107); Estimated Glomerular Filt Rate > 60; Glucose 96 mg/dL (65-110); Magnesium 2.3 mg/dL (1.6-2.3); Osmolality Calculated 293 mOsm/kg (285-295); Potassium 4.6 mmol/L (3.4-5.0); Sodium 141 mmol/L (137-145); Total Protein 7.6 g/dL (6.3-8.2)
[2025-01-07 11:55] LABS: Percent Iron Saturation 45 % (20-50)
[2025-01-07 12:03] LABS: Free T4 Free Thyroxine 1.09 ng/dL (0.78-2.19)
[2025-01-07 12:16] LABS: Thyroid Stimulating Hormone 0.958 uIU/mL (0.465-4.680)
[2025-01-07 12:21] LABS: Ferritin 45.30 ng/mL (11.1-264)
[2025-01-07 12:36] LABS: Vitamin B12 > 1000.0 pg/mL (239-931)
== END 2025-01-07 10:51 | disposition home or self-care (01) ==
PROVIDERS: PCP Nurse Practitioner Family; Visit Provider Nurse Practitioner Family
DX: G47.00 Insomnia, unspecified (principal); Z79.899 Other long term (current) drug therapy; E53.8 Deficiency of other specified B group vitamins; D64.9 Anemia, unspecified
CPT/HCPCS: 36415; 80053; 82306; 82607; 82728; 83540; 83550; 83735; 84439; 84443; 84480; 85025

== ENCOUNTER 2025-01-16 07:00 | Outpatient (CLI) | payer OTHER, SELFPAY ==
--- NOTE | ~2025-01-16 | MR_ITS ---
EXAMINATION: MR brain/brain stem wo con DATE: 01/16/2025 07:45 INDICATION: Dizziness and giddiness TECHNIQUE: Magnetic resonance imaging (MRI) of the brain and brainstem was performed without intraven ous contrast. Sequences included sagittal and axial T1-weighted SE, axial diffusion-weighted FS SE, a xial T2*-weighted GRE, axial T2-weighted FLAIR, and axial T2-weighted FSE. Postcontrast axial and cor onal T1-weighted SE was obtained. Apparent diffusion coefficient (ADC) maps were created. COMPARISON: Brain MR dated 07/26/2022 FINDINGS: There are no areas of restricted diffusion to suggest acute infarction. No intracranial hemorrhage or abnormal intracranial mass lesion. There are a few small scattered foci of nonspecific increased T2- weighted signal intensity in the cerebral white matter which is within normal limits for age. There a re no intraparenchymal signal abnormalities seen on the other pulse sequences. The ventricles are sym metric and normal in size. There are no abnormal extra-axial fluid collections. There are low-lying b ilateral cerebellar tonsillar which extends up to 4 mm caudal to the level of the foramen magnum on t he right. Flow voids are seen in the cerebral arteries on the T2-weighted sequences consistent with t heir expected patency. Mild mucoperiosteal thickening the bilateral ethmoid sinuses. Visualized orbit s and soft tissues are unremarkable. There are no areas of abnormal enhancement on the post contrast images. IMPRESSION: 1. Bilateral low lying cerebellar tonsils extending up to 4 mm caudal to the level of the foramen mag num on the right. Otherwise normal brain. Reviewed, dictated and finalized at location A. IMPRESSION: 1. Bilateral low lying cerebellar tonsils extending up to 4 mm caudal to the le gauri of the foramen magnum on the right. Otherwise normal brain.
== END 2025-01-16 07:01 | disposition home or self-care (01) ==
LOC: CHSIMG 07:01
PROVIDERS: PCP Nurse Practitioner Family; Visit Provider Nurse Practitioner Family
DX: R42 Dizziness and giddiness (principal); G47.00 Insomnia, unspecified
CPT/HCPCS: 70551

== ENCOUNTER 2025-01-28 09:12 | Outpatient (CLI) | payer OTHER, SELFPAY ==
--- OUTSIDE RECORDS SUMMARY | 2025-01-28 09:40 | XMS_ITS | Clinical Summary ---
Author Organization [facility] [address] [place] [id number] Care Team Providers Care Tight Rope Walker Name Role Phone Joanie Hinton Unavailable [phone] Sarita aGge NP Primary Care Provider [phone] Miguel Saucedo Unavailable [phone] Abraham Steinberg MD Unavailable [phone] Allergies Active Allergy Reactions Criticality Noted Date Comments Hydrocodone-Acetaminophen Itching,Nausea & Vomiting Medium 06/23/2004 Latex Anaphylaxis,Swelling ,Palpit ations,Rash High 01/17/2006 Zolpidem Anxiety,Mental statu s changes,Palpitations Low 01/22/2020 Medications famotidine (PEPCID) 20 mg tablet Take 2 tablets (40 mg total) by mouth nightly as needed for heartburn 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 8 Active cyclobenzaprine (FLEXERIL) 10 mg tablet [...] (04/12/2019): Added automatically from request for surgery [id number] Other constipation 04/11/2019 Non-intractable vomiting with nausea 04/11/2019 Gastroesophageal reflux disease without esophagi tis 04/11/2019 Resolved Problems Problem Noted Date Diagnosed Date Resolved Date Primary osteoarthritis of left hip 04/12/2020 08/10/2020 Overview (04/12/2020): Added automatically from request for surgery [id number] Encounters Date Type Department Care Team Description 01/10/2025 1:57 PM CDT - 01/10/2025 4:24 PM CDT Emergency [facility] Emergency Department 1 [place] [address] Dylon Carrillo MD Primary insomnia (Primary Dx) Discharge Disposition: Discharge to home or self care from Last 3 Months Surgical History Surgery Date Site/Laterality Comments CHOLECYSTECTOMY [...] disease) Anemia 1976 Arthritis 2009 Brain concussion 1990 Dysmenorrhea 2018 Migraines 2011 Non-intractable vomiting with nausea 04/11/2019 [...] Grandfather Juan Ramon Heart attack Maternal Grandmother [place] Heart disease Maternal Grandmother [place] Alcohol abuse Mother Marshal Sies Depression Mother Marshal Sies Diabetes Mother Marshal Sies Heart attack Mother Marshal Sies Heart disease Mother Marshal Sies Hyperlipidemia Mother Marshal Sies Hypertension Mother Marshal Sies Stroke Mother Marshal Sies Alcohol abuse Mother's Sister Merna Diabetes Paternal Grandmother [place] Depression Sister Pradeep Anesthesia problems Neg Hx Relation Name Status Comments Brother Niranjan Daughter Olya Father Uri Maternal Grandfather Juan Ramon Maternal Grandmother [place] Mother Marshal Sies Alive Mother's Sister Merna Paternal Grandmother [place] Sister Pradeep Social History Tobacco Use Types Packs/Day Years Used Date Smoking Tobacco: Never Smokeless Tobacco: Never Alcohol Use Standard Drinks/Week Comments Yes 0 (1 standard drink = 0.6 oz pur e alcohol) occasional [facility] Utilities Answer Date Recorded In the past 12 months has e electric, gas, oil, or water company [...] or ex-partner? No 04/06/2023 Social Connection and Isolation Panel Answer Date Recorded In a typical week, how many times do you talk on the phone with family, friends, or neighbors? More than three times a week 04/06/2023 How often do you get togethe r with friends or relatives? Once a week 04/06/2023 How often do you attend chur ch or yazdanism services? Never 04/06/2023 Do you belong to any clubs o r organizations such as amish groups, unions, fraternal or athletic groups, or [...] staff should administer the PHQ-9) 3 04/06/2023 [facility] - Occupational Stress [...] place to sleep or slept in a alf (including now)? No 04/06/2023 Personal Safety Answer Date Recorded Have you ever been in or are you currently in a harmful physical or emotional relationship or is someone making you feel afraid or unsafe? 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 Gender Identity Female 01/21/2020 9:55 AM CDT Sexual Orientation Straight 04/10/2019 9: 33 AM CDT Obstetrics History Last Filed Vital Signs Vital Sign Reading Time Taken Comments Blood Pressure 149/86 01/10/2025 12:05 PM CDT Pulse 96 01/10/2025 12:05 PM CDT Temperature 36.7 C (98.1 F) 01/10/2025 12:05 PM CDT Respiratory Rate 18 01/10/2025 12:05 PM CDT Oxygen Saturation 100% 01/10/2025 12:05 PM CDT Inhaled Oxygen Concentration - - Weight 79.4 kg (175 lb) 01/10/2025 12:05 PM CDT Height 165.1 cm (5' 5) 01/10/2025 12:05 PM CDT Body Mass Index 29.12 01/10/2025 12:05 PM CDT Plan of Treatment Health Maintenance Due Date Last Done Comments Breast Cancer Screening-Mammogram 1973 Colon Cancer Screening-Colonoscopy 1973 Hepatitis C Screening 1973 DTaP/Tdap/Td Vaccine (1 - Tdap) 1984 Hepatitis B Screening 09/14/1991 Regular Well Visit/Exam 18-64 09/14/1991 Zoster Vaccine (1 of 2) 09/14/2023 Depression Screening 04/06/2024 04/06/2023, 03/08/2022, 03/08/2022, Additional history exists Influenza Vaccine (#1) 2025 03/28/2016, 2013 Pneumococcal vaccine <65 Aged Out No longer eligible based on patient's age to complete this topic Medical Devices Implanted Type Area Coding Clerk Device Identifier Shelf Expiration Date Model / Serial / Lot [employer]uy [employer] [id number] [place] 54mm 36mm Hip Neutral Liner Acetabular Altrx Sterile Latex Free - [id number] Implanted:Qty: 1 on 04/29/2020 by Juan Ramon Barriga MD at [facility] Left: Hip [employer] 01/16/2025 [id number] / / [id number] [employer] [id number] [place] 54mm Sector Hip Shell Acetabular Gription Sterile Latex Free - [id number] Implanted:Qty: 1 on 04/29/2020 by Juan Ramon Barriga MD at [facility] Left: Hip [employer] 03/18/2030 [id number] / / [id number] [employer] [id number] Actis 99mm Collar Hip 2 06/01 High Offset Taper Stem Femoral - [id number] Implanted:Qty: 1 on 04/29/2020 by Juan Ramon Barriga MD at [facility] Left: Hip [employer] 12/16/2029 [id number] / / [id number] [employer] [id number] Articul/Rayshawn 36mm Cementless Hip +5mm 06/01 Taper Head Femoral Latex Free - [id number] Implanted:Qty: 1 on 04/29/2020 by Juan Ramon Barriga MD at [facility] Left: Hip [employer] 01/16/2025 [id number] / / [id number] [employer] Suture Barnum Fiberwire Biocomp Fibertak 1.3x1.7mm Lf Ar-3652tsp - [id number] Implanted:Qty: 1 on 03/14/2023 by Marcelino Ernandez MD at [facility] Right: Shoulder [employer] 12/17/2027 AR-[id number] / / [id number] [employer] Suture Barnum Fiberwire Knotless Biocomp Fibertak Lf Ar-3652sp - [id number] Implanted:Qty: 1 on 03/14/2023 by Marcelino Ernandez MD at [facility] Right: Shoulder [employer] 12/17/2027 AR-3652SP / / [id number] [employer] Swivelock C 4.75mm 19.1mm Closed Eyelet Vent Barnum Suture Ar-2324bcc - [id number] Implanted:Qty: 1 on 03/14/2023 by Marcelino Ernandez MD at [facility] Right: Shoulder [employer] 11/16/2026 AR-2324BCC / / [id number] [employer] Swivelock C 4.75mm 19.1mm Closed Eyelet Vent Barnum Suture Ar-2324bcc - [id number] Implanted:Qty: 1 on 03/14/2023 by Marcelino Ernandez MD at [facility] Right: Shoulder [employer] 11/16/2026 AR-2324BCC / / [id number] [employer] Suture Barnum Double Loaded Knotless Fibertak 2.6mm Ar-3632sp - [id number] Implanted:Qty: 1 on 09/18/2023 by Javan Villalobos MD at [facility] Right: Shoulder [employer] [id number] 03/18/2028 AR-3632SP / / [id number] [employer] Swivelock C 4.75mm 19.1mm Closed Eyelet Vent Barnum Suture Ar-2324bcc - [id number] Implanted:Qty: 1 on 09/18/2023 by Javan Villalobos MD at [facility] Right: Shoulder [employer] [id number] 06/18/2027 AR-2324BCC / / [id number] [employer] Swivelock C 4.75mm 19.1mm Closed Eyelet Vent Barnum Suture Ar-2324bcc - [id number] Implanted:Qty: 1 on 09/18/2023 by Javan Villalobos MD at [facility] Right: Shoulder [employer] [id number] 06/18/2027 AR-2324BCC / / [id number] [employer] Corkscrew Suturetape 5.5mm 14.7mm Bioabsorbable Full Thread 1.3mm Ar-1927bct - [id number] Implanted:Qty: 1 on 09/18/2023 by Javan Villalobos MD at [facility] Right: Shoulder [employer] [id number] 01/16/2025 AR-[id number] / / [id number] [employer] Suture Barnum Double Loaded Knotless Fibertak 2.6mm Ar-3632sp - [id number] Implanted:Qty: 1 on 09/18/2023 by Javan Vlilalobos MD at [facility] Right: Shoulder [employer] [id number] 03/18/2028 AR-3632SP / / [id number] Procedures Procedure Name Priority Date/Time Associated Diagnosis Comments CT HEAD WO CONTRAST ED 01/10/2025 3 :19 PM CDT POCT HCG, URINE Routine 01/10/2025 3:11 PM CDT URINALYSIS, MICROSCOPIC ONLY STAT 01/10/2025 3:08 PM CDT DRUGS OF ABUSE SCREEN, URINE WITHOUT CONFIRMATION STAT 01/10/2025 3:08 PM CDT URINALYSIS AND REFLEX TO MICROSCOPIC STAT 01/10/2025 3:08 PM CDT ECG 12-LEAD STAT 01/10/2025 2:53 PM CDT SALICYLATE LEVEL STAT 01/10/2025 2:20 PM CDT ETHANOL STAT 01/10/2025 2:20 PM CDT ACETAMINOPHEN LEVEL STAT 01/10/2025 2 :20 PM CDT EGFR STAT 01/10/2025 2:20 PM CDT DIFFERENTIAL AUTO STAT 01/10/2025 2:2 0 PM CDT COMPREHENSIVE METABOLIC PANEL STAT 01/10/2025 2:20 PM CDT CBC WITH AUTO DIFFERENTIAL STAT 01/10/2025 2:20 PM CDT from Last 3 Months Results * CT Head WO Contrast (01/10/2025 3:19 PM CDT) Anatomical Region Laterality Modality Head and Neck N/A Computed Tomogra phy 01/10/2025 3:54 PM CDT Impressions 01/10/2025 6:31 PM CDT No acute intracranial process. Dictated by: Tank Dalton M.D. The radiology attending physician has personally reviewed this study, and had reviewed and/or edited this written report and agrees with it. Electronically signed by: Mauricio Craig M.D. Narrative 01/10/2025 6:31 PM CDT EXAMINATION: CT head without contrast HISTORY: Worsening insomnia and memory loss TECHNIQUE: CT of the head was performed with images acquired from skull base to vertex without intravenous contrast. COMPARISON: None FINDINGS: There is no acute intracranial hemorrhage. Ventricles are of normal size and morphology. No mass effect or midline shift is present. The chirinos-white matter differentiation is normal. The visualized portions of the orbits are normal. The visualized portions of the mastoids are normal. The visualized portions of the paranasal sinuses are normal. No fractures are identified. Procedure Note Mauricio Craig MD PhD - 01/10/2025 EXAMINATION: CT head without contrast HISTORY: Worsening insomnia and memory loss TECHNIQUE: CT of the head was performed with images acquired from skull base to vertex without intravenous contrast. COMPARISON: None FINDINGS: There is no acute intracranial hemorrhage. Ventricles are of normal size and morphology. No mass effect or midline shift is present. The chirinos-white matter differentiation is normal. The visualized portions of the orbits are normal. The visualized portions of the mastoids are normal. The visualized portions of the paranasal sinuses are normal. No fractures are identified. IMPRESSION: No acute intracranial process. Dictated by: Tank Dalton M.D. The radiology attending physician has personally reviewed this study, and had reviewed and/or edited this written report and agrees with it. Electronically signed by: Mauricio Craig M.D. Dylon Carrillo MD IMG CT PROCEDURES Final R esult * POCT hCG, urine (01/10/2025 3:11 PM CDT) HCG, ur, POC Negative Negative Lot Number [id number] QC Backgroud Clear Acceptable QC Control Line Acceptable Urine 01/10/2025 3:11 PM CDT Dylon Carrillo MD POINT OF CARE TEST ORDERA BLES Final Result * (ABNORMAL) Urinalysis reflex to microscopic (01/10/2025 3:08 PM CDT) Color, ur Straw Yellow Clarity, ur Clear Clear [facility] Specific gravity, ur 1.027 1.003 - 1.030 [facility] pH, urine 6.0 [facility] Comment: Interpretive Data U rine pH is affected by diet, medications, systemic acid-base disturbances, and renal tubular function. pH may affect urinary stone formation. For example, urine pH below 6.0 may help reduce the tendency for calcium phosphate stones and pH greater than 6.0 may reduce the tendency for uric acid stone formation. Source: [facility] Current Interpretive Data was last revised on 2017 Protein, ur ql Negative Negative [facility] Glucose, ur ql Negative Negative [facility] Ketones, ur Negative Negative [facility] Bilirubin, ur Negative Negative [facility] Blood, ur 1+(A) Negative [facility] Urobilinogen, ur <2.0 <2.0 mg/dL [facility] Nitrite, ur Negative Negative [facility] Leukocyte esterase, ur Negative Negative [facility] UA reflex comment Reflex to microscopic UA will be performed. [facility] Urine 01/10/2025 3:08 PM CDT 01/10/2025 3:24 PM CDT Dylon Carrillo MD LAB URINE ORDERABLES Desi suarez Result [facility] Department [place] [address] * (ABNORMAL) Drugs of Abuse Screen, Urine without Confirmation (01/10/2025 3:08 PM CDT) Amphetamine, ur Not Detected CutOff 500ng/mL Comment: Interpretive Data - Amphetamines: Samples containing greater than 500 ng/mL d-methamphetamine or other cross-reacting amphetamine compounds are reported as positive. Amphetamine immunoassays are subject to significant false positive rates due to cross-reactivity of non-amphetamine drugs. Confirmatory testing required for definitive results. Current Interpretive Data was last reviewed 2023. Barbiturates, ur Not Detected CutOff 200ng/mL [facility] Comment: Interpretive Data - Barbiturates: Samples containing greater than 200 ng/mL secobarbital or other cross-reacting barbiturate compounds are reported as positive. False positive and false negative results are possible. Confirmatory testing required for definitive results. Current Interpretive Data was last reviewed 2023. Benzodiazepines, ur Screen Positive, presumptive (A) CutOff 100ng/mL [facility] Comment: Interpretive Data - Benzodiazepines: Samples containing greater than 100 ng/mL nordiazepam or other cross-reacting compounds are reported as positive. False positive and false negative results are possible. Confirmatory testing required for definitive results. Current Interpretive Data was last reviewed 2023. Cannabinoids, ur Not Detected CutOff 50 ng/mL [facility] Comment: Interpretive Data - Cannabinoids: Samples containing greater than 50 ng/mL delta-9 THC -COOH or other cross- reacting compounds are reported as positive. False positive and false negative results are possible. Confirmatory testing required for definitive results. Current Interpretive Data was last reviewed 2023. Cocaine, ur Not Detected CutOff 150ng/mL [facility] Comment: Interpretive Data - Cocaine: Samples containing greater than 150 ng/mL benzoylecgonine or other cross- reacting compounds are reported as positive. False positive and false negative results are possible. Confirmatory testing required for definitive results. Current Interpretive Data was last reviewed 2023. Fentanyl, Ur Not Detected CutOff 5 ng/mL [facility] Comment: Interpretive Data - Fentanyl: Samples containing greater than 5 ng/mL norfentanyl, fentanyl, or other cross-reacting fentanyl compounds are reported as positive. False positive and false negative results are possible. Confirmatory testing required for definitive results. Current Interpretive Data was last reviewed 2023. Methadone, ur Not Detected CutOff 300ng/mL [facility] Comment: Interpretive Data - Methadone: Samples containing greater than 300 ng/mL d,l-methadone or other cross-reacting compounds are reported as positive. False positive and false negative results are possible. Confirmatory testing required for definitive results. Current Interpretive Data was last reviewed 2023. Opiates, ur Not Detected CutOff 300ng/mL [facility] Comment: Interpretive Data - Opiates: Samples containing greater than 300 ng/mL morphine or other cross-reacting compounds are reported as positive. False positive and false negative results are possible. Confirmatory testing required for definitive results. Current Interpretive Data was last reviewed 2023. Oxycodone, ur Not Detected CutOff 100ng/mL [facility] Comment: Interpretive Data - Oxycodone: Samples containing greater than 100 ng/mL oxycodone or other cross-reacting compounds are reported as positive. False positive and false negative results are possible. Confirmatory testing required for definitive results. Current Interpretive Data was last reviewed 2023. Phencyclidine, ur Not Detected CutOff 25 ng/mL [facility] Comment: Interpretive Data - Phencyclidine: Samples containing greater than 25 ng/mL phencyclidine or other cross-reacting compounds are reported as positive. False positive and false negative results are possible. Confirmatory testing required for definitive results. Current Interpretive Data was last reviewed 2023. Urine Creatinine 109 mg/dL [facility] Comment: Interpretive Data Urine Creatinine: < 10 mg/dL is extremely dilute = or > 10 but < 20 mg/dL is dilute = or > 20 mg/dL is normal Current Interpretive Data was last revised on 2017. Urine 01/10/2025 3:08 PM CDT 01/10/2025 3:28 PM CDT Narrative [facility] - 01/10/2025 4:00 PM CDT Drug of Abuse screening is performed by immunoassay for medical purposes only. This is not to be used for Pain Management purposes. Dylon Carrillo MD LAB URINE ORDERABLES Desi suarez Result [facility] Department [place] [address] * (ABNORMAL) Urinalysis, microscopic only (01/10/2025 3:08 PM CDT) WBC, ur 0-5 0 - 5 /HPF RBC, ur 3-5(A) 0 - 2 /HPF [facility] Epithelial cells, squamous, ur 1-5 0 - 5 /HPF [facility] Bacteria, ur Trace(A) [facility] Mucous, ur Present(A) [facility] Urine 01/10/2025 3:08 PM CDT 01/10/2025 3:24 PM CDT us Dylon Carrillo MD LAB URINE ORDERABLES Desi l Result Performing Organization Address City/[facility] Co de Phone Number GENE AMARO [facility] Department [place] [address] * ECG 12-LEAD (01/10/2025 2:53 PM CDT) Narrative [facility] - 01/10/2025 2:53 PM CDT Dylon Carrillo MD 01/10/2025 2:54 PM ECG 12 lead Date/Time: 01/10/2025 2:53 PM Performed by: Dylon Carrillo MD Authorized by: Dylon Carrillo MD Comments: Interpreted by myself. Normal sinus rhythm at a rate of 90. No concerning ST segment elevation depression or T-wave inversion concerning for acute ischemia. Normal axis and intervals. us Dylon Carrillo MD ECG ORDERABLES Final Res ult Performing Organization Address [facility] Co de Phone Number [facility] * eGFR (01/10/2025 2:20 PM CDT) eGFR >90 >=60 mL/min/1. 73 m2 Comment: Interpretive Data Reference Interval Normal >/= 90 mL/min/1.73m2 Mildly decreased* 60 - 89 mL/min/1.73m2 Mildly to moderately decreased 45 - 59 mL/min/1.73m2 Moderately to severely decreased 30 - 44 mL/min/1.73m2 Severely decreased 15 - 29 mL/min/1.73m2 Kidney Failure < 15 mL/min/1.73m2 *Relative to young adult level Estimated glomerular filtration rate is determined by the 2020 CKD-EPI equation recommended by the National Kidney Foundation (A Unifying Approach to GFR Estimation: Recommendations of the NKF-ASK Task Force on Reassessing the Inclusion of Race in Diagnosing Kidney Disease, JASN 2020). The CKD-EPI equation should not be used for patients with unstable renal function and has not been validated in children and those over 70. Current interpretive data was last reviewed 2021. Blood 01/10/2025 2:20 PM CDT 01/10/2025 2:43 PM CDT us Dylon Carrillo MD LAB BLOOD ORDERABLES Desi suarez Result [facility] Department [place] [address] * Differential, auto (01/10/2025 2:20 PM CDT) Pathologist [facility] Neutrophil abs 3.37 1.50 - 6.50 K/cumm Imm gran abs 0.02 0.00 - 0.10 K/cumm [facility] Lymphocyte abs 2.52 0.80 - 3.30 K/cumm [facility] Monocyte abs 0.65 0.20 - 0.80 K/cumm [facility] Eosinophil abs 0.07 0.00 - 0.50 K/cumm [facility] Basophil abs 0.04 0.00 - 0.10 K/cumm [facility] Neutrophil pct 50.6 % [facility] Comment: Interpretive Data Percent cell count reference ranges are not reported, since discordance with absolute values may lead to misinterpretation of CBC data. Current Interpretive Data was last revised on 2017. Imm gran pct 0.3 % [facility] Comment: Interpretive Data Percent cell count reference ranges are not reported, since discordance with absolute values may lead to misinterpretation of CBC data. Current Interpretive Data was last revised on 2017. Lymphocyte pct 37.8 % [facility] Comment: Interpretive Data Percent cell count reference ranges are not reported, since discordance with absolute values may lead to misinterpretation of CBC data. Current Interpretive Data was last revised on 2017. Monocyte pct 9.7 % [facility] Comment: Interpretive Data Percent cell count reference ranges are not reported, since discordance with absolute values may lead to misinterpretation of CBC data. Current Interpretive Data was last revised on 2017. Eosinophil pct 1.0 % [facility] Comment: Interpretive Data Percent cell count reference ranges are not reported, since discordance with absolute values may lead to misinterpretation of CBC data. Current Interpretive Data was last revised on 2017. Basophil pct 0.6 % [facility] Comment: Interpretive Data Percent cell count reference ranges are not reported, since discordance with absolute values may lead to misinterpretation of CBC data. Current Interpretive Data was last revised on 2017. Blood 01/10/2025 2:20 PM CDT 01/10/2025 2:43 PM CDT Dylon Carrillo MD LAB BLOOD ORDERABLES Desi l Result Performing Organization Address City/[facility]/ZIP Co de Phone Number [facility] [place] [address] * CBC with auto differential (01/10/2025 2:20 PM CDT) WBC 6.67 3.80 - 9.90 K/cumm Hgb 14.4 11.9 - 15.5 g/dL [facility] Hct 44.4 35.6 - 45.5 % [facility] Plt 280 150 - 400 K/cumm [facility] MPV 9.3 9.1 - 12.3 fL [facility] RBC 5.15 3.90 - 5.20 M/cumm [facility] MCV 86.2 81.3 - 96.4 fL [facility] MCH 28.0 27.1 - 33.3 pg [facility] MCHC 32.4 32.3 - 35.7 g/dL [facility] RDW CV 12.2 11.1 - 14.9 % [facility] RDW SD 38.6 35.7 - 48.1 fL [facility] NRBC abs 0.00 0.00 - 0.01 K/cumm [facility] Blood 01/10/2025 2:20 PM CDT 01/10/2025 2:43 PM CDT Dylon Carrillo MD LAB BLOOD ORDERABLES Desi l Result Performing Organization Address City/[facility]/ZIP Co de Phone Number [facility] Department [place] [address] * Ethanol (01/10/2025 2:20 PM CDT) Ethanol <10 <=10 mg/dL Comment: Interpretive Data Legal limit of intoxication > or = 80 mg/dL Levels > or = 400 mg/dL are potentially TOXIC. Current interpretive data was last revised on 2018. Blood 01/10/2025 2:20 PM CDT 01/10/2025 2:43 PM CDT Dylon Carrillo MD LAB BLOOD ORDERABLES Desi l Result Performing Organization Address City/[facility] Co de Phone Number [facility] [place] [address] * (ABNORMAL) Acetaminophen level (01/10/2025 2:20 PM CDT) Acetaminophen 7(H) <=5 mcg/mL Comment: Interpretive Data Significant hepatic injury may occur and treatment with n-acetyl cysteine is generally recommended if the acetaminophen level exceeds: 150 mcg/mL at 4 hours after ingestion 75 mcg/mL at 8 hours after ingestion 38 mcg/mL at 12 hours after ingestion 19 mcg/mL at 16 hours after ingestion Consult toxicology or poison control ([phone]) for unknown ingestion time. Current interpretive data was last revised 2023. Blood 01/10/2025 2:20 PM CDT 01/10/2025 2:43 PM CDT Dylon Carrillo MD LAB BLOOD ORDERABLES Desi l Result Performing Organization Address City/[facility]/ZIP Co de Phone Number [facility] [address] * Salicylate level (01/10/2025 2:20 PM CDT) Salicylate <9.0 <=9.0 mg/dL Comment: Interpretive Data Toxic: 30 mg/dL or greater. Current interpretive data was last revised 2023. Blood 01/10/2025 2:20 PM CDT 01/10/2025 2:43 PM CDT us Dyoln Carrillo MD LAB BLOOD ORDERABLES Desi suarez Result [facility] [place] [address] * Comprehensive metabolic panel (01/10/2025 2:20 PM CDT) Sodium 143 135 - 145 mmol/L Potassium, pl 4.5 3.3 - 4.9 mmol/L [facility] Chloride 105 97 - 110 mmol/L [facility] CO2 28 22 - 32 mmol/L [facility] Anion gap 10 2 - 15 mmol/L [facility] BUN 17 6 - 25 mg/dL [facility] Creatinine 0.62 0.60 - 1.10 mg/dL [facility] Glucose 100 70 - 199 mg/dL [facility] Comment: Interpretive Data Fasting glucose >/= 126 mg/dl is diagnostic for diabetes. Fasting is defined as no caloric intake for at least 8 hours. Fasting glucose between 100 mg/dl to 125 mg/dl is diagnostic of prediabetes. In a patient with classic symptoms of hyperglycemia or hyperglycemic crisis, a random glucose >/= 200 mg/dl is diagnostic for diabetes. In the absence of unequivocal hyperglycemia, results should be confirmed by repeat testing. The classification and Diagnosis of Diabetes Diabetes Care 2021; 46: S19-S40. Current interpretive data was last revised 2022. Calcium 9.5 8.5 - 10.3 mg/dL [facility] Bilirubin, total 0.4 0.1 - 1.2 mg/dL [facility] Protein, pl 8.1 6.5 - 8.5 g/dL [facility] Albumin 4.9 3.5 - 5.0 g/dL [facility] Alk phos 103 40 - 130 Units/L [facility] ALT 23 7 - 45 Units/L [facility] AST 24 10 - 45 Units/L [facility] Blood 01/10/2025 2:20 PM CDT 01/10/2025 2:43 PM CDT us Dylon Carrillo MD LAB BLOOD ORDERABLES Desi suarez Result Performing Organization Address City/State/[facility] Co de Phone Number GENE [facility] Department [place] [address] from Last [address] Mon[address] Insurance [facility] CHOICE PLUS [facility] CHOICE PLUS [facility] CHOICE PLUS Advance Directives For more information, please contact: [phone] * Full Code (Latest Code Status on File) Date Activated Date Inactivated Comments 04/05/2023 7:38 PM 04/08/2023 3:43 PM * Full Code Date Activated Date Inactivated Comments 04/29/2020 11:33 AM 04/30/2020 10:01 PM Care Teams Tight Rope Walker Relationship Specialty Start Date End Date Sarita Gage NP [address] [place] [address] PCP - General Nurse Practitioner 02/24/23 Joanie Hinton PA Orthopedic Surgery 04/30/20 Miguel Saucedo PA [address] [place] [address] Physician Ceramic Engineer Orthopedic Surgery 03/14/23 Abraham Steinberg MD [address] [place] [address] Consulting Physician Infectious Diseases 04/08/23
--- OUTSIDE RECORDS SUMMARY | 2025-01-28 09:40 | XMS_ITS | Clinical Summary ---
Author Organization [facility] Address [address] [place] [address] Care Team Providers Care National Van Owner Operator Name Role Phone Sarita Gage APRN-HOME HEALTH NURSE Primary Care Provid er Source Comments [facility],non-owned Affiliates and Associated Physician Practices is amultiple site organization consisting of ambulatory clinics and hospital sitesin [place], [place], [place] and [place]. This disclosure is being madepursuant to the Care Everywhere program and may not contain all information available regarding this patient. Last updated 18.[facility] [employer] Allergies Active Allergy Reactions Criticality Noted Date [...] Comments Blood Pressure 124/64 06/26/2023 10:27 AM VERTICAL ROLL OPERATOR Pulse 99 06/26/2023 10:27 AM VERTICAL ROLL OPERATOR Temperature 36.1 C (97 F) 06/26/2023 10:27 AM VERTICAL ROLL OPERATOR Respiratory Rate - - Oxygen Saturation 96% 06/26/2023 10:27 AM VERTICAL ROLL OPERATOR Inhaled Oxygen Concentration - - Weight 81.8 kg (180 lb 6.4 oz) 06/26/2023 10:27 AM VERTICAL ROLL OPERATOR Height 167.6 cm (5' 6) 06/26/2023 10:27 AM VERTICAL ROLL OPERATOR Body Mass Index 29.12 06/26/2023 10:27 AM VERTICAL ROLL OPERATOR Plan of Treatment Health Maintenance Due Date Last Done Comments COLOGUARD (AGES 45-75) - COLON CA SCREENING 1973 COLON MONITORING 1973 COLONOSCOPY - COLON CA SCREENING 1973 CT COLONOGRAPHY - COLON CA SCREENING 1973 Colorectal Cancer Screening 1973 FIT - COLON CA SCREENING 1973 FLEX SIG - COLON CA SCREENING 1973 LIPID TESTING 1973 MAMMOGRAM 1973 HIV SCREENING 1988 HEPATITIS C SCREENING 09/09/1991 DTAP/TDAP/TD VACCINES (1 - Tdap) 1992 HEPATITIS B VACCINE (1 of 3 - 19+ 3-dose series) 1992 PAP SMEAR 1994 PNEUMOCOCCAL VACCINE 50+ (1 of 1 - PCV) 09/14/2023 ZOSTER VACCINE (1 of 2) 09/14/2023 COVID-19 VACCINE (1 - ) 02/18/2024 DEPRESSION SCREENING 06/19/2024 INFLUENZA VACCINE (#1) 2025 SCREENING FOR DIABETES 04/08/2026 , 04/07/2023, 04/05/2023, Additional history exists HIB VACCINE Aged Out No longer eligi ble based on patient's age to complete this topic HPV VACCINE Aged Out No longer eligi ble based on patient's age to complete this topic MENINGOCOCCAL (Group B) VACCINE SHARED DECISION-MAKING Aged Out No longer eligible based on patient's age to complete this topic MENINGOCOCCAL GROUPS A/C/Y/W VACCINE Aged Out No longer eligible based on patient's age to complete this topic Insurance [facility] Care Teams National Van Owner Operator Relationship Specialty Start Date End Date Sarita Gage, MARKET RESEARCH ANALYST-HOME HEALTH NURSE [address] [place] [address] PCP - General Nurse Practitioner Family 06/26/23
--- OUTSIDE RECORDS SUMMARY | 2025-01-28 09:40 | XMS_ITS | Encounter Summary ---
Author Organization [facility] Address [address] [place] [address] Care Team Providers Care Paper Pattern Folder Name Role Phone Gutierrez Hernández MD Primary Care Provider [phone] Joanie Hinton Unavailable [phone] Sarita Gage NP Primary Care Provider [phone] Miguel Saucedo Unavailable [phone] Abraham Steinberg MD Unavailable [phone]- [phone] Encounter Details Date Type Department Care Team (Late st Contact Info) Description 01/24/2020 Telephone [facility] [address] [place] [id number] Destiny Caban, RT Social History Tobacco Use Types Packs/Day Years Used Date Smoking Tobacco: Never Smokeless Tobacco: Never Alcohol Use Standard Drinks/Week Comments Yes 0 (1 standard drink = 0.6 oz pur e alcohol) occasional PHQ-2 Answer Date Recorded PHQ-2 Score 0 04/11/2019 Comments Unknown Sex and Gender Information Value Date Recorded Sex Assigned at Not on file Legal Sex Female 3:58 AM APPRAISAL COORDINATOR Gender Identity Female 01/21/2020 9:55 AM CDT Sexual Orientation Straight 04/10/2019 9: 33 AM CDT documented as of this encounter Plan of Treatment Not on file documented as of this encounter Visit Diagnoses Not on filedocumented in this encounter Care Teams Paper Pattern Folder Relationship Specialty Start Date End Date Gutierrez Hernández MD [address] [place] [address] PCP - General Family Medicine 03/18/19 02/23/23 Sarita Gage CARD CUTTER HELPER [address] [place] [address] PCP - General Nurse Practitioner 02/24/23 Joanie Hinton PA [address] [address] Orthopedic Surgery 04/30/20 Miguel Saucedo PA [address] [place] [address] Physician Agricultural Education Instructor Orthopedic Surgery 03/14/23 Abraham Steinberg MD [address] [place] [address] Consulting Physician Infectious Diseases 04/08/23 documented as of this encounter
[2025-01-28 09:54] LABS: Hematocrit 45.6 % (35.0-49.0); Hemoglobin 14.4 g/dL (12.0-15.0); Immature Granulocyte Percent A 0.4 % (0.0-0.0); Lymphocytes Absolute Auto 3.91 K/mm3 (1.10-4.50); Mean Corpuscular HGB Conc 31.6 g/dL (32-36); Mean Corpuscular Hemoglobin 27.6 pg (27.0-31.0); Mean Corpuscular Volume 87.4 fL (78.0-102.0); Nucleated Red Blood Cells Absolute Auto 0.00 K/mm3 (0.00-0.00); Nucleated Red Blood Cells Perc 0.0 % (0-0.0); Platelet Count Result 334 K/mm3 (150-420); Red Blood Count 5.22 M/mm3 (4.20-5.40); White Blood Count 8.4 K/mm3 (4.8-10.8)
[2025-01-28 10:22] LABS: Iron 137 ug/dL (37-170)
[2025-01-28 10:32] LABS: Percent Iron Saturation 36 % (20-50)
[2025-01-28 11:14] LABS: Vitamin B12 > 1000.0 pg/mL (239-931)
== END 2025-01-28 09:13 | disposition home or self-care (01) ==
LOC: CHSLAB 09:13
PROVIDERS: PCP Nurse Practitioner Family; Visit Provider Nurse Practitioner Family
DX: R79.0 Abnormal level of blood mineral (principal); R79.89 Other specified abnormal findings of blood chemistry
CPT/HCPCS: 36415; 82607; 83540; 83550; 85025; 85652

== ENCOUNTER 2025-02-26 09:21 | Outpatient (CLI) | payer OTHER, SELFPAY ==
--- NOTE | ~2025-02-26 | MM_ITS ---
EXAMINATION: MM screening danyel BI w tunde HISTORY: Screening TECHNIQUE: Craniocaudal and mediolateral oblique 3-D tomosynthesis images were obtained and synthetic 2-D images were generated. CAD analysis was submitted and interpreted. COMPARISON: Comparison to multiple prior studies sequentially, with oldest reviewed study dated , 08/28/2019 BREAST PARENCHYMAL COMPOSITION: The breasts are extremely dense, which lowers the sensitivity of mammography. FINDINGS: There is no evidence of suspicious mass, calcification, or architectural distortion to suggest malignancy in either breast. IMPRESSION: 1. No mammographic evidence of malignancy. 2. Recommend routine screening mammography in one year. BI-RADS Category 1: Negative Reviewed, dictated and finalized at location B.
--- OUTSIDE RECORDS SUMMARY | 2025-02-26 10:04 | XMS_ITS | Clinical Summary ---
Author Organization [facility] Address [address] [place] [address] Care Team Providers Care Air Valve Repairer Name Role Phone Sarita Gage APRN-GRAVITY FLOW IRRIGATOR Primary Care Provid er Source Comments [facility],non-owned Affiliates and Associated Physician Practices is amultiple site organization consisting of ambulatory clinics and hospital sitesin [place], [place], [place] and [place]. This disclosure is being madepursuant to the Care Everywhere program and may not contain all information available regarding this patient. Last updated 18.[facility] [employer] Allergies Active Allergy Reactions Criticality Noted Date [...] Comments Blood Pressure 124/64 06/26/2023 10:27 AM GALVANIZING POT RUNNER Pulse 99 06/26/2023 10:27 AM GALVANIZING POT RUNNER Temperature 36.1 C (97 F) 06/26/2023 10:27 AM GALVANIZING POT RUNNER Respiratory Rate - - Oxygen Saturation 96% 06/26/2023 10:27 AM GALVANIZING POT RUNNER Inhaled Oxygen Concentration - - Weight 81.8 kg (180 lb 6.4 oz) 06/26/2023 10:27 AM GALVANIZING POT RUNNER Height 167.6 cm (5' 6) 06/26/2023 10:27 AM GALVANIZING POT RUNNER Body Mass Index 29.12 06/26/2023 10:27 AM GALVANIZING POT RUNNER Plan of Treatment Health Maintenance Due Date [...] 19+ 3-dose series) 1992 PAP SMEAR 1994 SCREENING FOR DIABETES 06/26/2023 PNEUMOCOCCAL VACCINE 50+ (1 of 1 - PCV) 09/14/2023 ZOSTER VACCINE (1 of 2) 09/14/2023 COVID-19 VACCINE (1 - 2023-2 5 season) 2024 DEPRESSION SCREENING 06/19/2024 INFLUENZA VACCINE (#1) 2025 HIB VACCINE Aged Out No longer [...] patient's age to complete this topic Insurance [facility] Care Teams Air Valve Repairer Relationship Specialty Start Date End Date Sarita Gage, WEATHER CLERK-GRAVITY FLOW IRRIGATOR [address] [place] [address] PCP - General Nurse Practitioner Family 06/26/23
--- OUTSIDE RECORDS SUMMARY | 2025-02-26 10:04 | XMS_ITS | Clinical Summary ---
Author Organization [facility] Physician Office Building [address] [place] [id number] Care Team Providers Care Coordinator Of Online Programs Name Role Phone Joanie Hinton Unavailable [phone] Sarita Gage NP Primary Care Provider [phone] Miguel Saucedo Unavailable [phone] Abraham Steinberg MD Unavailable [phone] Allergies Active Allergy Reactions Criticality Noted Date Comments Hydrocodone-Acetaminophen Itching,Nausea & Vomiting Medium 06/23/2004 Latex Anaphylaxis,Swelling ,Palpit ations,Rash High 01/17/2006 Zolpidem Anxiety,Mental statu s changes,Palpitations Low 01/22/2020 Medications famotidine (PEPCID) 20 mg tablet Take 2 tablets (40 mg total) by mouth nightly as needed for heartburn 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 04/05/20 18 Active cyclobenzaprine (FLEXERIL) 10 mg tablet Take 1 tablet (10 mg total) by mouth 2 (two) times a day as needed for muscle spasms 07/17/19 21 Active atomoxetine (STRATTERA) 25 mg capsuleIndications :Attention-Deficit Hyperactivity Disorder Take 1 capsule (25 mg total) by mouth every morning 01/31/20 23 Active ibuprofen 200 mg tab/capIndications :Anti-inflammatory Take [...] every 6 (six) hours 60 tablet 1 09/18/19 24 Active ondansetron ODT (ZOFRAN-ODT) 4 mg disintegrating tabletIndications: Prevention of Post-Operative Nausea and Vomiting Take 1 tablet (4 mg total) by mouth every 8 (eight) hours as needed for nausea or vomiting 20 tablet 09/18/19 24 Active LORazepam (ATIVAN) 2 mg tablet 01/07/20 25 Active mirtazapine (REMERON) 15 mg tablet 01/21/20 25 Active busPIRone (BUSPAR) 10 mg tabletIndications: Generalized Anxiety Disorder 1 tablet by mouth twice daily 180 tablet 3 01/29/20 25 Active QUEtiapine (SEROquel) 25 mg tabletIndications: sleep Take 1 tablet (25 mg total) by mouth nightly 03/24/20 025 Discontin ued(Theryesenia shoemaker ) Active Problems Problem Noted Date Diagnosed Date S/P right rotator cuff repair 06/29/2023 Pyogenic arthritis of right shoulder region 06/19 Cellulitis of right upper extremity 04/05/2023 Arthritis of right acromioclavicular joint 03/01 Biceps tendinitis on right 03/01/2023 Tear of right rotator cuff 03/01/2023 Impingement syndrome of right shoulder Lumbar radiculopathy 03/08/2022 Insomnia secondary to chronic pain 03/08/2022 Sacroiliitis 03/08/2022 DDD (degenerative disc disease), lumbar 03/05/20 Degenerative lumbar spinal stenosis 03/05/2022 Trochanteric bursitis, left hip 08/11/2020 Aftercare following left hip joint replacement s urgery 08/10/2020 Non-intractable vomiting 04/12/2019 Overview (04/12/2019): Added automatically from request for surgery [id number] Other constipation 04/11/2019 Non-intractable vomiting with nausea 04/11/2019 Gastroesophageal reflux disease without esophagi tis 04/11/2019 Resolved Problems Problem Noted Date Diagnosed Date Resolved Date Primary osteoarthritis of left hip 04/12/2020 08/10/2020 Overview (04/12/2020): Added automatically from request for surgery [id number] Encounters Date Type Department Care Team Description 01/28/2025 11:00 AM CDT Office Visit [facility] Medicine Neuro Sleep [address] [facility] [address] [facility] 6th [address] [place] [id number] Deacon Christie PA Psychophysiological insomnia (Primary Dx); Anxiety disorder, unspecified type 01/10/2025 1:57 PM CDT - 01/10/2025 4:24 PM CDT Emergency [facility] Department [address] [place] [address] Dylon Carrillo MD Primary insomnia (Primary Dx) [...] Grandfather Juan Ramon Heart attack Maternal Grandmother [place] Heart disease Maternal Grandmother [place] Alcohol abuse Mother Marshal Sies Depression Mother Marshal Zamorano Diabetes Mother Marshal Zamorano Heart attack Mother Marshal Siegeovani Heart disease Mother Marshal Sies Hyperlipidemia Mother Marshal Sies Hypertension Mother Marshal Sies Stroke Mother Marshal Garridos Alcohol abuse Mother's Sister Merna Diabetes Paternal Grandmother [place] Depression Sister Pradeep Anesthesia problems Neg Hx Relation Name Status Comments Brother Niranjan Daughter Olya Father Uri Maternal Grandfather Juan Ramon Maternal Grandmother Elida Mother Marshal Zamorano Alive Mother's Sister Merna Paternal Grandmother [place] Sister Pradeep Social History Tobacco Use Types Packs/Day Years Used Date Smoking Tobacco: Never Smokeless Tobacco: Never Alcohol Use Standard Drinks/Week Comments Yes 0 (1 standard drink = 0.6 oz pur e alcohol) occasional [facility] Utilities Answer Date Recorded In the past 12 months has e [employer] gas, oil, or water [employer] threatened to shut off services in your [...] often do you attend chur ch or congregational services? Never 04/06/2023 Do you belong to any clubs o r organizations such as evangelical groups, unions, fraternal or athletic groups, or [...] staff should administer the PHQ-9) 3 04/06/2023 [facility] - Occupational Stress Questionnaire Answer Date Recorded [...] place to sleep or slept in a penitentiary (including now)? No 04/06/2023 Personal Safety Answer Date Recorded Have you ever been in or are you currently in a harmful physical or emotional relationship or is someone making you feel afraid or unsafe? Denies 01/10/2025 Comments No Sex and Gender Information Value Date Recorded Sex Assigned at Not on file Legal Sex Female 3:58 AM BREAST BUFFER Gender Identity Female 01/21/2020 9:55 AM CDT Sexual Orientation Straight 04/10/2019 9: 33 AM CDT Obstetrics History Last Filed Vital Signs Vital Sign Reading Time Taken Comments Blood Pressure 131/82 01/28/2025 10:40 AM CDT Pulse 94 01/28/2025 10:40 AM CDT Temperature 36.7 C (98 F) 01/28/2025 10:40 AM CDT Respiratory Rate 18 01/28/2025 10:40 AM CDT Oxygen Saturation 94% 01/28/2025 10:40 AM CDT Inhaled Oxygen Concentration - - Weight 77.8 kg (171 lb 8 oz) 01/28/2025 10:40 AM CDT Height 165.1 cm (5' 5) 01/28/2025 10:40 AM CDT Body Mass Index 28.54 01/28/2025 10:40 AM CDT Plan of Treatment Health Maintenance Due [...] this topic Medical Devices Implanted Type Area Bean Weigher Device Identifier Shelf Expiration Date Model / Serial / Lot [employer] [id number] [place] 54mm 36mm Hip Neutral Liner Acetabular Altrx Sterile Latex Free - [id number] Implanted:Qty: 1 on 04/29/2020 by Juan Ramon Barriga MD at [facility] Left: Hip [employer] 01/16/2025 [id number] / / [id number] [employer] [id number] [place] 54mm Sector Hip Shell Acetabular Gription Sterile Latex Free - [id number] Implanted:Qty: 1 on 04/29/2020 by Juan Ramon Barriga MD at [facility] Left: Hip [employer] 03/18/2030 [id number] / / [id number] Dep[employer] [id number] Actis 99mm Collar Hip 2 06/01 High Offset Taper Stem Femoral - [id number] Implanted:Qty: 1 on 04/29/2020 by Juan Ramon Barriga MD at [facility] Left: Hip [employer] 12/16/2029 [id number] / / [id number] [employer] [id number] Articul/Rayshawn 36mm Cementless Hip +5mm /14 Taper Head Femoral Latex Free - [id number] Implanted:Qty: 1 on 04/29/2020 by Juan Ramon Barriga MD at [facility] Left: Hip [employer] 01/16/2025 [id number] / / [id number] [employer] Suture Jay Fiberwire Biocomp Fibertak 1.3x1.7mm Lf Ar-3652tsp - [id number] Implanted:Qty: 1 on 03/14/2023 by Marcelino Ernandez MD at [facility] Right: Shoulder [employer] 12/17/2027 AR-[id number] / / [id number] [employer] Suture Jay Fiberwire Knotless Biocomp Fibertak Lf Ar-3652sp - [id number] Implanted:Qty: 1 on 03/14/2023 by Marcelino Ernandez MD at [facility] Right: Shoulder [employer] 12/17/2027 AR-3652SP / / [id number] [employer] Swivelock C 4.75mm 19.1mm Closed Eyelet Vent Jay Suture Ar-2324bcc - [id number] Implanted:Qty: 1 on 03/14/2023 by Marcelino Ernandez MD at [facility] Right: Shoulder [employer] 11/16/2026 AR-2324BCC / / [id number] [employer] Swivelock C 4.75mm 19.1mm Closed Eyelet Vent Jay Suture Ar-2324bcc - [id number] Implanted:Qty: 1 on 03/14/2023 by Marcelino Ernandez MD at [facility] Right: Shoulder [employer] 11/16/2026 AR-2324BCC / / [id number] [employer] Suture Jay Double Loaded Knotless Fibertak 2.6mm Ar-3632sp - [id number] Implanted:Qty: 1 on 09/18/2023 by Javan Villalobos MD at [facility] Right: Shoulder [employer] [id number] 03/18/2028 AR-3632SP / / [id number] [employer] Swivelock C 4.75mm 19.1mm Closed Eyelet Vent Jay Suture Ar-2324bcc - [id number] Implanted:Qty: 1 on 09/18/2023 by Javan Villalobos MD at [facility] Right: Shoulder [employer] [id number] 06/18/2027 AR-2324BCC / / [id number] [employer] Swivelock C 4.75mm 19.1mm Closed Eyelet Vent Jay Suture Ar-2324bcc - [id number] Implanted:Qty: 1 on 09/18/2023 by Javan Villalobos MD at [facility] Right: Shoulder [employer] [id number] 06/18/2027 AR-2324BCC / / [id number] [employer] Corkscrew Suturetape 5.5mm 14.7mm Bioabsorbable Full Thread 1.3mm Ar-1927bct - [id number] Implanted:Qty: 1 on 09/18/2023 by Javan Villalobos MD at [facility] Right: Shoulder [employer] [id number] 01/16/2025 AR-1927BCT / / [id number] [employer] Suture Jay Double Loaded Knotless Fibertak 2.6mm Ar-3632sp - [id number] Implanted:Qty: 1 on 09/18/2023 by Javan Villalobos MD at [facility] Right: Shoulder [employer] [id number] 03/18/2028 AR-3632SP / / [id number] Procedures Procedure Name Priority Date/Time Associated Diagnosis [...] by: Mauricio Craig M.D. Dylon Carrillo MD IM CT PROCEDURES Final R esult * POCT hCG, urine (01/10/2025 3:11 PM CDT) HCG, ur, POC Negative Negative Lot Number [id number] QC Backgroud Clear Acceptable QC Control Line Acceptable Urine 01/10/2025 3:11 PM CDT Dylon Carrillo MD POINT OF CARE TEST ORDERA BLES Final Result * (ABNORMAL) Urinalysis reflex to microscopic (01/10/2025 3:08 PM CDT) Color, ur Straw Yellow Clarity, ur Clear Clear [facility] Specific gravity, ur 1.027 1.003 - 1.030 [facility] pH, urine 6.0 [facility] Comment: Interpretive Data U rine pH is affected by diet, medications, systemic acid-base disturbances, and renal tubular function. pH may affect urinary stone formation. For example, urine pH below 6.0 may help reduce the tendency for calcium phosphate stones and pH greater than 6.0 may reduce the tendency for uric acid stone formation. Source: [facility] Current Interpretive Data was last revised on 2017 Protein, ur ql Negative Negative [facility] Glucose, ur ql Negative Negative [facility] Ketones, ur Negative Negative [facility] Bilirubin, ur Negative Negative [facility] Blood, ur 1+(A) Negative [facility] Urobilinogen, ur <2.0 <2.0 mg/dL [facility] Nitrite, ur Negative Negative [facility] Leukocyte esterase, ur Negative Negative [facility] UA reflex comment Reflex to microscopic UA will be performed. [facility] Urine 01/10/2025 3:08 PM CDT 01/10/2025 3:24 PM CDT Dylon Carrillo MD LAB URINE ORDERABLES Desi l Result [facility] [address] [facility] Department [place] [address] * (ABNORMAL) Drugs of Abuse Screen, Urine without Confirmation (01/10/2025 3:08 PM CDT) [facility] Amphetamine, ur Not Detected CutOff 500ng/mL Comment: Interpretive Data - Amphetamines: Samples containing greater than 500 ng/mL d-methamphetamine or other cross-reacting amphetamine compounds are reported as positive. Amphetamine immunoassays are subject to significant false positive rates due to cross-reactivity of non-amphetamine drugs. Confirmatory testing required for definitive results. Current Interpretive Data was last reviewed 2023. Barbiturates, ur Not Detected CutOff 200ng/mL [facility] Comment: Interpretive Data - Barbiturates: Samples containing greater than 200 ng/mL secobarbital or other cross-reacting barbiturate compounds are reported as positive. False positive and false negative results are possible. Confirmatory testing required for definitive results. Current Interpretive Data was last reviewed 2023. Benzodiazepines, ur Screen Positive, presumptive (A) CutOff 100ng/mL [facility] Comment: Interpretive Data - Benzodiazepines: Samples containing greater than 100 ng/mL nordiazepam or other cross-reacting compounds are reported as positive. False positive and false negative results are possible. Confirmatory testing required for definitive results. Current Interpretive Data was last reviewed 2023. Cannabinoids, ur Not Detected CutOff 50 ng/mL [facility] Comment: Interpretive Data - Cannabinoids: Samples containing greater than 50 ng/mL delta-9 THC -COOH or other cross- reacting compounds are reported as positive. False positive and false negative results are possible. Confirmatory testing required for definitive results. Current Interpretive Data was last reviewed 2023. Cocaine, ur Not Detected CutOff 150ng/mL [facility] Comment: Interpretive Data - Cocaine: Samples containing greater than 150 ng/mL benzoylecgonine or other cross- reacting compounds are reported as positive. False positive and false negative results are possible. Confirmatory testing required for definitive results. Current Interpretive Data was last reviewed 2023. Fentanyl, Ur Not Detected CutOff 5 ng/mL [facility] Comment: Interpretive Data - Fentanyl: Samples containing greater than 5 ng/mL norfentanyl, fentanyl, or other cross-reacting fentanyl compounds are reported as positive. False positive and false negative results are possible. Confirmatory testing required for definitive results. Current Interpretive Data was last reviewed 2023. Methadone, ur Not Detected CutOff 300ng/mL [facility] Comment: Interpretive Data - Methadone: Samples containing greater than 300 ng/mL d,l-methadone or other cross-reacting compounds are reported as positive. False positive and false negative results are possible. Confirmatory testing required for definitive results. Current Interpretive Data was last reviewed 2023. Opiates, ur Not Detected CutOff 300ng/mL [facility] Comment: Interpretive Data - Opiates: Samples containing greater than 300 ng/mL morphine or other cross-reacting compounds are reported as positive. False positive and false negative results are possible. Confirmatory testing required for definitive results. Current Interpretive Data was last reviewed 2023. Oxycodone, ur Not Detected CutOff 100ng/mL [facility] Comment: Interpretive Data - Oxycodone: Samples containing greater than 100 ng/mL oxycodone or other cross-reacting compounds are reported as positive. False positive and false negative results are possible. Confirmatory testing required for definitive results. Current Interpretive Data was last reviewed 2023. Phencyclidine, ur Not Detected CutOff 25 ng/mL [facility] Comment: Interpretive Data - Phencyclidine: Samples containing greater than 25 ng/mL phencyclidine or other cross-reacting compounds are reported as positive. False positive and false negative results are possible. Confirmatory testing required for definitive results. Current Interpretive Data was last reviewed 2023. Urine Creatinine 109 mg/dL [facility] Comment: Interpretive Data Urine Creatinine: < 10 mg/dL is extremely dilute = or > 10 but < 20 mg/dL is dilute = or > 20 mg/dL is normal Current Interpretive Data was last revised on 2017. Urine 01/10/2025 3:08 PM CDT 01/10/2025 3:28 PM CDT Narrative [facility] - 01/10/2025 4:00 PM CDT Drug of Abuse screening is performed by immunoassay for medical purposes only. This is not to be used for Pain Management purposes. Dylon Carrillo MD LAB URINE ORDERABLES Desi suarez Result [facility] Department [place] [address] * (ABNORMAL) Urinalysis, microscopic only (01/10/2025 3:08 PM CDT) Pathologist [facility] WBC, ur 0-5 0 - 5 /HPF RBC, ur 3-5(A) 0 - 2 /HPF [facility] Epithelial cells, squamous, ur 1-5 0 - 5 /HPF [facility] Bacteria, ur Trace(A) [facility] Mucous, ur Present(A) [facility] Urine 01/10/2025 3:08 PM CDT 01/10/2025 3:24 PM CDT us Dylon Carrillo MD LAB URINE ORDERABLES Desi l Result Performing Organization Address [facility] Co de Phone Number [facility] [address] [facility] Department [place] [address] * ECG 12-LEAD (01/10/2025 2:53 PM CDT) Narrative [facility] - 01/10/2025 2:53 PM CDT Dylon Carrillo [...] ORDERABLES Final Res ult Performing Organization Address City/[facility]/ZIP Co de Phone Number [facility] * eGFR (01/10/2025 2:20 PM CDT) Pathologist [facility] eGFR >90 >=60 mL/min/1. 73 m2 Comment: [...] of Race in Diagnosing Kidney Disease, JASN 202). The CKD-EPI equation should not be used for patients with unstable renal function and has not been validated in children and those over 70. Current interpretive data was last reviewed 2021. Blood 01/10/2025 2:20 PM CDT 01/10/2025 2:43 PM CDT Dylon Carrillo MD LAB BLOOD ORDERABLES Desi suarez Result [facility] Department [place] [address] * Differential, auto (01/10/2025 2:20 PM CDT) Pathologist [facility] Neutrophil abs 3.37 1.50 - 6.50 K/cumm Imm gran abs 0.02 0.00 - 0.10 K/cumm [facility] Lymphocyte abs 2.52 0.80 - 3.30 K/cumm [facility] Monocyte abs 0.65 0.20 - 0.80 K/cumm [facility] Eosinophil abs 0.07 0.00 - 0.50 K/cumm [facility] Basophil abs 0.04 0.00 - 0.10 K/cumm [facility] Neutrophil pct 50.6 % [facility] Comment: Interpretive Data Percent cell count reference ranges are not reported, since discordance with absolute values may lead to misinterpretation of CBC data. Current Interpretive Data was last revised on 2017. Imm gran pct 0.3 % [facility] Comment: Interpretive Data Percent cell count reference ranges are not reported, since discordance with absolute values may lead to misinterpretation of CBC data. Current Interpretive Data was last revised on 2017. Lymphocyte pct 37.8 % [facility] Comment: Interpretive Data Percent cell count reference ranges are not reported, since discordance with absolute values may lead to misinterpretation of CBC data. Current Interpretive Data was last revised on 2017. Monocyte pct 9.7 % [facility] Comment: Interpretive Data Percent cell count reference ranges are not reported, since discordance with absolute values may lead to misinterpretation of CBC data. Current Interpretive Data was last revised on 2017. Eosinophil pct 1.0 % [facility] Comment: Interpretive Data Percent cell count reference ranges are not reported, since discordance with absolute values may lead to misinterpretation of CBC data. Current Interpretive Data was last revised on 2017. Basophil pct 0.6 % [facility] Comment: Interpretive Data Percent cell count reference ranges are not reported, since discordance with absolute values may lead to misinterpretation of CBC data. Current Interpretive Data was last revised on 2017. Blood 01/10/2025 2:20 PM CDT 01/10/2025 2:43 PM CDT us Dylon Carrillo MD LAB BLOOD ORDERABLES Desi suarze Result [facility] Department [place] [address] * CBC with auto differential (01/10/2025 2:20 PM CDT) WBC 6.67 3.80 - 9.90 K/cumm Hgb 14.4 11.9 - 15.5 g/dL [facility] Hct 44.4 35.6 - 45.5 % [facility] Plt 280 150 - 400 K/cumm [facility] MPV 9.3 9.1 - 12.3 fL [facility] RBC 5.15 3.90 - 5.20 M/cumm [facility] MCV 86.2 81.3 - 96.4 fL [facility] MCH 28.0 27.1 - 33.3 pg [facility] MCHC 32.4 32.3 - 35.7 g/dL [facility] RDW CV 12.2 11.1 - 14.9 % [facility] RDW SD 38.6 35.7 - 48.1 fL [facility] NRBC abs 0.00 0.00 - 0.01 K/cumm [facility] Blood 01/10/2025 2:20 PM CDT 01/10/2025 2:43 PM CDT Dylon Carrillo MD LAB BLOOD ORDERABLES Desi l Result Performing Organization Address City/[facility] Co de Phone Number [facility] Department [place] [address] * Ethanol (01/10/2025 2:20 PM CDT) Ethanol <10 <=10 mg/dL Comment: Interpretive Data Legal limit of intoxication > or = 80 mg/dL Levels > or = 400 mg/dL are potentially TOXIC. Current interpretive data was last revised on 2018. Blood 01/10/2025 2:20 PM CDT 01/10/2025 2:43 PM CDT Dylon Carrillo MD LAB BLOOD ORDERABLES Desi l Result Performing Organization Address City/[facility] Co de Phone Number [facility] Department [place] [address] * (ABNORMAL) Acetaminophen level (01/10/2025 2:20 PM [...] after ingestion Consult toxicology or poison control ([phone]) for unknown ingestion time. Current interpretive data was last revised 2023. Blood 01/10/2025 2:20 PM CDT 01/10/2025 2:43 PM CDT Dylon Carrillo MD LAB BLOOD ORDERABLES Desi l Result Performing Organization Address City/[facility] Co de Phone Number [facility] [id number] [place] [address] * Salicylate level (01/10/2025 2:20 PM CDT) Salicylate <9.0 <=9.0 mg/dL Comment: Interpretive Data Toxic: 30 mg/dL or greater. Current interpretive data was last revised 2023. Blood 01/10/2025 2:20 PM CDT 01/10/2025 2:43 PM CDT Dylon Carrillo MD LAB BLOOD ORDERABLES Desi l Result Performing Organization Address [facility] de Phone Number [facility] [place] [address] * Comprehensive metabolic panel (01/10/2025 2:20 PM CDT) Pathologist [facility] [place] Sodium 143 135 - 145 mmol/L Potassium, pl 4.5 3.3 - 4.9 mmol/L [facility] Chloride 105 97 - 110 mmol/L [facility] CO2 28 22 - 32 mmol/L [facility] Anion gap 10 2 - 15 mmol/L [facility] BUN 17 6 - 25 mg/dL [facility] Creatinine 0.62 0.60 - 1.10 mg/dL [facility] Glucose 100 70 - 199 mg/dL [facility] Comment: Interpretive Data Fasting glucose >/= 126 [...] classification and Diagnosis of Diabetes Diabetes Care 202; 46: S19-S40. Current interpretive data was last revised 2022. Calcium 9.5 8.5 - 10.3 mg/dL [facility] Bilirubin, total 0.4 0.1 - 1.2 mg/dL [facility] Protein, pl 8.1 6.5 - 8.5 g/dL [facility] Albumin 4.9 3.5 - 5.0 g/dL [facility] Alk phos 103 40 - 130 Units/L [facility] ALT 23 7 - 45 Units/L [facility] AST 24 10 - 45 Units/L [facility] Blood 01/10/2025 2:20 PM CDT 01/10/2025 2:43 PM CDT us Dylon Carrillo MD LAB BLOOD ORDERABLES Desi suarez Result Performing Organization Address City/State/[facility] Co de Phone Number [facility] Department [place] [address] from Last 3 Months Insurance [facility] [place] [address] [facility] CHOICE PLUS [facility] CHOICE PLUS Advance Directives For more information, please contact: [phone] * Full Code (Latest Code Status on File) Date Activated Date Inactivated Comments 04/05/2023 7:38 PM 04/08/2023 3:43 PM * Full Code Date Activated Date Inactivated Comments 04/29/2020 11:33 AM 04/30/2020 10:01 PM Care Teams Coordinator Of Online Programs Relationship Specialty Start Date End Date Sarita Gage NP [address] [place] [address] PCP - General Nurse Practitioner 02/24/23 Joanie Hinton PA Orthopedic Surgery 04/30/20 Miguel Saucedo PA [address] [place] [address] [address] [place] [address] Physician Basket Turner Orthopedic Surgery 03/14/23 Abraham Steinberg MD [address] [place] [address] [address] [place] [address] Consulting Physician Infectious Diseases 04/08/23
--- OUTSIDE RECORDS SUMMARY | 2025-02-26 10:04 | XMS_ITS | Encounter Summary ---
Author Organization [facility] Healthcare Address [address] [place] [address] Care Team Providers Care Risk Assessment Analyst Name Role Phone Gutierrez Hernández MD Primary Care Provider [phone] Joanie Hinton Unavailable [phone] Sarita Gage NP Primary Care Provider [phone] Miguel Saucedo Unavailable [phone] Abraham Steinberg MD Unavailable +- [phone] Encounter Details Date Type Department Care Team (Late st Contact Info) Description 01/24/2020 Telephone [facility] [address] [place] [address] Destiny Caban, RT Social History Tobacco Use Types Packs/Day Years Used Date Smoking Tobacco: Never Smokeless Tobacco: Never Alcohol Use Standard Drinks/Week Comments Yes 0 (1 standard drink = 0.6 oz pur e alcohol) occasional PHQ-2 Answer Date Recorded PHQ-2 Score 0 04/11/2019 Comments Unknown Sex and Gender Information Value Date Recorded Sex Assigned at Not on file 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 Gender Identity Female 01/21/2020 9:55 AM CDT Sexual Orientation Straight 04/10/2019 9: 33 AM CDT documented as of this encounter Plan of Treatment Not on file documented as of this encounter Visit Diagnoses Not on filedocumented in this encounter Care Teams Risk Assessment Analyst Relationship Specialty Start Date End Date Gutierrez Hernández MD [address] [place] [address] PCP - General Family Medicine 03/18/19 02/23/23 Sarita Gage AQUATIC ECOLOGIST [address] [place] [address] PCP - General Nurse Practitioner 02/24/23 Joanie Hinton PA [address] [address] Orthopedic Surgery 04/30/20 Miguel Saucedo PA [address] [facility] [address] [place] [address] Physician Fitter / Welder Orthopedic Surgery 03/14/23 Abraham Steinberg MD [address] [facility] [address] [place] [address] Consulting Physician Infectious Diseases 04/08/23 documented as of this encounter
== END 2025-02-26 09:22 | disposition home or self-care (01) ==
LOC: CHSIMG 09:22
PROVIDERS: PCP Nurse Practitioner Family; Visit Provider Obstetrics & Gynecology
DX: Z12.31 Encounter for screening mammogram for malignant neoplasm of breast (principal)
CPT/HCPCS: 77063; 77067

== ENCOUNTER 2025-06-02 15:52 | Emergency (ER) | payer OTHER, SELFPAY ==
--- NOTE | ~2025-06-02 | CT_ITS ---
Kaykay Collins EXAMINATION: CT abdomen pelvis w con COMPARISON: None HISTORY: Right abdominal pain TECHNIQUE: Axial images were obtained through the abdomen, pelvis post administration of IV contrast. Oral contrast was also administered. Coronal reconstruction images were obtained from the axial views. CT scan performed using dose optimization techniques including the following automated exposure control; adjustment of mA and/or kV; use of iterative reconstruction technique. Automatic exposure control was used to reduce radiation dose. Permanent radiation dose record is archived to PACS. FINDINGS: CT abdomen: LUNG BASES: The lung bases are clear. The visualized portions of the heart and pericardium are unremarkable. LIVER: Portal vein patent. No intrahepatic biliary duct dilatation. SPLEEN: Unremarkable. KIDNEYS: Right Kidney: Unremarkable. No calculi. No hydronephrosis. Left Kidney: Unremarkable. No calculi. No hydronephrosis ADRENAL GLANDS: Unremarkable. PANCREAS: Mild pancreatic atrophy. GALLBLADDER/BILIARY: Post cholecystectomy. STOMACH AND ESOPHAGUS: The stomach is decompressed. BOWEL/MESENTERY: Moderate fecal content, no colitis or diverticulitis. The appendix appears normal. Mesentery normal. No thickened or dilated loops of small bowel. ADENOPATHY/RETROPERITONEUM: No lymphadenopathy. AORTA/VASCULATURE: Normal caliber aorta. FREE FLUID OR FREE AIR: None. CT pelvis: SOLID ORGANS/REPRODUCTIVE: Post hysterectomy. No adnexal mass. BLADDER: Artifact limits evaluation of the bladder. OSSEOUS STRUCTURES: Left hip arthroplasty. No sclerotic or lytic lesions. OVERLYING SOFT TISSUES: Unremarkable. IMPRESSION: 1. No etiology identified to explain the patient's symptoms. Follow-up suggested if symptoms persist. Reviewed, dictated and finalized at location P. ROL PANEL BUILDER IMPRESSION: 1. No etiology identified to explain the patient's symptoms. Follow-up suggeste d if symptoms persist.
[2025-06-02 15:52] VITALS: BP 145/86; PULSE 90; RESP 16; TEMP 36.8; O2SAT 97
--- NOTE | 2025-06-02 15:59 | ED.ABDPAIN ---
HPI - Abdominal Pain General Chief Complaint: Abdominal Pain Stated Complaint: abdominal pain Time Seen by Provider: 06/02/25 15:57 Source: patient Mode of arrival: ambulatory Limitations: no limitations History of Present Illness HPI narrative: 49 years old white female came to the ED by private car complaining of sharp intermittent right abdominal pain associated with nausea, vomiting and diarrhea started 6 days ago. The diarrhea and vomiting are improving over the last few days. Today her main complaint is dry heaves no vomiting, no diarrhea. History of GERD, cholecystectomy, hysterectomy. Patient does not smoke or use drugs, drink occasionally. Related Data Home Medications ?Medication ?Instructions ?Recorded ?Confirmed ?Last Taken ?Type famotidine 40 mg tablet 40 mg PO QHS 04/10/23 02/26/25 10/24/23 History Allergies Allergy/AdvReac Type Severity Reaction Status Date / Time acetaminophen (From Vicodin) Allergy Mild Vomiting Verified 02/26/25 11:01 hydrocodone (From Vicodin) Allergy Mild Vomiting Verified 02/26/25 11:01 zolpidem (From Ambien) Allergy Mild Nightmare Verified 02/26/25 11:01 latex Allergy Unknown Dyspnea / Verified 02/26/25 11:01 SOB Review of Systems Review of Systems: All systems reviewed & are unremarkable except as noted in HPI and below PMFSH Past Medical History Medical History Generalized abdominal pain Constipation Ulnar tunnel syndrome Depression 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 Acid reflux Anemia Anxiety Depression Migraines Vaginal delivery Surgical History Surgical History H/O shoulder surgery History of hip replacement Fusion of toes History of cholecystectomy History of bilateral salpingectomy History of laparoscopic-assisted vaginal hysterectomy Hx of tonsillectomy Family History Family History Father Diabetes mellitus Family history of hypercholesterolemia Hypertension Malignant neoplasm of prostate Cerebrovascular accident Mother Diabetes mellitus Family history of hypercholesterolemia Hypertension Patient's mother is in good health Cerebrovascular accident Social History Social History Social History: The patient is and she has 2 children. She occasionally drinks a glass a wine. 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 She occasionally drinks a glass of wine. Her is the power family law attorney for healthcare Code status full code Smoking status: Never smoker Alcohol intake: current Alcohol use details: rarely Substance use: never Substance use type: does not use Lack of Transportation: No Lack of Food: Never True Current Housing: I Have Housing Concerned About Future Housing: No Difficulty Paying Gas/Electric Bills: No Difficulty Paying for Meds: No Currently Unemployed: No Education: Associate Degree Difficulty w/ Childcare or Family Care: No Living arrangements: with family Occupation/Education: occupation Gender identity (if verbalized by the patient): Female Sexual Orientation (if Verbalized by the Patient): Straight or Heterosexual Spiritual care concerns: No Exam Narrative: General appearance: Well-developed, well-nourished Skin: Normal color Head: Normocephalic, nontraumatic Eyes: Clear conjunctiva ENT: Oropharynx normal, ears normal, nose normal Neck: Supple, nontender Chest and respiratory: Airway patent, no respiratory distress, no accessory muscle use Heart: Regular rate/rhythm Abdomen: Soft, mild diffuse tenderness right abdomen, no guarding or rebound, no bruises, no organomegaly, quiet bowel sounds Vascular: Normal peripheral pulses, normal capillary refill. Musculoskeletal: Normal range of motion, nontender back Neurologic: Alert and oriented ?3, UPWARD BOUND DIRECTOR is normal as tested, no gross motor deficit Course Vital Signs Vital signs: Vital Signs Temperature 36.8 C 06/02/25 15:52 Pulse Rate 90 06/02/25 15:52 Respiratory Rate 16 06/02/25 15:52 Blood Pressure 145/86 H 06/02/25 15:52 Pulse Oximetry 97 06/02/25 15:52 Oxygen Delivery Room Air 06/02/25 15:52 Temperature 36.8 C 06/02/25 15:52 Pulse Rate 87 06/02/25 17:15 Respiratory Rate 18 06/02/25 17:15 Blood Pressure 106/57 L 06/02/25 17:15 Pulse Oximetry 100 06/02/25 17:15 Oxygen Delivery Room Air 06/02/25 17:15 [facility] Narrative Medical decision making narrative: Patient came with right abdominal pain Vital signs: Physical examination consistent with right lower quadrant tenderness Differential diagnosis include appendicitis, urinary tract infection, constipation, colitis, diverticulitis, abdominal wall pain Blood workup today includes CBC, CMP, lipase showed unremarkable abnormalities Urine analysis showed no evidence of infection CT abdomen and pelvis with IV contrast showed no acute allergy identified to explain the patient's symptoms. Diagnosis abdominal pain, gastroenteritis Prescription of Zofran The pt was discharged to home.the pt,s condition upon discharge was fair,education was provided to the pt in reference to the final impression,discharge study results,treatment,prognosis and need for follow up . Differential Diagnosis Differential Diagnosis: As above Lab Data 06/02/25 16:28 06/02/25 16:28 Labs: Lab Results 06/02/25 06/02/25 Range/Units 16:14 16:28 WBC 7.6 (4.8-10.8) K/mm3 RBC 4.34 (4.20-5.40) M/mm3 Hgb 12.4 (12.0-15.0) g/dL Hct 38.5 (35.0-49.0) % MCV 88.7 (78.0-102.0) fL MCH 28.6 (27.0-31.0) pg MCHC 32.2 (32-36) g/dL RDW 13.4 (11.6-14.4) % Plt Count 312 (150-420) K/mm3 MPV 8.6 L (9.2-11.8) fl Immature Gran % (Auto) 0.5 H (0.0-0.0) % Neut % (Auto) 50.7 (50.0-70.0) % Lymph % (Auto) 38.3 (18.0-42.0) % [place] % (Auto) 6.0 (2.0-11.0) % Eos % (Auto) 4.2 (1.0-6.0) % Baso % (Auto) 0.3 (0.0-1.0) % Lymph # (Auto) 2.92 (1.10-4.50) K/mm3 [place] # (Auto) 0.46 (0.10-0.90) K/mm3 Eos # (Auto) 0.32 (0.02-0.50) K/mm3 Baso # (Auto) 0.02 (0.00-0.10) K/mm3 Abs Immat Gran (auto) 0.04 H (0.00-0.00) K/mm3 Absolute Neuts (auto) 3.86 (1.70-7.20) K/mm3 Absolute Nucleated RBC 0.00 (0.00-0.00) K/mm3 Nucleated RBC % 0.0 (0-0.0) % Sodium 142 (137-145) mmol/L Potassium 3.6 (3.4-5.0) mmol/L Chloride 106 (98-107) mmol/L Carbon Dioxide 26 (22-30) mmol/L Anion Gap 10 (4-12) mmol/L BUN 14 (7-17) mg/dL Creatinine 0.64 L (0.7-1.0) mg/dL Estim Creat Clear Calc Not Reportable Estimated GFR > 60 (59 - ) Glucose 87 (65-110) mg/dL Calculated Osmolality 293 (285-295) mOsm/kg Lactic Acid 0.6 L (0.7-2.0) mmol/L Calcium 9.4 (8.4-10.2) mg/dL Total Bilirubin 0.4 (0.2-1.3) mg/dL AST 25 (14-36) U/L ALT 19 (6-35) U/L Alkaline Phosphatase 75 (38-126) U/L Total Protein 7.0 (6.3-8.2) g/dL Albumin 4.7 (3.5-5.1) g/dL Lipase 62 (23-300) U/L Urine Color Light yellow (Yellow) Urine Appearance Clear (Clear) Urine pH 6.0 (5.0-8.0) Ur Specific [place] <= 1.005 L (1.010-1.020) Urine Protein Negative (Negative) Urine Glucose (UA) Negative (Negative) Urine Ketones Negative (Negative) Ur Blood (Man) Trace-intact H (Negative) Urine Nitrate Negative (Negative) Urine Bilirubin Negative (Negative) Urine Urobilinogen 0.2 (0.2-1.0) mg/dL Leukocyte Esterase Rfl Negative (Negative) CHERYL/UL Imaging Data Radiologist's impression: ITS Impressions Abdomen/Pelvis CT 06/02/25 17:19 IMPRESSION: 1. No etiology identified to explain the patient's symptoms. Follow-up suggested if symptoms persist. Discharge Plan Discharge Clinical Impression: Gastroenteritis, Abdominal pain Patient Disposition: Home Condition: Stable Instructions: Gastroenteritis (ED) Additional Instructions: Return if symptoms are worsening , call your family physician for appointment, take Tylenol as as needed for aches and pain, continue home medications. Patient Language: French Prescriptions: No Action metoclopramide HCl 5 mg tablet 5 mg PO QID PRN (Reason: nausea and vomiting) Qty: 30 0RF famotidine 40 mg tablet 40 mg PO QHS pantoprazole 40 mg tablet,delayed release (DR/EC) See Rx Instructions .ROUTE .COMPLEX Qty: 180 3RF Dose Instruction: TAKE 1 TABLET BY MOUTH TWICE DAILY Rx Instructions: TAKE 1 TABLET BY MOUTH TWICE DAILY lorazepam 2 mg tablet 2 mg PO QHS PRN (Reason: insomnia) Qty: 20 0RF Rx Instructions: please do not refill until 01/25/2025 - Monday ondansetron 4 mg tablet,disintegrating See Rx Instructions .ROUTE .COMPLEX Qty: 30 1RF Dose Instruction: PLACE ONE (1) TABLET BY MOUTH EVERY EIGHT HOURS NEEDED FOR NAUSEA AND VOMITING Rx Instructions: PLACE ONE (1) TABLET BY MOUTH EVERY EIGHT HOURS NEEDED FOR NAUSEA AND VOMITING cyclobenzaprine 10 mg tablet See Rx Instructions .ROUTE .COMPLEX Qty: 90 1RF Dose Instruction: TAKE 1 TABLET BY MOUTH 3 TIMES DAILY NEEDED FOR MUSCLE SPASM Rx Instructions: TAKE 1 TABLET BY MOUTH 3 TIMES DAILY NEEDED FOR MUSCLE SPASM Follow-up/Referrals: Sarita Gage NP [Primary Care Provider, Family Practice]
[2025-06-02 16:24] LABS: Add Urine Microscopic? NO; Appearance Urine Clear (Clear); Glucose Urine UA Negative (Negative); Leukocyte Esterase Ur Negative LEU/UL (Negative); Nitrate Urine Negative (Negative); Specific Grav Ur <= 1.005 (1.010-1.020)
[2025-06-02 16:32] LABS: Hematocrit 38.5 % (35.0-49.0); Hemoglobin 12.4 g/dL (12.0-15.0); Immature Granulocyte Percent A 0.5 % (0.0-0.0); Lymphocytes Absolute Auto 2.92 K/mm3 (1.10-4.50); Mean Corpuscular HGB Conc 32.2 g/dL (32-36); Mean Corpuscular Hemoglobin 28.6 pg (27.0-31.0); Mean Corpuscular Volume 88.7 fL (78.0-102.0); Nucleated Red Blood Cells Absolute Auto 0.00 K/mm3 (0.00-0.00); Nucleated Red Blood Cells Perc 0.0 % (0-0.0); Platelet Count Result 312 K/mm3 (150-420); Red Blood Count 4.34 M/mm3 (4.20-5.40); White Blood Count 7.6 K/mm3 (4.8-10.8)
[2025-06-02] MEDS: SODIUM CHLORIDE 0.9% IV 1,000 ML 999 ML IV CONT (16:40)
[2025-06-02 16:44] LABS: Alanine Aminotransferase 19 U/L (6-35); Albumin Level 4.7 g/dL (3.5-5.1); Alkaline Phosphatase 75 U/L (38-126); Anion Gap 10 mmol/L (4-12); Aspartate Amino Transferase 25 U/L (14-36); Bilirubin,Total 0.4 mg/dL (0.2-1.3); Blood Urea Nitrogen 14 mg/dL (7-17); Calcium 9.4 mg/dL (8.4-10.2); Carbon Dioxide 26 mmol/L (22-30); Chloride 106 mmol/L (98-107); Estimated Glomerular Filt Rate > 60; Glucose 87 mg/dL (65-110); Lipase 62 U/L (23-300); Osmolality Calculated 293 mOsm/kg (285-295); Potassium 3.6 mmol/L (3.4-5.0); Sodium 142 mmol/L (137-145); Total Protein 7.0 g/dL (6.3-8.2)
[2025-06-02 16:45] VITALS: BP 112/88; PULSE 83; RESP 16; O2SAT 100
[2025-06-02 17:15] VITALS: BP 106/57; PULSE 87; RESP 18; O2SAT 100
[2025-06-02 17:41] VITALS: BP 120/68; PULSE 87; RESP 18; O2SAT 99
--- OUTSIDE RECORDS SUMMARY | 2025-06-02 18:05 | XMS_ITS | Clinical Summary ---
Author Organization [facility] Address [address] [place] [address] Care Team Providers Care It Quality Analyst Name Role Phone Sarita Gage APRN-VACUUM DRUM DRIER OPERATOR Primary Care Provid er Source Comments [facility],non-owned Affiliates and Associated Physician Practices is amultiple site organization consisting of ambulatory clinics and hospital sitesin [place], [place], [place] and [place]. This disclosure is being madepursuant to the Care Everywhere program and may not contain all information available regarding this patient. Last updated 18.[facility] Allergies Active Allergy Reactions Criticality Noted Date [...] Comments Blood Pressure 124/64 06/26/2023 10:27 AM PROPERTY DAMAGE CLAIMS ADJUSTOR Pulse 99 06/26/2023 10:27 AM PROPERTY DAMAGE CLAIMS ADJUSTOR Temperature 36.1 C (97 F) 06/26/2023 10:27 AM PROPERTY DAMAGE CLAIMS ADJUSTOR Respiratory Rate - - Oxygen Saturation 96% 06/26/2023 10:27 AM PROPERTY DAMAGE CLAIMS ADJUSTOR Inhaled Oxygen Concentration - - Weight 81.8 kg (180 lb 6.4 oz) 06/26/2023 10:27 AM PROPERTY DAMAGE CLAIMS ADJUSTOR Height 167.6 cm (5' 6) 06/26/2023 10:27 AM PROPERTY DAMAGE CLAIMS ADJUSTOR Body Mass Index 29.12 06/26/2023 10:27 AM PROPERTY DAMAGE CLAIMS ADJUSTOR Plan of Treatment Health Maintenance Due Date [...] 09/14/2023 ZOSTER VACCINE (1 of 2) 09/14/2023 DEPRESSION SCREENING 06/19/2024 COVID-19 VACCINE (1 - 2024-2 6 season) 2025 INFLUENZA VACCINE (#1) 2025 HIB VACCINE Aged [...] patient's age to complete this topic Insurance [facility] Care Teams It Quality Analyst Relationship Specialty Start Date End Date Sarita Gage, CIRCUS HAND-VACUUM DRUM DRIER OPERATOR [address] [place] [address] PCP - General Nurse Practitioner Family 06/26/23
--- OUTSIDE RECORDS SUMMARY | 2025-06-02 18:12 | XMS_ITS | Encounter Summary ---
Author Organization [facility] Healthcare Address [address] [place] [address] Care Team Providers Care Fax Machine Repairer Name Role Phone Gutierrez Hernández MD Primary Care Provider [phone] Joanie Hinton Unavailable [phone] Sarita Gage NP Primary Care Provider [phone] Miguel Saucedo Unavailable [phone] Abraham Steinberg MD Unavailable [phone]- [phone] Encounter Details Date Type Department Care Team (Late st Contact Info) Description 01/24/2020 Telephone [facility] [address] [place] [id number] Destiny Caban, RT Social History Tobacco Use Types Packs/Day Years Used Date Smoking Tobacco: Never Smokeless Tobacco: Never Alcohol Use Standard Drinks/Week Comments Yes 0 (1 standard drink = 0.6 oz pur e alcohol) occasional PHQ-2 Answer Date Recorded PHQ-2 Score 0 04/11/2019 Comments Unknown Sex and Gender Information Value Date Recorded Sex Assigned at Not on file 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 Gender Identity Female 01/21/2020 9:55 AM CDT Sexual Orientation Straight 04/10/2019 9: 33 AM CDT documented as of this encounter Plan of Treatment Not on file documented as of this encounter Visit Diagnoses Not on filedocumented in this encounter Care Teams Fax Machine Repairer Relationship Specialty Start Date End Date Gutierrez Hernández MD [address] [place] [address] PCP - General Family Medicine 03/18/19 02/23/23 Sarita Gage [employer] [address] [place] [address] PCP - General Nurse Practitioner 02/24/23 Joanie Hinton PA [address] [place] [address] Orthopedic Surgery 04/30/20 Miguel Saucedo PA [address] [facility] [address] [place] [address] Physician Poultry Farmer Egg Orthopedic Surgery 03/14/23 Abraham Steinberg MD [address] [facility] [address] [place] [address] Consulting Physician Infectious Diseases 04/08/23 documented as of this encounter
--- OUTSIDE RECORDS SUMMARY | 2025-06-02 18:13 | XMS_ITS | Clinical Summary ---
Author Organization [facility] Physician Office Building [address] [place] [id number] Care Team Providers Care Exterminator Helper Termite Name Role Phone Joanie Hinton Unavailable [phone] Sarita Gage NP Primary Care Provider [phone] Miguel Saucedo Unavailable [phone] Abraham Steinberg MD Unavailable [phone] Allergies Active Allergy Reactions Criticality Noted Date Comments Hydrocodone-Acetaminophen Itching,Nausea & Vomiting Medium 06/23/2004 Latex Anaphylaxis,Swelling ,Palpit ations,Rash High 01/17/2006 Zolpidem Anxiety,Mental statu s changes,Palpitations Low 01/22/2020 Medications famotidine (PEPCID) 20 mg tablet Take 2 tablets (40 mg total) by mouth nightly as needed for heartburn 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 8 Active cyclobenzaprine (FLEXERIL) 10 mg tablet Take 1 tablet (10 mg total) by mouth 2 (two) times a day as needed for muscle spasms 1 Active atomoxetine (STRATTERA) 25 mg capsuleIndications :Attention-Deficit Hyperactivity Disorder Take 1 capsule (25 mg total) by mouth every morning 3 Active ibuprofen 200 mg tab/capIndications :Anti-inflammatory [...] nausea or vomiting 20 tablet 4 Active LORazepam (ATIVAN) 2 mg tablet 5 Active mirtazapine (REMERON) 15 mg tablet 5 Active busPIRone (BUSPAR) 10 mg tabletIndications: Generalized Anxiety Disorder 1 tablet by mouth twice daily 180 tablet 3 5 Active Active Problems Problem Noted Date Diagnosed Date S/P right rotator cuff repair 06/29/2023 Pyogenic arthritis of right shoulder region 06/19 Anxiety 06/26/2023 Cellulitis of right upper extremity 04/05/2023 Arthritis [...] left hip joint replacement s urgery 08/10/2020 Psoas tendinitis of left side 08/02/2019 Tear of left acetabular labrum 07/18/2019 Non-intractable vomiting 04/12/2019 Overview (04/12/2019): Added automatically from request for surgery [id number] Other constipation 04/11/2019 Non-intractable vomiting with nausea 04/11/2019 Gastroesophageal reflux disease without esophagi tis 04/11/2019 Sinus tachycardia 02/28/2017 Resolved Problems Problem Noted Date Diagnosed Date Resolved Date Primary osteoarthritis of left hip 04/12/2020 08/10/2020 Overview (04/12/2020): Added automatically from request for surgery [id number] Encounters Date Type Department Care Team Description 04/08/2025 10:20 AM CDT Office Visit [facility] Orthopaedic Surgery [address] [place] [address] Javan Villalobos MD Rotator cuff tendinitis, right (Primary Dx) 04/08/2025 8:30 AM CDT Ancillary Procedure [facility] [address] [place] [address] Traumatic complete tear of right rotator cuff, initial encounter 03/20/2025 11:20 AM CDT Office Visit [facility] Orthopaedic Surgery [address] [place] [address] Javan Villalobos MD Traumatic complete tear of right rotator cuff, initial encounter (Primary Dx) 03/20/2025 11:15 AM CDT - 03/20/2025 11:59 PM CDT Hospital Encounter [facility] Radiology at [facility] [address] [place] [address] Right shoulder pain, unspecified chronicity Discharge Disposition: Discharge to home or self care 03/13/2025 2:00 PM CDT Office Visit [facility] Neuro Sleep [address] 6th [address] [place] [id number] Elizabeth Keenan, PhD Insomnia, unspecified type (Primary Dx) from Last 3 Months Surgical History Surgery [...] 1976 Arthritis 2009 Brain concussion 1989 Dysmenorrhea 2018 Migraines 2010 Non-intractable vomiting with nausea 04/11/2019 Family History [...] Grandfather Juan Ramon Heart attack Maternal Grandmother [place] Heart disease Maternal Grandmother [place] Alcohol abuse Mother Marshal Sies Depression Mother Marshal Sies Diabetes Mother Marshal Sies Heart attack Mother Marshal Sies Heart disease Mother Marshal Sies Hyperlipidemia Mother Marshal Sies Hypertension Mother Marshal Sies Stroke Mother Marshal Sies Alcohol abuse Mother's Sister Merna Diabetes Paternal Grandmother [place] Depression Sister Pradeep Anesthesia problems Neg Hx Relation Name Status Comments Brother Niranjan Daughter Olya Father Uri Maternal Grandfather Juan Ramon Maternal Grandmother [place] Mother Marshal Sies Alive Mother's Sister Merna Paternal Grandmother [place] Sister Pradeep Social History Tobacco Use Types Packs/Day Years Used Date Smoking Tobacco: Never Smokeless Tobacco: Never Alcohol Use Standard Drinks/Week Comments Yes 0 (1 standard drink = 0.6 oz pur e alcohol) occasional C Utilities Answer Date Recorded In the past 12 months has [facility] [employer], [employer], oil, or water [employer] threatened to shut off services in your [...] 04/06/2023 How often do you attend chur or pentecostalism services? Never 04/06/2023 Do you belong to any clubs o r organizations such as anglican groups, unions, fraternal or athletic groups, or [...] staff should administer the PHQ-9) 3 04/06/2023 [facility] Occupat ional Health - Occupational Stress [...] place to sleep or slept in a halfway (including now)? No 04/06/2023 Personal Safety Answer Date Recorded Have you ever been in or are you currently in a harmful physical or emotional relationship or is someone making you feel afraid or unsafe? 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 Gender Identity Female 01/21/2020 9:55 AM [...] this topic Medical Devices Implanted Type Area Motor And Generator Brush Maker Device Identifier Shelf Expiration Date Model / Serial / Lot Depuy [employer] [id number] Kennard 54mm 36mm Hip Neutral Liner Acetabular Altrx Sterile Latex Free - [id number] Implanted:Qty: 1 on 04/29/2020 by Juan Ramon Barriga MD at [facility] Left: Hip [employer] 01/16/2025 [id number] / / [id number] Depuy [employer] [id number] Kennard 54mm Sector Hip Shell Acetabular Gription Sterile Latex Free - [id number] Implanted:Qty: 1 on 04/29/2020 by Juan Ramon Barriga MD at [facility] Left: Hip [employer] 03/18/2030 [id number] / / [id number] Depuy [employer] [id number] Actis 99mm Collar Hip 2 12/14 High Offset Taper Stem Femoral - [id number] Implanted:Qty: 1 on 04/29/2020 by Juan Ramon Barriga MD at [facility] Left: Hip [employer] 12/16/2029 [id number] / / [id number] Depuy [employer] [id number] Articul/Rayshawn 36mm Cementless Hip +5mm 12/14 Taper Head Femoral Latex Free - [id number] Implanted:Qty: 1 on 04/29/2020 by Juan Ramon Barriga MD at [facility] Left: Hip [employer] 01/16/2025 [id number] / / [id number] [employer] Suture Gibson Fiberwire Biocomp Fibertak 1.3x1.7mm Lf Ar-3652tsp - [id number] Implanted:Qty: 1 on 03/14/2023 by Marcelino Ernandez MD at [facility] Right: Shoulder [employer] 12/17/2027 AR-[id number] / / [id number] [employer] Suture Gibson Fiberwire Knotless Biocomp Fibertak Lf Ar-3652sp - [id number] Implanted:Qty: 1 on 03/14/2023 by Marcelino Ernandez MD at [facility] Right: Shoulder [employer] 12/17/2027 AR-3652SP / / [id number] [employer] Swivelock C 4.75mm 19.1mm Closed Eyelet Vent Gibson Suture Ar-2324bcc - [id number] Implanted:Qty: 1 on 03/14/2023 by Marcelino Ernandez MD at [facility] Right: Shoulder [employer] 11/16/2026 AR-2324BCC / / [id number] [employer] Swivelock C 4.75mm 19.1mm Closed Eyelet Vent Gibson Suture Ar-2324bcc - [id number] Implanted:Qty: 1 on 03/14/2023 by Marcelino Ernandez MD at [facility] Right: Shoulder [employer] 11/16/2026 AR-2324BCC / / [id number] [employer] Suture Gibson Double Loaded Knotless Fibertak 2.6mm Ar-3632sp - [id number] Implanted:Qty: 1 on 09/18/2023 by Javan Villalobos MD at [facility] Right: Shoulder [employer] [id number] 03/18/2028 AR-3632SP / / [id number] [employer] Swivelock C 4.75mm 19.1mm Closed Eyelet Vent Gibson Suture Ar-2324bcc - [id number] Implanted:Qty: 1 on 09/18/2023 by Javan Villalobos MD at [facility] Right: Shoulder [employer] [id number] 06/18/2027 AR-2324BCC / / [id number] [employer] Swivelock C 4.75mm 19.1mm Closed Eyelet Vent Gibson Suture Ar-2324bcc - [id number] Implanted:Qty: 1 on 09/18/2023 by Javan Villaloobs MD at [facility] Right: Shoulder [employer] [id number] 06/18/2027 AR-2324BCC / / [id number] [employer] Inc Corkscrew Suturetape 5.5mm 14.7mm Bioabsorbable Full Thread 1.3mm Ar-1927bct - [id number] Implanted:Qty: 1 on 09/18/2023 by Javan Villalobos MD at [facility] Right: Shoulder [employer] [id number] 01/16/2025 AR-1927BCT / / [id number] [employer] Suture Gibson Double Loaded Knotless Fibertak 2.6mm Ar-3632sp - [id number] Implanted:Qty: 1 on 09/18/2023 by Javan Villalobos MD at [facility] Right: Shoulder [employer] [id number] 03/18/2028 AR-3632SP / / [id number] Procedures Procedure Name Priority Date/Time Associated Diagnosis Comments FL ARTHROCENTESIS ASPIR&/INJ MAJOR JT/BURSA W/O US Routine 04/08/2025 10:20 AM CDT Rotator cuff tendinitis, right MRI SHOULDER RIGHT WO CONTRAST Schedule Routine, Read Routine (OP Routine) 04/08/2025 8:11 AM CDT Traumatic complete tear of right rotator cuff, initial encounter XR SHOULDER RIGHT 2 OR MORE VIEWS Schedule Routine, Read Routine (OP Routine) 03/20/2025 11:18 AM CDT Right shoulder pain, unspecified chronicity from Last 3 Months Results * FL ARTHROCENTESIS ASPIR&/INJ MAJOR JT/BURSA W/O US (04/08/2025 10:20 AM CDT) Narrative Javan Villalobos MD - 04/08/2025 10:20 AM CDT Javan Villalobos MD 04/08/2025 4:57 PM Subacromial injection Performed by: Javan Villalobos MD Authorized by: Javan Villalobos MD Subacromial Injection: Consent Given by: Patient Verbal consent obtained?: Yes Supporting Documentation: Indications: Pain Procedure Details: Site: Right Subacromial Patient position: Seated Needle Size: 22 G Approach: Posterior Medications: 3 mL lidocaine 10 mg/mL (1 %); 3 mL BUPivacaine HCl 0.5 % (5 mg/mL); 40 mg triamcinolone 40 mg/mL Patient tolerance: Patient tolerated the procedure well with no immediate complications us Javan Villalobos MD IN CLINIC/BEDSIDE ORD ERABLES Final Result * MRI Shoulder Right WO Contrast (04/08/2025 8:11 AM CDT) Anatomical Region Laterality Modality Upper Extremities Right Magnetic Reson ance 04/08/2025 10:1 7 AM CDT Impressions 04/08/2025 11:42 AM CDT 1. Intact right rotator cuff repair with no recurrent tear, tendon retraction, or muscle atrophy. 2. Right acromioplasty and distal clavicle excision with biceps tenodesis. Dictated by: Rickey Singh M.D. The radiology attending physician has personally reviewed this study, and had reviewed and/or edited this written report and agrees with it. Electronically signed by: Brian Alfonso M.D. Narrative 04/08/2025 11:42 AM CDT EXAMINATION: 1. MRI right shoulder without contrast HISTORY: Acute right shoulder pain after injury at work status post arthroscopic rotator cuff repair. Evaluate for recurrent tear. FINDINGS: Comparison is made to radiographs from 03/20/2025. MR examination of the right shoulder was performed with a local coil. Transverse, oblique coronal, and oblique sagittal short TR/TE and fast spin-echo images are obtained. Postsurgical findings of acromioplasty with distal clavicle excision and release of the coracoacromial ligament. There is moderate subacromial subdeltoid bursitis. Postsurgical changes of revised rotator cuff repair. The rotator cuff muscle bulk is normal. The subscapularis is intact. The supraspinatus and infraspinatus cuff tendons are intact. On this nonarthrographic evaluation, the superior labrum and bicipital anchor appear intact. There has been biceps tenodesis. The labrum below the equator is normal. There is no glenohumeral chondrosis. There is a physiologic amount of fluid within the glenohumeral joint. No loose bodies are identified. The bone marrow signal is normal. Prominent right axillary lymph nodes. Procedure Note Brian Alfonso MD - 04/08/2025 EXAMINATION: 1. MRI right shoulder without contrast HISTORY: Acute right shoulder pain after injury at work status post arthroscopic rotator cuff repair. Evaluate for recurrent tear. FINDINGS: Comparison is made to radiographs from 03/20/2025. MR examination of the right shoulder was performed with a local coil. Transverse, oblique coronal, and oblique sagittal short TR/TE and fast spin-echo images are obtained. Postsurgical findings of acromioplasty with distal clavicle excision and release of the coracoacromial ligament. There is moderate subacromial subdeltoid bursitis. Postsurgical changes of revised rotator cuff repair. The rotator cuff muscle bulk is normal. The subscapularis is intact. The supraspinatus and infraspinatus cuff tendons are intact. On this nonarthrographic evaluation, the superior labrum and bicipital anchor appear intact. There has been biceps tenodesis. The labrum below the equator is normal. There is no glenohumeral chondrosis. There is a physiologic amount of fluid within the glenohumeral joint. No loose bodies are identified. The bone marrow signal is normal. Prominent right axillary lymph nodes. IMPRESSION: 1. Intact right rotator cuff repair with no recurrent tear, tendon retraction, or muscle atrophy. 2. Right acromioplasty and distal clavicle excision with biceps tenodesis. Dictated by: Rickey Singh M.D. The radiology attending physician has personally reviewed this study, and had reviewed and/or edited this written report and agrees with it. Electronically signed by: Brian Alfonso M.D. Javan Villalobos MD IM MRI PROCEDURES Fi nal Result * XR Shoulder Right 2 or More Views (03/20/2025 11:18 AM CDT) Anatomical Region Laterality Modality Upper Extremities, Shoulder Right Comp uted Radiography 03/20/2025 11:4 6 AM CDT Impressions 03/20/2025 11:46 AM CDT Postsurgical changes of rotator cuff repair and distal clavicular resection. Electronically signed by: Geo Mclean M.D. Narrative 03/20/2025 11:46 AM CDT XR SHOULDER RIGHT 2 OR MORE VIEWS HISTORY: Right shoulder pain. FINDINGS: 4 views of the right shoulder are obtained and compared with 05/02/2023. There are postsurgical changes of rotator cuff repair and distal clavicular resection. There is no acute fracture or dislocation. The glenohumeral joint space is preserved. Alignment is normal. Procedure Note Geo Mclean MD - 03/20/2025 XR SHOULDER RIGHT 2 OR MORE VIEWS HISTORY: Right shoulder pain. FINDINGS: 4 views of the right shoulder are obtained and compared with 05/02/2023. There are postsurgical changes of rotator cuff repair and distal clavicular resection. There is no acute fracture or dislocation. The glenohumeral joint space is preserved. Alignment is normal. IMPRESSION: Postsurgical changes of rotator cuff repair and distal clavicular resection. Electronically signed by: Geo Mclean M.D. Javan Villalobos MD IMG XR PROCEDURES Fin al Result from Last 3 Months Insurance [facility] CHOICE PLUS [facility] CHOICE PLUS [facility] CHOICE PLUS Advance Directives For more information, please contact: [phone] * Full Code (Latest Code Status on File) Date Activated Date Inactivated Comments 04/05/2023 7:38 PM 04/08/2023 3:43 PM * Full Code Date Activated Date Inactivated Comments 04/29/2020 11:33 AM 04/30/2020 10:01 PM Care Teams Exterminator Helper Termite Relationship Specialty Start Date End Date Sarita Gage NP [address] [place] [address] PCP - General Nurse Practitioner 02/24/23 Joanie Hinton PA Orthopedic Surgery 04/30/20 Miguel Saucedo PA [address] [place] [address] Physician Clinical Services Specialist Orthopedic Surgery 03/14/23 Abraham Steinberg MD [address] [place] [address] Consulting Physician Infectious Diseases 04/08/23
== END 2025-06-02 17:41 | disposition home or self-care (01) ==
PROVIDERS: Emergency Provider Emergency Medicine; PCP Nurse Practitioner Family
DX: K52.9 Noninfective gastroenteritis and colitis, unspecified (principal)
CPT/HCPCS: 36415; 74177; 80053; 81003; 83605; 83690; 85025; 96360; 99284; J7030; Q9967